=== PATIENT | female | born 1940 | race African-American/Black ===

== ENCOUNTER 2016-12-03 09:02 | Inpatient (IN) ==
[2016-12-03] MEDS ORDERED: ACETAMINOPHEN 500 MG TABLET PO STA (09:45)
[2016-12-03] MEDS ORDERED: VANCOMYCIN INJ 1,500 MG in SODIUM CHLORIDE 0.9% 250 ML IV STA (09:45)
--- NOTE | 2016-12-03 09:48 | Emergency Department Note ---
Justino Madrigal Mantricia, am scribing for, and in the presence of, Aditya Goldsmith MD 09:46. Rupal Madrigal Charles R, MD, personally performed the services described in this documentation, ascribed by Luis Badillo in my presence, and it is both accurate and complete 948 . Arrival - Arrival Chief Complaint: Altered Mental Status Stated Complaint: altered Mental Status ED Nursing Triage Note: pt transferred from [facility] due to fever that has been going on since the 26 of november. The staff there also states that the pt is more confused today. The fevers have been low grade not to exceed 100.0 f. Mode of Arrival: Stretcher Limitations: No Limitations Source: Patient, Family (Daughter) Time Seen by Provider: 12/03/16 09:30 - History of Present Illness HPI Narrative: Pt is a 75 y/o black female arriving to ED by EMS as a transfer from [facility] with c/o a fever that has been waxing and waning since November 26. Daughter reports that pt's temperature was checked last night at 101. She has an appointment to have her graft changed on Thursday. Pt dialyze every T//S. Pt also states that her bottom has been hurting due to her bed sores. She has a normal routine including feeding herself; however, pt is bedridden due to a CVA years ago. Pt's PCP is Dr. Rodrigues. No other complaints are reported to ED. Onset (ago): hour(s) Consistency: constant Severity: mild Allergies/Adverse Reactions: Allergies Allergy/AdvReac Type Severity Reaction Status Date / Time ADHESIVE PADS Allergy Severe BLISTER Uncoded 12/03/16 10:59 Home Medications: Home Medications Medication Instructions Recorded Confirmed Type Allopurinol [Zyloprim] 100 mg PO DAILY 08/29/16 10/29/16 History Aspirin [Ecotrin] 81 mg PO DAILY 08/29/16 10/29/16 History Bisoprolol Fumarate 10 mg PO DAILY 08/29/16 10/29/16 History Cetirizine HCl [ZyrTEC Cap] 10 mg PO DAILY 08/29/16 10/29/16 History Cinacalcet [Sensipar] 30 mg PO DAILY W/SUPPER 08/29/16 10/29/16 History Folic Acid Tab 1 mg PO DAILY 08/29/16 10/29/16 History Gabapentin Cap/Tab [Neurontin 200 mg PO DAILY 08/29/16 10/29/16 History Cap/Tab] HYDROcodone/ACETAMIN 7.5-325 1 tablet PO Q6H PRN 08/29/16 10/29/16 History [[place] 7.5-325] Insulin Glargine [Lantus] 22 unit SUBCUT BID 08/29/16 10/29/16 History Multivitamin [Multivitamins] 1 each PO DAILY 08/29/16 10/29/16 History NIFEdipine [Nifedipine ER] 90 mg PO DAILY 08/29/16 10/29/16 History Nitroglycerin Sl Tab [Nitrostat] 0.4 mg SL Q5M PRN 08/29/16 10/29/16 History Ondansetron Odt Tab [Zofran Odt] 4 mg PO Q4H PRN 08/29/16 10/29/16 History Simvastatin 20 mg PO BEDTIME 08/29/16 10/29/16 History Tizanidine HCl [Zanaflex] 2 mg PO Q6H 08/29/16 10/29/16 History metOLazone [Zaroxolyn] 2.5 mg PO DAILY 08/29/16 10/29/16 History predniSONE TAB [PredniSONE] 20 mg PO DAILY 08/29/16 10/29/16 History Acetaminophen 500 mg PO Q6HR PRN 08/30/16 10/29/16 History Lidocaine [Lidocaine 5% Patch] 1 patch TOP DAILY 08/30/16 10/29/16 History Sevelamer Carbonate Tab [Renvela 1,600 mg PO BID W/MEALS 08/30/16 10/29/16 History Tab] Ascorbic Acid [Vitamin C] 1,000 mg PO DAILY 10/09/16 10/29/16 History Insulin Lispro [HumaLOG] See Protocol SUBCUT ACHS 10/09/16 10/29/16 History Zinc Amino Acid Chelate [Zinc] 50 mg PO DAILY 10/09/16 10/29/16 History Review of System - Review of System 12 point system: reviewed and no additional remarkable complaints except as stated - Review of System Constitutional: Present: fever (101 last night). Absent: chills, diaphoresis Eyes: Absent: discharge, pain Head/Ears/Nose/Throat: Absent: earache, epistaxis Respiratory: Absent: cough, respiratory distress, wheezing Cardiovascular: Absent: chest pain, palpitations, orthopnea Gastrointestinal: Absent: abdominal pain, nausea, vomiting, diarrhea Genitourinary female: Absent: abnormal menses, dysuria Musculoskeletal: Present: back pain. Absent: arm pain, leg pain, neck pain Skin: Present: other (bed sores). 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 WRIST) Renal: History of: Dialysis, Renal Failure Gastrointestinal: History of: Clostridium Difficile No history of: GERD Hematology: History of: Anemia (anemia of chronic disease) No history of: Blood Transfusion Reaction - Surgical History Cardiac Surgeries: Sugical HX of: Cardiac Catheterization (WITH STENTS) Thoracic Surgeries: Patient denies;: Kidney (Renal Surgery) Neurologic Surgeries: Patient denies: Neurologic Surgery Abdominal Surgeries: Surgical HX of: Colonoscopy Reproductive Surgeries: Patient denies;: Gynecologic Surgery - Family History Family History: Reports;: Family Cancer (SISTER, OVARIAN CA), Family Diabetes ( SISTER, MOTHER), Family Heart Disease (SISTER, BROTHER, FATHER), Family Hypertension (BROTHER, SISTER, MOTHER, FATHER), Family Stroke (SISTER) Denies;: Family Anesthesia Reaction, Family Psychiatric Problems - Social History Smoking Status: Never smoker Frequency of Alcohol Use: None Type of Drug Use: None Exam Vital Signs: Vital Signs Temperature 99.7 F H 12/03/16 09:09 Pulse Rate 93 H 12/03/16 09:09 Respiratory Rate 20 12/03/16 09:09 Blood Pressure 108/52 12/03/16 09:09 O2 Sat by Pulse Oximetry 100 12/03/16 09:09 - General General appearance: alert, in no apparent distress - Head Head exam: Present: atraumatic, normocephalic, normal inspection - Eye Eye exam: Present: normal appearance, PERRL, EOMI - ENT ENT exam: Present: normal exam, normal oropharynx, mucous membranes moist, TM's normal bilaterally, normal external ear exam - Neck Neck exam: Present: normal inspection, full ROM, trachea midline. Absent: tenderness - Chest Chest inspection: Present: normal inspection, symmetric chest wall rise. Absent : tenderness - Respiratory Respiratory exam: Present: rales, rhonchi - Cardiovascular Cardiovascular exam: Present: normal rhythm, tachycardia, normal heart sounds - Abdominal Exam Abdominal exam: Present: soft, normal bowel sounds. Absent: distention, tenderness, guarding, rebound - Rectal Exam Rectal exam: Present: other (bed sores) - Extremities Exam Extremities exam: Present: normal inspection, full ROM, normal capillary refill , other (+1 LE edema). Absent: tenderness - Back Exam Back exam: Present: normal inspection, full ROM. Absent: tenderness - Neurological Exam Neurological exam: Present: alert, oriented X3, CN II-XII intact, normal gait, reflexes normal - Psychiatric Psychiatric exam: Present: normal affect, normal mood - Skin Skin exam: Present: warm, dry, intact, normal color Course - Consultations Consultation #1: Dr. Rodrigues will admit patient Time: 11:31 Results - Labs CBC & BMP: 12/03/16 10:00 12/03/16 09:45 Lab Results: I have reviewed the patients labs Labs: Laboratory Tests 12/03/16 10:00 WBC 21.7 H RBC 2.84 L Hgb 8.7 L Hct 28.5 L MCHC 30.5 L RDW 18.5 H Lymph % (Auto) 13.0 L Neut # (Auto) 15.8 H Haakon # (Auto) 2.2 H Lymphocytes 9 L - Diagnostic Findings Procedure: Chest x-ray: report reviewed by me (1. Mild cardiomegaly. 2. Venous congestion is suspected, and there are minimal opacities at the left lung base, which are favored to represent atelectasis. There is also minimal left pleural fluid. ) Critical Care Time Critical Care Time: Yes Total Critical Care Time: 60 Disposition Clinical Impression: Altered mental status, Sepsis, Anemia in chronic kidney disease, Kidney disease , chronic, end stage on dialysis, ESRD (end stage renal disease), Diabetic foot ulcers, Pneumonia, Leukocytosis, Fever, Hemodialysis catheter infection Case discussed with: patient, patient's family Disposition: Still a Patient Condition: Guarded Time of Disposition: 11:34 Sepsis - Sepsis Classification of Sepsis: Sepsis - Physical Exam Respiratory exam: rhonchi Cardiovascular exam: regular rate and rhythm Skin exam: normal color
[2016-12-03] MEDS ORDERED: VANCOMYCIN INJ 1,500 MG in SODIUM CHLORIDE 0.9% 500 ML IV STA (10:07)
[2016-12-03] MEDS ORDERED: VANCOMYCIN 1,000 MG VIAL ONE (10:12)
[2016-12-03] MEDS ORDERED: ACETAMINOPHEN 325 MG TABLET ONE (10:12)
--- NOTE | 2016-12-03 10:14 | XRay Report ---
Referring Physician: Aditya Goldsmith Exam: XR chest 1V portable Date: December 03, 2016 at 9:56 AM Reason: Shortness of breath, fever Comparison: Chest one view portable October 29, 2016 Findings: A right-sided hemodialysis catheter is present with its distal tip within the SVC. The cardiac silhouette is again mildly enlarged. There is likely venous congestion, and there is minimal atelectasis at the left lung base. No pneumothorax is identified, but there is minimal left pleural fluid. The osseous structures appear stable. Impression: 1. Mild cardiomegaly. 2. Venous congestion is suspected, and there are minimal opacities at the left lung base, which are favored to represent atelectasis. There is also minimal left pleural fluid. PROCEDURE INTERPRETED AT [facility] DEPARTMENT OF RADIOLOGY Final Report Signed by: Dr. Devonte Mulligan
[2016-12-03 10:16] LABS: Basophils # 0.1 10*3/uL (0.0-0.2); Basophils % 0.2 % (0.0-0.8); Eosinophils % 0.2 % (0.00-10.9); Hematocrit 28.5 VOL% (35.7-47.0); Hemoglobin 8.7 GM/DL (12.0-16.0); Immature Granulocytes % 3.8 %; Immature Granulocytes Absolute 0.83 #; Lymphocytes # 2.8 10*3/uL (1.4-4.0); Mean Corpuscular HGB Conc 30.5 GM/DL (32-36); Mean Corpuscular Hemoglobin 31 PG (27-34); Mean Corpuscular Volume 100.4 FL (87-102); Mean Platelet Volume 10.5 FL (9.6-12.0); Monocytes # 2.2 10*3/uL (0.11-0.8); Monocytes % 9.9 % (1.7-12.7); NRBC # 0.02 10*3/uL; Neutrophils # 15.8 10*3/uL (1.4-7.4); Neutrophils % 72.9 % (38.7-73.9); Platelet Count 346 T/CUMM (130-400); Red Blood Count 2.84 MC/CUMM (3.8-5.5); Red Cell Distribution Width 18.5 % (9.3-17.3); White Blood Count 21.7 T/CUMM (4-12)
[2016-12-03 10:24] LABS: INR 1.1; PT Patient Result 12.2 SECS
[2016-12-03] MEDS ORDERED: ACETAMINOPHEN 500 MG TABLET ONE (10:30)
[2016-12-03 10:47] LABS: Band Neutrophils 4 % (0-10); Hypochromasia 1+; Lymphocytes 9 % (20-55); Macrocytosis 1+; Segmented Neutrophils 82 % (50-85); Total Cells Counted 100
[2016-12-03 10:48] LABS: Platelet Estimate Normal
[2016-12-03 11:02] LABS: Alanine Aminotransferase 13 U/L (13-56); Alkaline Phosphatase 151 U/L (45-117); Amylase 21 U/L (25-115); Aspartate Amino Transferase 24 U/L (0-37); Bilirubin,Total < 0.39 MG/DL (0.2-1.0); Blood Urea Nitrogen 35 MG/DL (7-18); Calcium 8.1 MG/DL (8.5-10.1); Glucose 192 MG/DL (74-106); Osmolality,Calculated 287.7 MOS/KG (273-304); Potassium 4.3 MMOL/L (3.5-5.1); Sodium 138 MMOL/L (136-145); Total Protein 6.7 G/DL (6.4-8.3)
[2016-12-03 11:12] LABS: Lactic Acid 2.5 MMOL/L (0.4-2.0)
[2016-12-03 12:13] LABS: Sedimentation Rate-Westergren 86 MM/HR (0-30)
[2016-12-03] MEDS ORDERED: INSULIN REGULAR 100 UNIT/ML SUBCUT STA (13:28)
[2016-12-03] MEDS ORDERED: INSULIN REGULAR 100 UNIT/ML ONE (13:28)
[2016-12-03] MEDS ORDERED: LACTULOSE 20 GM/30 ML UDCUP PO PRN (13:54)
[2016-12-03] MEDS ORDERED: GLUCAGON 1 MG VIAL IM PRN ×2 (13:54→16:11)
[2016-12-03] MEDS ORDERED: ONDANSETRON 4 MG/2 ML VIAL IV PRN (13:54)
[2016-12-03] MEDS ORDERED: DEXTROSE 50% 25 GM/50 ML VIAL IV PRN ×2 (13:54→16:11)
[2016-12-03] MEDS ORDERED: ALBUTEROL/IPRATROPIUM 3 ML NEB RESP TX PRN (13:54)
[2016-12-03] MEDS ORDERED: cefTRIAXone 1,000 MG in SODIUM CHLORIDE 0.9% 100 ML IV SCH (15:00)
[2016-12-03] MEDS: SODIUM CHLORIDE 0.9% 1,000 ML IV SCH (15:03)
--- NOTE | 2016-12-03 16:09 | Family Practice History&Phys ---
Assessment and Plan (1) UTI (lower urinary tract infection) Status: Acute Assessment and plan: Patient has had fever altered mental state. Will obtain culture and started on appropriate antibiotic Current Visit: No (2) Altered mental status Status: Acute Assessment and plan: Patient has had confusion over the last several days prior to admission Current Visit: Yes (3) ESRD (end stage renal disease) Status: Chronic Assessment and plan: Patient is receiving dialysis followed by Dr. Schwartz Current Visit: Yes (4) Anemia in chronic kidney disease Status: Chronic Assessment and plan: Stable at present Current Visit: Yes (5) Diabetes mellitus Status: Chronic Assessment and plan: We will start on sliding scale and monitor closely Current Visit: No (6) Essential hypertension Status: Chronic Assessment and plan: Adequately controlled at present Current Visit: No (7) History of coronary artery stent placement Status: Chronic Current Visit: No (8) Right hemiparesis Status: Chronic Assessment and plan: Stable at present Current Visit: No (9) chronic lymphedema both lower ext. Status: Chronic Assessment and plan: Stable at present we will elevate legs Current Visit: No History of Present Illness Chief complaint: pyelonephritis History of present illness: Ms. Hernandez is a 75 year old female Pt is a 75 y/o black female arriving to ED by EMS as a transfer from [facility] with c/o a fever that has been waxing and waning since November 26. Daughter reports that pt's temperature was checked last night at 101. She has an appointment to have her graft changed on Thursday. Pt dialyze every T//S. Pt also states that her bottom has been hurting due to her bed sores. She has a normal routine including feeding herself; however, pt is bedridden due to a CVA years ago. No other complaints are reported to ED Home Medications Medication Instructions Recorded Confirmed Type RX: Allopurinol [Zyloprim] [place] [address]/29/16 12/03/16 History RX: Aspirin [Ecotrin] [place] [address]/29/16 12/03/16 History RX: Cinacalcet [Sensipar] 30 mg PO DAILY W/SUPPER 08/29/16 12/03/16 History RX: [place] Acid Tab [place] [address]/29/16 12/03/16 History RX: Gabapentin Cap/Tab [Neurontin 200 mg PO 0800 08/29/16 12/03/16 History Cap/Tab] RX: HYDROcodone/ACETAMIN 7.5-325 1 tablet PO Q6H PRN 08/29/16 12/03/16 History [[place] 7.5-325] RX: Insulin Glargine [Lantus] 22 unit SUBCUT BID@0500,1600 08/29/16 12/03/16 History RX: Multivitamin [Multivitamins] 1 each PO 0800 08/29/16 12/03/16 History RX: Nitroglycerin Sl Tab 0.4 mg SL Q5M PRN 08/29/16 12/03/16 History [Nitrostat] RX: Ondansetron Odt Tab [Zofran 4 mg PO Q4H PRN 08/29/16 12/03/16 History Odt] RX: Simvastatin 20 mg PO BEDTIME 08/29/16 12/03/16 History RX: Tizanidine HCl [Zanaflex] 2 mg PO Q6H 08/29/16 12/03/16 History RX: metOLazone [Zaroxolyn] 2.5 mg PO 0800 08/29/16 12/03/16 History RX: Lidocaine [Lidocaine 5% Patch] 1 patch TOP 79908/30/16 12/03/16 History RX: Sevelamer Carbonate Tab 1,600 mg PO BID W/MEALS 08/30/16 12/03/16 History [Renvela Tab] RX: Ascorbic Acid [Vitamin C] 1,000 mg PO 0800 10/09/16 12/03/16 History RX: Insulin Lispro [HumaLOG] See Protocol SUBCUT ACHS 10/09/16 12/03/16 History Acetaminophen Tab [Tylenol Tab] 1,000 mg PO Q6H PRN MDD 3GM/24H 12/03/16 History NIFEdipine [Nifedipine ER] 60 mg PO 0800 12/03/16 12/03/16 History RX: Omeprazole 20 mg PO 00 12/03/16 12/03/16 History Allergies Allergy/AdvReac Type Severity Reaction Status Date / Time ADHESIVE PADS Allergy Severe BLISTER Uncoded 12/03/16 10:59 Medical,Surgical,& Family Hx - Medical History Cardio: History of: CAD (history remote coronary stenting), Hypertension, [place] ( HISTORY OF STENTS IN 2010) Neurology: History of: Cerebrovascular Accident (RIGHT SIDE weakness) No history of: Seizures HEENT: History of: Eye Problem (BILATERAL CATARACT REMOVAL), Dental Problems ( DENTURES) Endocrine: History of: Diabetes Mellitus (IDDM), Diabetes Mellitus (NIDDM), Dyslipidemia Rheumatology: History of;: Gout (IN RIGHT HAND AND WRIST) Renal: History of: Dialysis, Renal Failure Comment Only: Renal Problems (FISTULA PORTPLACEMENT) Gastrointestinal: History of: Clostridium Difficile No history of: GERD Musculoskeletal: History of: Musculoskeletal Problems (ARTHRRITIS) Hematology: History of: Anemia (anemia of chronic disease) No history of: Blood Transfusion Reaction Other: History of: Miscellaneous Medical Problems - Surgical History Cardiac Surgeries: Sugical HX of: Cardiac Catheterization (WITH STENTS) Thoracic Surgeries: Patient denies;: Kidney (Renal Surgery) Neurologic Surgeries: Patient denies: Neurologic Surgery Abdominal Surgeries: Surgical HX of: Colonoscopy Reproductive Surgeries: Patient denies;: Gynecologic Surgery - Family History Family History: Reports;: Family Cancer (SISTER, OVARIAN CA), Family Diabetes ( SISTER, MOTHER), Family Heart Disease (SISTER, BROTHER, FATHER), Family Hypertension (BROTHER, SISTER, MOTHER, FATHER), Family Stroke (SISTER) Denies;: Family Anesthesia Reaction, Family Psychiatric Problems - Social History Smoking Status: Never smoker Frequency of Alcohol Use: None Type of Drug Use: None Marital Status: Lives With:: [employer] Functional capacity: bed bound Exam - Constitutional Vitals: Period Temp Pulse Resp BP Sys/Handley Pulse Ox Last 24 Hr 97.6 F-98.6 F 84-92 18-23 106-115/43-46 98-100 General appearance: mild distress - Head Head exam: Present: normal inspection - ENT ENT exam: Present: normal exam - Neck Neck exam: Present: normal inspection - Respiratory Respiratory exam: Present: clear to auscultation bilaterally - Cardiovascular Cardiovascular exam: Present: irregular rhythm, tachycardia - GI/Abdominal GI/Abdominal exam: Present: hyperactive bowel sounds, tenderness - Extremities Exam Extremities exam: Present: edema (lymphedema lower extremities) - Back Exam Back exam: Present: normal inspection - Neurological Exam Neurological exam: Present: alert - Psychiatric Psychiatric exam: Present: normal affect, flat affect - Skin Skin exam: Present: normal color Results - Labs CBC & BMP: 12/04/16 04:00 12/03/16 09:45
[2016-12-03] MEDS: MORPHINE 2 MG/1 ML SYRINGE IV PRN (16:11)
[2016-12-03] MEDS ORDERED: NITROGLYCERIN SL 0.4 MG TABLET SL PRN (16:18)
[2016-12-03] MEDS ORDERED: LEVOFLOXACIN INJ 500 MG in PREMIX 1 EACH IV SCH (16:30)
[2016-12-03] MEDS: INSULIN REGULAR 100 UNIT/ML SUBCUT SCH ×2 (16:57→22:37)
[2016-12-03] MEDS: CINACALCET 30 MG TABLET PO SCH (18:13)
[2016-12-03] MEDS: SEVELAMER CARBONATE 800 MG TABLET PO SCH (18:13)
[2016-12-03] MEDS: tiZANidine 4 MG TABLET PO SCH ×2 (18:13→22:37)
[2016-12-03] MEDS: ACETAMINOPHEN 325 MG TABLET PO PRN (21:11)
[2016-12-03] MEDS: DOCUSATE SODIUM 100 MG CAPSULE PO SCH (21:12)
[2016-12-03] MEDS: DESITIN 4OZ/NYSTATIN 15 GRAM MIXTURE PASTE TOP SCH (21:13)
[2016-12-03] MEDS: SIMVASTATIN 20 MG TABLET PO SCH (21:21)
[2016-12-04 06:48] LABS: Basophils % 0.2 % (0.0-0.8); Eosinophils # 0.1 10*3/uL (0.0-0.87); Eosinophils % 0.3 % (0.00-10.9); Hematocrit 25.6 VOL% (35.7-47.0); Hemoglobin 7.9 GM/DL (12.0-16.0); Immature Granulocytes % 2.8 %; Immature Granulocytes Absolute 0.61 #; Lymphocytes # 2.8 10*3/uL (1.4-4.0); Lymphocytes % 12.6 % (21.3-54.2); Mean Corpuscular HGB Conc 30.9 GM/DL (32-36); Mean Corpuscular Hemoglobin 31 PG (27-34); Mean Corpuscular Volume 100.4 FL (87-102); Mean Platelet Volume 10.7 FL (9.6-12.0); Monocytes # 2.5 10*3/uL (0.11-0.8); Monocytes % 11.5 % (1.7-12.7); Neutrophils % 72.6 % (38.7-73.9); Platelet Count 335 T/CUMM (130-400); Red Blood Count 2.55 MC/CUMM (3.8-5.5); Red Cell Distribution Width 18.6 % (9.3-17.3); White Blood Count 22.1 T/CUMM (4-12)
[2016-12-04] MEDS: INSULIN GLARGINE 100 UNIT/ML SUBCUT SCH ×2 (06:49→17:30)
[2016-12-04] MEDS: tiZANidine 4 MG TABLET PO SCH ×4 (06:50→23:03)
[2016-12-04 07:13] LABS: Apearance,Urine Cloudy (Clear); Glucose,Urine (UA) 150 mg/dL (Negative); Ketones,Urine 5 mg/dL (Negative); Nitrite,Urine Negative (Negative); Protein,Urine 100 MG/DL; Urine Color Yellow (Yellow); Urine Specific Gravity 1.013 (1.001-1.035)
[2016-12-04 07:14] LABS: Bilirubin,Urine Negative (Negative); Blood, Urine Small mg/dL (Negative); RBC,Urine 405 /HPF (0-4); Squamous Epithelial Cell,Urine Occasional /HPF (0-10); WBC,Urine 6218 /HPF (0-6)
[2016-12-04 07:15] LABS: Bacteria,Urine Occasional /HPF (Few); Mucus,Urine Occasional /LPF (Occasional)
[2016-12-04 07:31] LABS: Risk Ratio 5.06
[2016-12-04 07:42] LABS: Urine Urobilinogen < 2.0 EU/DL (0.2-1.0)
[2016-12-04 07:52] LABS: Hypochromasia 1+; Lymphocytes 10 % (20-55); Segmented Neutrophils 84 % (50-85); Total Cells Counted 100
[2016-12-04 07:53] LABS: Macrocytosis Slight; Platelet Estimate Normal
[2016-12-04 07:54] LABS: Albumin 1.9 G/DL (3.4-5.0); Bilirubin,Total 0.4 MG/DL (0.2-1.0); Calcium 8.4 MG/DL (8.5-10.1); Osmolality,Calculated 291.5 MOS/KG (273-304); Potassium 4.3 MMOL/L (3.5-5.1); Total Protein 6.2 G/DL (6.4-8.3)
[2016-12-04] MEDS: ASPIRIN EC 81 MG TABLET PO SCH (08:50)
[2016-12-04] MEDS: MULTIVITAMIN (CENTRUM) TABLET PO SCH (08:51)
[2016-12-04] MEDS: FOLIC ACID 1 MG TABLET PO SCH (08:51)
[2016-12-04] MEDS: LIDOCAINE 5% PATCH TRANSDERM SCH (08:51)
[2016-12-04] MEDS: GABAPENTIN 100 MG CAPSULE PO SCH (08:52)
[2016-12-04] MEDS: SEVELAMER CARBONATE 800 MG TABLET PO SCH ×2 (08:55→17:24)
[2016-12-04] MEDS: ASCORBIC ACID 500 MG TABLET PO SCH (08:55)
[2016-12-04] MEDS: ALLOPURINOL 100 MG TABLET PO SCH (08:56)
[2016-12-04] MEDS: metOLazone 2.5 MG TABLET PO SCH (08:56)
[2016-12-04] MEDS: DOCUSATE SODIUM 100 MG CAPSULE PO SCH ×2 (08:56→21:42)
[2016-12-04] MEDS: DESITIN 4OZ/NYSTATIN 15 GRAM MIXTURE PASTE TOP SCH ×2 (08:57→21:42)
[2016-12-04] MEDS: PANTOPRAZOLE 40 MG TABLET PO SCH (08:57)
[2016-12-04] MEDS: INSULIN REGULAR 100 UNIT/ML SUBCUT SCH ×4 (10:09→21:42)
--- NOTE | 2016-12-04 12:16 | Family Practice Progress Note ---
Family Practice - PN: Subj Interval history: Patient states she feels better this a.m. and confusion has resolved. Had a temperature of 102.6 during the night. Afebrile this a.m.. She denies any cough shortness of breath or other new complaints. Questionable atelectasis on initial chest x-ray and that is being repeated this a.m. she is presently on Levaquin which would cover both urinary tract and pneumonia. Blood and urine cultures are pending. Her a.m. labs revealed WBC of 22,100 hemoglobin of 7 and hematocrit of 25.6. Her a.m. creatinine is 9 this will be addressed by Dr. Schwartz. Patient has superficial skin breakdown on buttocks. I have ordered appropriate paste to be applied.. Her lung cano are clear abdomen is soft. Has persistent lymphedema of lower extremities but no signs of cellulitis. Discussed with patient and daughter. Will review chest x-ray and await cultures.. Exam (Progress Note) - Constitutional Vitals: Period Temp Pulse Resp BP Sys/Handley Pulse Ox Last 24 Hr 96.7 F-102.6 F 84-98 18-25 93-150/43-92 91-100 Results - Labs CBC & BMP: 12/04/16 04:00 12/03/16 09:45 Assessment and Plan (1) UTI (lower urinary tract infection) Status: Acute Assessment and plan: Patient has had fever altered mental state. Will obtain culture and started on appropriate antibiotic Current Visit: No (2) Altered mental status Status: Acute Assessment and plan: Patient has had confusion over the last several days prior to admission Current Visit: Yes (3) ESRD (end stage renal disease) Status: Chronic Assessment and plan: Patient is receiving dialysis followed by Dr. Schwartz Current Visit: Yes (4) Anemia in chronic kidney disease Status: Chronic Assessment and plan: Stable at present Current Visit: Yes (5) Diabetes mellitus Status: Chronic Assessment and plan: We will start on sliding scale and monitor closely Current Visit: No (6) Essential hypertension Status: Chronic Assessment and plan: Adequately controlled at present Current Visit: No (7) History of coronary artery stent placement Status: Chronic Current Visit: No (8) Right hemiparesis Status: Chronic Assessment and plan: Stable at present Current Visit: No (9) chronic lymphedema both lower ext. Status: Chronic Assessment and plan: Stable at present we will elevate legs Current Visit: No
--- NOTE | 2016-12-04 13:36 | Nephrology Consult Note ---
History of Present Illness Chief complaint: ESRD History of present illness: Ms. Hernandez is a 75 year old female with several chronic medical problems including ESRD. [facility] a [facility] as a result of cerebrovascular disease. She was sent to the ER for evaluation of fever and confusion. She was noted to have leukocytosis and pyuria. Preliminary blood cultures drawn last p.m. are positive for gram-positive cocci. She was treated with vancomycin and Rocephin. She states she feels better today. She denies shortness of breath. No nausea or vomiting. She denies dysuria despite her pyuria Home Medications Medication Instructions Recorded Confirmed Type Allopurinol [Zyloprim] 100 mg PO 0800 08/29/16 12/04/16 History Aspirin [Ecotrin] 81 mg PO 0800 08/29/16 12/04/16 History Cinacalcet [Sensipar] 30 mg PO DAILY W/SUPPER 08/29/16 12/04/16 History Folic Acid Tab 1 mg PO 0800 08/29/16 12/04/16 History Gabapentin Cap/Tab [Neurontin 200 mg PO 0800 08/29/16 12/04/16 History Cap/Tab] HYDROcodone/ACETAMIN 7.5-325 1 tablet PO DIRECTED 08/29/16 12/04/16 History [[place] 7.5-325] Insulin Glargine [Lantus] 22 unit SUBCUT BID@0500,1600 08/29/16 12/04/16 History Multivitamin [Multivitamins] 1 each PO 0800 08/29/16 12/04/16 History Nitroglycerin Sl Tab [Nitrostat] 0.4 mg SL Q5M PRN 08/29/16 12/04/16 History Ondansetron Odt Tab [Zofran Odt] 4 mg PO DIRECTED 08/29/16 12/04/16 History Simvastatin 20 mg PO BEDTIME 08/29/16 12/04/16 History Tizanidine HCl [Zanaflex] 2 mg PO Q6H 08/29/16 12/04/16 History metOLazone [Zaroxolyn] 2.5 mg PO 0800 08/29/16 12/04/16 History Sevelamer Carbonate Tab [Renvela 1,600 mg PO BID W/MEALS 08/30/16 12/04/16 History Tab] Ascorbic Acid [Vitamin C] 1,000 mg PO 0800 10/09/16 12/04/16 History Insulin Lispro [HumaLOG] See Protocol SUBCUT ACHS 10/09/16 12/04/16 History Acetaminophen Tab [Tylenol Tab] 500 mg PO Q6H PRN MDD 3GM/24H 12/03/16 12/04/16 History NIFEdipine [Nifedipine ER] 60 mg PO 0800 12/03/16 12/04/16 History Bisoprolol Fumarate [Zebeta] 10 mg PO DAILY 12/04/16 12/04/16 History Omeprazole [Prilosec] 20 mg PO DAILY 12/04/16 12/04/16 History Allergies Allergy/AdvReac Type Severity Reaction Status Date / Time ADHESIVE PADS Allergy Severe BLISTER Uncoded 12/03/16 10:59 Medical,Surgical,& Family Hx - Medical History Cardio: History of: CAD (history remote coronary stenting), Hypertension, [place] ( HISTORY OF STENTS IN 2009) Neurology: History of: Cerebrovascular Accident (RIGHT SIDE weakness) No history of: Seizures HEENT: History of: Eye Problem (BILATERAL CATARACT REMOVAL), Dental Problems ( DENTURES) Endocrine: History of: Diabetes Mellitus (IDDM), Diabetes Mellitus (NIDDM), Dyslipidemia Rheumatology: History of;: Gout (IN RIGHT HAND AND WRIST) Renal: History of: Dialysis, Renal Failure Comment Only: Renal Problems (FISTULA PORTPLACEMENT) Gastrointestinal: History of: Clostridium Difficile No history of: GERD Musculoskeletal: History of: Musculoskeletal Problems (ARTHRRITIS) Hematology: History of: Anemia (anemia of chronic disease) No history of: Blood Transfusion Reaction Other: History of: Miscellaneous Medical Problems - Surgical History Cardiac Surgeries: Sugical HX of: Cardiac Catheterization (WITH STENTS) Thoracic Surgeries: Patient denies;: Kidney (Renal Surgery) Neurologic Surgeries: Patient denies: Neurologic Surgery Abdominal Surgeries: Surgical HX of: Colonoscopy Reproductive Surgeries: Patient denies;: Gynecologic Surgery - Family History Family History: Reports;: Family Cancer (SISTER, OVARIAN CA), Family Diabetes ( SISTER, MOTHER), Family Heart Disease (SISTER, BROTHER, FATHER), Family Hypertension (BROTHER, SISTER, MOTHER, FATHER), Family Stroke (SISTER) Denies;: Family Anesthesia Reaction, Family Psychiatric Problems - Social History Smoking Status: Never smoker Frequency of Alcohol Use: None Type of Drug Use: None Review of Systems 12 point system: reviewed and no additional remarkable complaints except as stated Exam - Vital Signs Vital signs: Period Temp Pulse Resp BP Sys/Handley Pulse Ox Last 24 Hr 96.7 F-102.6 F 84-98 18-20 115-150/46-92 91-98 Exam: Gen.: Alert and oriented ENT: Pupils equal round reactive to light. EOMs intact. Mucous membranes moist. Neck: Supple. No JVD or bruit. Cardiovascular: Regular rate and rhythm. No murmur rub or gallop Lungs: Clear Abdomen: Soft. Nontender. Positive bowel sounds. No organomegaly Extremities: 1+ edema Results - Labs CBC & BMP: 12/04/16 04:00 12/04/16 06:50 Assessment and Plan (1) ESRD (end stage renal disease) Status: Chronic Assessment and plan: 75-year-old woman admitted with: * Bacteremia. Gram-positive cocci. Vancomycin will be dosed with dialysis * UTI. Gentamicin added for gram-negative rods * ESRD. Dialysis today * Diabetes mellitus * CAD * Cerebrovascular disease. Prior CVA Current Visit: Yes (2) Altered mental status Status: Acute Current Visit: Yes (3) Leukocytosis Status: Acute Current Visit: Yes (4) Sepsis Status: Acute Current Visit: Yes (5) UTI (lower urinary tract infection) Status: Acute Current Visit: No (6) Cerebrovascular disease Status: Chronic Current Visit: No (7) Coronary disease Status: Chronic Current Visit: No (8) Diabetes mellitus Status: Chronic Current Visit: No
--- NOTE | 2016-12-04 14:04 | XRay Report ---
Portable chest Date: 12/04/2016 Clinical history: Shortness of breath Comparison: 12/03/2016 Technique: Portable AP sitting chest Findings: Stable cardiomegaly and right IJ venous dialysis catheter. Larger small left pleural effusion with adjacent diffuse parenchymal findings. Stable mediastinum with degenerative changes. Impression: Stable right IJ venous dialysis catheter. Cardiomegaly with larger small left pleural effusion. Progressive adjacent atelectasis/infiltration/edema. PROCEDURE INTERPRETED AT [facility] DEPARTMENT OF RADIOLOGY Final Report Signed by: Dr. Corazon Fernando
[2016-12-04] MEDS ORDERED: HEPARIN 10,000 UNIT/10 ML VIAL IV PRN (14:11)
[2016-12-04] MEDS ORDERED: VANCOMYCIN INJ 1,000 MG in SODIUM CHLORIDE 0.9% 250 ML IV ONE (14:30)
[2016-12-04] MEDS ORDERED: GENTAMICIN INJ 80 MG in PREMIX 1 EACH IV ONE (14:30)
[2016-12-04] MEDS: CINACALCET 30 MG TABLET PO SCH (17:25)
--- NOTE | 2016-12-04 19:05 | Infectious Disease Consult ---
Assessment and Plan (1) MRSA (methicillin resistant Staphylococcus aureus) septicemia Status: Acute Assessment and plan: Suspect the source of the septicemia is her hemodialysis catheter. We need to ensure there is no deep-seated focus of infection particularly endocarditis. Recommendations: 1. Agree with vancomycin, we should try to get the trough level to around 20- 25. Consult pharmacy to assist with dosing and monitoring. 2. We can stop the levofloxacin 3. Echocardiogram to ensure no endocarditis; will start with TTE but she may end up needing ASHWIN if the TTE is of poor quality 4. Repeat blood cultures tomorrow 5. Her hemodialysis catheter is actually going to have to be removed in order for us to eradicate this infection; will discuss with nephrology tomorrow. Probably it can be removed after her next dialysis session she can continue vancomycin therapy and then she can get it replaced after several days Thank you very much for the consult. Will follow. Current Visit: Yes (2) Altered mental status Status: Acute Assessment and plan: Most likely due to her septicemia. Current Visit: Yes (3) ESRD (end stage renal disease) Status: Chronic Current Visit: Yes (4) Cerebrovascular disease Status: Chronic Current Visit: No (5) Diabetes mellitus Status: Chronic Current Visit: No (6) Essential hypertension Status: Chronic Current Visit: No History of Present Illness Chief complaint: Positive blood cultures History of present illness: Ms. Hernandez is a 75 year old female with multiple comorbidities including end- stage renal disease on hemodialysis via PermCath to her right subclavian area. She was sent to the hospital because of fever on and off for couple weeks and more recently worsening mental status. She resides in a half-way since being bedbound from a stroke some years ago. I was unable to get any reliable history from her today as she seemed confused so the history was obtained from reviewing her records. She had blood cultures done and admission in the coming back positive for MRSA so I am asked to assist with management. Home Medications Medication Instructions Recorded Confirmed Type Allopurinol [Zyloprim] 100 mg PO 0800 08/29/16 12/04/16 History Aspirin [Ecotrin] 81 mg PO 0800 08/29/16 12/04/16 History Cinacalcet [Sensipar] 30 mg PO DAILY W/SUPPER 08/29/16 12/04/16 History Folic Acid Tab 1 mg PO 0800 08/29/16 12/04/16 History Gabapentin Cap/Tab [Neurontin 200 mg PO 0800 08/29/16 12/04/16 History Cap/Tab] HYDROcodone/ACETAMIN 7.5-325 1 tablet PO DIRECTED 08/29/16 12/04/16 History [[place] 7.5-325] Insulin Glargine [Lantus] 22 unit SUBCUT BID@0500,1600 08/29/16 12/04/16 History Multivitamin [Multivitamins] 1 each PO 0800 08/29/16 12/04/16 History Nitroglycerin Sl Tab [Nitrostat] 0.4 mg SL Q5M PRN 08/29/16 12/04/16 History Ondansetron Odt Tab [Zofran Odt] 4 mg PO DIRECTED 08/29/16 12/04/16 History Simvastatin 20 mg PO BEDTIME 08/29/16 12/04/16 History Tizanidine HCl [Zanaflex] 2 mg PO Q6H 08/29/16 12/04/16 History metOLazone [Zaroxolyn] 2.5 mg PO 0800 08/29/16 12/04/16 History Sevelamer Carbonate Tab [Renvela 1,600 mg PO BID W/MEALS 08/30/16 12/04/16 History Tab] Ascorbic Acid [Vitamin C] 1,000 mg PO 0800 10/09/16 12/04/16 History Insulin Lispro [HumaLOG] See Protocol SUBCUT ACHS 10/09/16 12/04/16 History Acetaminophen Tab [Tylenol Tab] 500 mg PO Q6H PRN MDD 3GM/24H 12/03/16 12/04/16 History NIFEdipine [Nifedipine ER] 60 mg PO 0800 12/03/16 12/04/16 History Bisoprolol Fumarate [Zebeta] 10 mg PO DAILY 12/04/16 12/04/16 History Omeprazole [Prilosec] 20 mg PO DAILY 12/04/16 12/04/16 History Allergies Allergy/AdvReac Type Severity Reaction Status Date / Time ADHESIVE PADS Allergy Severe BLISTER Uncoded 12/03/16 10:59 ROS unobtainable: due to mental status Medical,Surgical,& Family Hx - Medical History Cardio: History of: CAD (history remote coronary stenting), Hypertension, [place] ( HISTORY OF STENTS IN 2009) Neurology: History of: Cerebrovascular Accident (RIGHT SIDE weakness) No history of: Seizures HEENT: History of: Eye Problem (BILATERAL CATARACT REMOVAL), Dental Problems ( DENTURES) Endocrine: History of: Diabetes Mellitus (IDDM), Diabetes Mellitus (NIDDM), Dyslipidemia Rheumatology: History of;: Gout (IN RIGHT HAND AND WRIST) Renal: History of: Dialysis, Renal Failure Comment Only: Renal Problems (FISTULA PORTPLACEMENT) Gastrointestinal: History of: Clostridium Difficile No history of: GERD Musculoskeletal: History of: Musculoskeletal Problems (ARTHRRITIS) Hematology: History of: Anemia (anemia of chronic disease) No history of: Blood Transfusion Reaction Other: History of: Miscellaneous Medical Problems - Surgical History Cardiac Surgeries: Sugical HX of: Cardiac Catheterization (WITH STENTS) Thoracic Surgeries: Patient denies;: Kidney (Renal Surgery) Neurologic Surgeries: Patient denies: Neurologic Surgery Abdominal Surgeries: Surgical HX of: Colonoscopy Reproductive Surgeries: Patient denies;: Gynecologic Surgery - Family History Family History: Reports;: Family Cancer (SISTER, OVARIAN CA), Family Diabetes ( SISTER, MOTHER), Family Heart Disease (SISTER, BROTHER, FATHER), Family Hypertension (BROTHER, SISTER, MOTHER, FATHER), Family Stroke (SISTER) Denies;: Family Anesthesia Reaction, Family Psychiatric Problems - Social History Smoking Status: Never smoker Frequency of Alcohol Use: None Type of Drug Use: None Infectious Disease Exam H&P - Constitutional Vitals: Vital Signs Temp Pulse Resp BP Pulse Ox 100.0 F H 78 16 141/99 92 L 12/04/16 17:10 12/04/16 17:10 12/04/16 17:10 12/04/16 17:10 12/04/16 17:10 Intake and Output 12/04/16 12/04/16 12/04/16 07:59 15:59 23:59 Intake Total 200 / 200 450 / 450 450 / 450 Balance 200 / 200 450 / 450 450 / 450 Intake: IV 200 / 200 Levaquin Inj 500 mg In 100 / 100 Premix 1 Each @ 100 mls/ hr IV Q24H OLIVIA Rx#: [id number] Rocephin 1,000 mg In Ns 100 / 100 100 ml @ 200 mls/hr IV Q24H OLIVIA Rx#:[id number] Oral 450 / 450 450 / 450 Other: Voiding Method Dialysis Patient # Voids 1 # Bowel Movements 0 0 Weight 107.955 kg Patient Weight 12/04/16 23:59 Weight 107.955 kg Exam: General: Patient chronically ill looking, appeared confused he was not answering appropriately HEENT: Mucous membranes pink and moist, anicteric acyanotic, LIV, no oral exudates Neck: Supple, no thyroid gland enlargement Respiratory system: Breath sounds vesicular, no crepitations or wheezes Cardiovascular: Normal S1 and S2, no murmurs appreciated Abdomen: Normal bowel sounds, soft nontender throughout, no organomegaly or mass Genitourinary: No suprapubic pain or bladder distention Extremities: no edema Skin: Hyperpigmentation of the skin of her lower extremities and some exfoliation it seems she had possibly a reaction to maybe a medication sometime ago and the lesions and now healing Reports - Labs CBC & BMP: 12/04/16 04:00 12/04/16 06:50 Labs: Laboratory Results - last 24 hr 12/04/16 12/04/16 12/04/16 00:44 04:00 06:50 WBC 22.1 H RBC 2.55 L Hgb 7.9 L Hct 25.6 L MCV 100.4 MCH 31 MCHC 30.9 L RDW 18.6 H Plt Count 335 MPV 10.7 Neut % (Auto) 72.6 Lymph % (Auto) 12.6 L [place] % (Auto) 11.5 Eos % (Auto) 0.3 Baso % (Auto) 0.2 Neut # (Auto) 16.0 H Lymph # (Auto) 2.8 [place] # (Auto) 2.5 H Eos # (Auto) 0.1 Baso # (Auto) 0.0 Total Counted 100 Immature Gran % 2.8 Nucleated RBC % 0.0 Immature Gran # 0.61 Segmented Neutrophils 84 Lymphocytes 10 L Monocytes 6 Nucleated RBCs # 0.00 Platelet Estimate Normal Hypochromasia 1+ Macrocytosis Slight Sodium 139 Potassium 4.3 Chloride 98 Carbon Dioxide 27 Anion Gap 18.3 H BUN 41 H Creatinine 9.00 H GFR Calculation 6 BUN/Creatinine Ratio 4.00 L Glucose 185 H Calculated Osmolality 291.5 Calcium 8.4 L Magnesium 2.0 Total Bilirubin 0.40 AST 23 ALT 15 Alkaline Phosphatase 148 H B-Natriuretic Peptide Total Protein 6.2 L Albumin 1.9 L Globulin 4.3 H Albumin/Globulin Ratio 0.4 L Triglycerides Cholesterol LDL Cholesterol VLDL Cholesterol HDL Cholesterol Heart Disease Risk Ratio Urine Color Yellow Urine Appearance Cloudy Urine pH 7.0 Ur Specific [place] 1.013 Urine Protein 100 Urine Glucose (UA) 150 Urine Ketones 5 Urine Blood Small Urine Nitrate Negative Urine Bilirubin Negative Urine Urobilinogen < 2.0 H Urine Leukocytes Moderate H Urine RBC 405 Urine WBC 6218 Urine WBC Clumps Many Ur Squamous Epith Cells Occasional Urine Bacteria Occasional Urine Mucus Occasional Ur Culture Indicated? Results to follow 12/04/16 12/04/16 06:50 Unknown WBC RBC Hgb Hct MCV MCH MCHC RDW Plt Count MPV Neut % (Auto) Lymph % (Auto) [place] % (Auto) Eos % (Auto) Baso % (Auto) Neut # (Auto) Lymph # (Auto) [place] # (Auto) Eos # (Auto) Baso # (Auto) Total Counted Immature Gran % Nucleated RBC % Immature Gran # Segmented Neutrophils Lymphocytes Monocytes Nucleated RBCs # Platelet Estimate Hypochromasia Macrocytosis Sodium Potassium Chloride Carbon Dioxide Anion Gap BUN Creatinine GFR Calculation BUN/Creatinine Ratio Glucose Calculated Osmolality Calcium Magnesium Total Bilirubin AST ALT Alkaline Phosphatase B-Natriuretic Peptide 239 H Total Protein Albumin Globulin Albumin/Globulin Ratio Triglycerides 205 H Cholesterol 81 LDL Cholesterol 31.0 VLDL Cholesterol 41.0 HDL Cholesterol 16 L Heart Disease Risk Ratio 5.06 Urine Color Urine Appearance Urine pH Ur Specific [place] Urine Protein Urine Glucose (UA) Urine Ketones Urine Blood Urine Nitrate Urine Bilirubin Urine Urobilinogen Urine Leukocytes Urine RBC Urine WBC Urine WBC Clumps Ur Squamous Epith Cells Urine Bacteria Urine Mucus Ur Culture Indicated? - Reports Microbiology: Microbiology 12/04/16 Unknown MRSA (PCR) - Final Blood Mrsa Positive Staph aureus Positive 12/04/16 Unknown MRSA (PCR) - Final Blood Mrsa Positive Staph aureus Positive 12/03/16 16:46 Blood Culture - Preliminary Blood Gram Positive Cocci 12/03/16 16:46 Blood Culture - Preliminary Blood Gram Positive Cocci 12/03/16 17:44 Urine Culture - Preliminary Urine,Voided Gram Negative Rods - Diagnostic Findings Procedure: Chest x-ray: report reviewed by me (No mention of consolidation)
[2016-12-04] MEDS ORDERED: VANCOMYCIN INJ 1,000 MG in SODIUM CHLORIDE 0.9% 250 ML IV PRN (20:41)
[2016-12-04] MEDS: SIMVASTATIN 20 MG TABLET PO SCH (21:42)
[2016-12-05] MEDS: INSULIN GLARGINE 100 UNIT/ML SUBCUT SCH ×2 (05:14→17:17)
[2016-12-05] MEDS: tiZANidine 4 MG TABLET PO SCH ×4 (05:14→23:08)
[2016-12-05 06:54] LABS: Basophils % 0.2 % (0.0-0.8); Eosinophils # 0.3 10*3/uL (0.0-0.87); Eosinophils % 1.4 % (0.00-10.9); Hematocrit 26.2 VOL% (35.7-47.0); Hemoglobin 7.9 GM/DL (12.0-16.0); Immature Granulocytes % 1.8 %; Immature Granulocytes Absolute 0.36 #; Lymphocytes # 1.4 10*3/uL (1.4-4.0); Lymphocytes % 7.1 % (21.3-54.2); Mean Corpuscular HGB Conc 30.2 GM/DL (32-36); Mean Corpuscular Hemoglobin 30 PG (27-34); Mean Platelet Volume 10.8 FL (9.6-12.0); Monocytes # 1.8 10*3/uL (0.11-0.8); Monocytes % 8.9 % (1.7-12.7); Neutrophils # 16.2 10*3/uL (1.4-7.4); Neutrophils % 80.6 % (38.7-73.9); Platelet Count 305 T/CUMM (130-400); Red Blood Count 2.62 MC/CUMM (3.8-5.5); Red Cell Distribution Width 18.6 % (9.3-17.3); White Blood Count 20.1 T/CUMM (4-12)
[2016-12-05 07:25] LABS: Hypochromasia 1+; Macrocytosis Slight; Platelet Estimate Adequate
[2016-12-05 07:46] LABS: Calcium 8.3 MG/DL (8.5-10.1); Free T4 (Free Thyroxine) 1.11 NG/DL (0.76-1.46); Osmolality,Calculated 277.2 MOS/KG (273-304); Potassium 4.7 MMOL/L (3.5-5.1); Thyroid Stimulating Hormone 2.88 uIU/ml (0.358-3.74)
--- NOTE | 2016-12-05 08:01 | Family Practice Progress Note ---
Family Practice - PN: Subj Interval history: Patient states she feels better this a.m. she has a febrile this a.m. with normal vitals. Blood cultures positive for MRSA urine culture positive gram- negative rods patient presently receiving Levaquin and vancomycin. Appreciate consults from infectious disease. Patient is scheduled to have dialysis catheter changed. Her a.m. labs revealed a WBC of 20,100 hemoglobin and hematocrit are stable. Discussed in detail with patient and daughter. Hopefully will continue to respond to therapy Exam (Progress Note) - Constitutional Vitals: Period Temp Pulse Resp BP Sys/Handley Pulse Ox Last 24 Hr 96.9 F-100.5 F 77-83 16-21 100-141/34-99 92-97 Results - Labs CBC & BMP: 12/05/16 06:27 12/05/16 06:27 Assessment and Plan (1) UTI (lower urinary tract infection) Status: Acute Assessment and plan: Patient has had fever altered mental state. Will obtain culture and started on appropriate antibiotic Current Visit: No (2) Altered mental status Status: Acute Assessment and plan: Patient has had confusion over the last several days prior to admission Current Visit: Yes (3) ESRD (end stage renal disease) Status: Chronic Assessment and plan: Patient is receiving dialysis followed by Dr. Schwartz Current Visit: Yes (4) Anemia in chronic kidney disease Status: Chronic Assessment and plan: Stable at present Current Visit: Yes (5) Diabetes mellitus Status: Chronic Assessment and plan: We will start on sliding scale and monitor closely Current Visit: No (6) Essential hypertension Status: Chronic Assessment and plan: Adequately controlled at present Current Visit: No (7) History of coronary artery stent placement Status: Chronic Current Visit: No (8) Right hemiparesis Status: Chronic Assessment and plan: Stable at present Current Visit: No (9) chronic lymphedema both lower ext. Status: Chronic Assessment and plan: Stable at present we will elevate legs Current Visit: No
[2016-12-05] MEDS: MULTIVITAMIN (CENTRUM) TABLET PO SCH (09:44)
[2016-12-05] MEDS: ASPIRIN EC 81 MG TABLET PO SCH (09:44)
[2016-12-05] MEDS: LIDOCAINE 5% PATCH TRANSDERM SCH (09:45)
[2016-12-05] MEDS: FOLIC ACID 1 MG TABLET PO SCH (09:45)
[2016-12-05] MEDS: GABAPENTIN 100 MG CAPSULE PO SCH (09:46)
[2016-12-05] MEDS: SEVELAMER CARBONATE 800 MG TABLET PO SCH ×2 (09:47→16:54)
[2016-12-05] MEDS: ASCORBIC ACID 500 MG TABLET PO SCH (09:48)
[2016-12-05] MEDS: ALLOPURINOL 100 MG TABLET PO SCH (09:49)
[2016-12-05] MEDS: metOLazone 2.5 MG TABLET PO SCH (09:49)
[2016-12-05] MEDS: PANTOPRAZOLE 40 MG TABLET PO SCH (09:49)
[2016-12-05] MEDS: DOCUSATE SODIUM 100 MG CAPSULE PO SCH ×2 (09:50→20:25)
[2016-12-05] MEDS: BISOPROLOL 5 MG TABLET PO SCH (09:50)
[2016-12-05] MEDS: DESITIN 4OZ/NYSTATIN 15 GRAM MIXTURE PASTE TOP SCH ×2 (09:50→20:28)
[2016-12-05] MEDS: INSULIN REGULAR 100 UNIT/ML SUBCUT SCH ×4 (10:08→21:49)
--- NOTE | 2016-12-05 10:29 | Infectious Disease Progress ---
Assessment and Plan (1) MRSA (methicillin resistant Staphylococcus aureus) septicemia Status: Acute Assessment and plan: Suspect the source of the septicemia is her hemodialysis catheter. We need to rule out endocarditis. Recommendations: 1. Continue vancomycin, we should try to get the trough level to around 20-25. I discussed this with the clinical pharmacist. The patient got a total of 2.5 g of vancomycin so far. 2. Echocardiogram to ensure no endocarditis; will start with TTE but she may end up needing ASHWIN if the TTE is of poor quality 3. Case discussed with Dr. Schwartz and he agreed that she could have her dialysis catheter removed after dialysis tomorrow. She will be treated with vancomycin over the weekend and her catheter will be replaced early next week. Discussed with her daughter at bedside Current Visit: Yes (2) Altered mental status Status: Acute Assessment and plan: Most likely due to her septicemia, seems improved today. Current Visit: Yes (3) ESRD (end stage renal disease) Status: Chronic Current Visit: Yes (4) Cerebrovascular disease Status: Chronic Current Visit: No (5) Diabetes mellitus Status: Chronic Current Visit: No (6) Essential hypertension Status: Chronic Current Visit: No Infectious Disease - PN: Subj Interval history: Patient little more alert today, her daughter was with her. She still having intermittent fevers T-max 100.5 last night. No vomiting or diarrhea, her appetite is very poor however. No cough or shortness of breath. Infectious Disease Exam (PN) - Constitutional Vitals: Temp Pulse Resp BP Pulse Ox 97.2 F L 83 20 122/58 97 12/05/16 04:00 12/05/16 04:00 12/05/16 04:00 12/05/16 04:00 12/05/16 04:00 General appearance: mild distress Exam: General appearance: no acute distress but looks a bit ill - Eye Eye exam: Present: EOMI. no icterus Pupils: Present: LIV - ENT ENT exam: no oral exudates but mouth very dry - Respiratory Respiratory exam: vesicular BS, no crepitations or wheezes - Cardiovascular Cardiovascular exam: regular rate and rhythm, no murmurs - GI/Abdominal GI/Abdominal exam: normal bowel sounds, soft, non-tender, no organomegaly or mass - Extremities Exam Extremities exam: Mild bilateral lower extremity edema - Skin Skin exam: Dry skin with exfoliation to legs and hyperpigmentation, she has stage II sacral decubitus ulceration Results - Labs CBC & BMP: 12/05/16 06:27 12/05/16 06:27 Lab Results: I have reviewed the past 24 hour labs
[2016-12-05] MEDS: SODIUM CHLORIDE 0.9% 1,000 ML IV SCH (11:54)
[2016-12-05] MEDS ORDERED: LEVOFLOXACIN INJ 250 MG in PREMIX 1 EACH IV SCH (16:00)
--- NOTE | 2016-12-05 16:03 | Nephrology Progress Note ---
Nephrology - PN: Subj Interval history: She feels better overall today. No shortness of breath. Exam (PN)-Nephrology - Vital Signs Vital signs: Period Temp Pulse Resp BP Sys/Handley Pulse Ox Last 24 Hr 96.9 F-100.5 F 78-88 16-21 100-158/45-99 92-100 Exam: Gen.: Alert and oriented x3. ENT: Pupils equal round reactive to light. EOMs intact. Mucous membranes moist. Neck: Supple. No JVD or bruit. Cardiovascular: Regular rate and rhythm. No murmur rub or gallop Lungs: Clear Abdomen: Soft. Nontender. Positive bowel sounds. No organomegaly Extremities: Trace edema - Lab 12/05/16 06:27 12/05/16 06:27 Most recent lab results Calcium 8.3 MG/DL (8.5-10.1) L 12/05/16 06:27 Magnesium 2.0 MG/DL (1.8-2.4) 12/04/16 06:50 Assessment and Plan (1) ESRD (end stage renal disease) Status: Chronic Assessment and plan: 75-year-old woman admitted with: * Bacteremia. Gram-positive cocci. Continue vancomycin. Dialysis catheter will be removed after dialysis Thursday. Replace Thursday * UTI. Gentamicin added for gram-negative rods * ESRD. Dialysis today * Diabetes mellitus * CAD * Cerebrovascular disease. Prior CVA Current Visit: Yes (2) Altered mental status Status: Acute Current Visit: Yes (3) Leukocytosis Status: Acute Current Visit: Yes (4) Sepsis Status: Acute Current Visit: Yes (5) UTI (lower urinary tract infection) Status: Acute Current Visit: No (6) Cerebrovascular disease Status: Chronic Current Visit: No (7) Coronary disease Status: Chronic Current Visit: No (8) Diabetes mellitus Status: Chronic Current Visit: No
[2016-12-05] MEDS: CINACALCET 30 MG TABLET PO SCH (16:54)
[2016-12-05] MEDS: SIMVASTATIN 20 MG TABLET PO SCH (20:25)
--- NOTE | 2016-12-05 21:17 | ECHO Report ---
Sommer Hernandez Exam Date: 12/05/2016 10:17 Referring Physician: Technologist: Norma Espinal Age: 75 Ht (in): 66 Wt (lb): 238 Gender: F Exam Location: [facility] Echo Indications: Essential (primary) hypertension, MRSA, End stage renal disease, AMS, Diabetes BP: 122 / 58 HR: 83 Rhythm: Sinus Technical Quality: IMPRESSIONS Normal left ventricular size, with moderate concentric hypertrophy, severe hypertrophy of the septum, without outflow tract obstruction. Estimated left ventricular ejection fraction 60%. Grade 2 diastolic dysfunction The anterior mitral leaflet is thickened. Trace regurgitation. Mild aortic valve sclerosis, without stenosis or insufficiency. Mild biatrial enlargement. Mild pulmonary hypertension. No large vegetations or masses are visualized. Consider ASHWIN if clinically indicated. MEASUREMENTS (Male / Female) Normal Values 2D ECHO LV Diastolic Diameter PLAX 3.7 cm 4.2 - 5.9 / 3.9 - 5.3 cm LV Systolic Diameter PLAX 2.3 cm LV Fractional Shortening PLAX 39.4 % IVS Diastolic Thickness 2.1 cm 0.6 - 1.0 / 0.6 - 0.9 cm LVPW Diastolic Thickness 1.5 cm 0.6 - 1.0 / 0.6 - 0.9 cm RV Internal Dim ED PLAX 2.3 cm Aortic Root Diameter 2.6 cm LA Systolic Diameter LX 3.0 cm 3.0 - 4.0 / 2.7 - 3.8 cm DOPPLER TR Peak Velocity 309.0 cm/s TR Peak Gradient 38.2 mmHg FINDINGS Left Ventricle Normal left ventricular size, with moderate concentric hypertrophy, severe hypertrophy of the septum, without outflow tract obstruction. Estimated left ventricular ejection fraction 60%. Grade 2 diastolic dysfunction Right Ventricle Normal right ventricular size and systolic function Right Atrium The right atrium is mildly enlarged. Left Atrium The left atrium is mildly dilated. Mitral Valve The anterior mitral leaflet is thickened. Trace regurgitation. Aortic Valve Mild aortic valve sclerosis, without stenosis or insufficiency. Tricuspid Valve Morphologically normal tricuspid valve. Mild tricuspid valve regurgitation. Tricuspid regurgitation velocities suggest a PAP of 48 mmHg. Pulmonic Valve Pulmonic valve not well visualized. Pericardium No pericardial effusion. Aorta Normal size aortic root and proximal ascending aorta. Juan Livingston (Electronically Signed) Final Date: 05 Dec 2016 21:16
[2016-12-06 03:19] LABS: Basophils % 0.2 % (0.0-0.8); Eosinophils # 0.5 10*3/uL (0.0-0.87); Eosinophils % 2.3 % (0.00-10.9); Hematocrit 24.8 VOL% (35.7-47.0); Hemoglobin 7.7 GM/DL (12.0-16.0); Immature Granulocytes % 2.2 %; Immature Granulocytes Absolute 0.42 #; Lymphocytes # 1.8 10*3/uL (1.4-4.0); Lymphocytes % 9.5 % (21.3-54.2); Mean Corpuscular Hemoglobin 31 PG (27-34); Mean Corpuscular Volume 98.4 FL (87-102); Mean Platelet Volume 11.1 FL (9.6-12.0); Monocytes # 1.5 10*3/uL (0.11-0.8); Monocytes % 7.9 % (1.7-12.7); Neutrophils % 77.9 % (38.7-73.9); Platelet Count 273 T/CUMM (130-400); Red Blood Count 2.52 MC/CUMM (3.8-5.5); Red Cell Distribution Width 18.6 % (9.3-17.3); White Blood Count 19.2 T/CUMM (4-12)
[2016-12-06 03:50] LABS: Calcium 8.3 MG/DL (8.5-10.1); Osmolality,Calculated 272.4 MOS/KG (273-304); Potassium 4.4 MMOL/L (3.5-5.1)
[2016-12-06] MEDS: tiZANidine 4 MG TABLET PO SCH ×4 (05:17→23:44)
[2016-12-06] MEDS: INSULIN GLARGINE 100 UNIT/ML SUBCUT SCH ×2 (05:18→17:13)
[2016-12-06] MEDS ORDERED: VANCOMYCIN INJ 1,500 MG in SODIUM CHLORIDE 0.9% 500 ML IV PRN (07:00)
--- NOTE | 2016-12-06 07:41 | Family Practice Progress Note ---
Family Practice - PN: Subj Interval history: Patient states she is feeling much better. She has had 4 positive blood culture for gram-positive [place] appears to be MRSA. She is to get her dialysis catheter replaced as it is probably the source of her sepsis. Patient states she is not having any chest pain or shortness of breath this morning. Exam (Progress Note) - Constitutional Vitals: Period Temp Pulse Resp BP Sys/Handley Pulse Ox Last 24 Hr 96.7 F-100.1 F 70-88 18-20 96-158/36-69 94-100 Exam: Objective reveals well-developed black female in no acute distress. She is smiling and states she feels much better. Cardiovascular: Heart rates regular without murmurs or gallops. Respiratory: Lungs clear to auscultation bilaterally. Abdomen: Abdomen soft and nontender to palpation. Results - Labs CBC & BMP: 12/06/16 02:42 12/06/16 02:42 Lab Results: I have reviewed the past 24 hour labs Assessment and Plan (1) Infection of hemodialysis catheter Status: Acute Assessment and plan: 12/06/2016: Patient's catheter is to be replaced. Current Visit: Yes (2) MRSA (methicillin resistant Staphylococcus aureus) septicemia Status: Acute Assessment and plan: 12/06/2016: Patient is improving on IV vancomycin. Current Visit: Yes
[2016-12-06] MEDS ORDERED: ALTEPLASE 2 MG VIAL IV PRN (09:04)
--- NOTE | 2016-12-06 10:47 | Dialysis Note ---
Dialysis Note - Dialysis Note Ms. Hernandez is seen during her hemodialysis. She has an MRSA bacteremia and is to have her dialysis catheter removed after dialysis today. She is alert and oriented and in no distress. The catheter is working only marginally well and will be removed after dialysis to help clear her sepsis.
[2016-12-06] MEDS: SODIUM CHLORIDE 0.9% 1,000 ML IV SCH ×2 (11:10→14:57)
[2016-12-06] MEDS: INSULIN REGULAR 100 UNIT/ML SUBCUT SCH ×4 (11:11→20:07)
--- NOTE | 2016-12-06 11:33 | Event Note ---
Removal of her dialysis catheter has been requested. I did discuss the procedure and risks with the patient this morning and she agrees to proceed.
[2016-12-06] MEDS ORDERED: BUPIVACAINE MPF 0.25% /EPI 30 ML VIAL ONE (12:33)
[2016-12-06] MEDS ORDERED: LIDOCAINE 2%/EPI 20 ML VIAL ONE (12:33)
[2016-12-06] MEDS ORDERED: PROPOFOL 200 MG/20 ML VIAL IV ONE (13:00)
[2016-12-06] MEDS ORDERED: LIDOCAINE 2% 5 ML VIAL ONE (13:00)
[2016-12-06] MEDS ORDERED: ONDANSETRON 4 MG/2 ML VIAL ONE (13:00)
--- NOTE | 2016-12-06 13:19 | Operative Note ---
Date of procedure: 12/06/16 Pre-op diagnosis: Infected tunneled hemodialysis catheter right internal jugular vein Post-op diagnosis: same Procedure: Removal infected tunneled hemodialysis catheter right internal jugular vein Findings and technique: After informed consent was obtained patient was brought to the operating room and placed in supine position. After IV sedation was administered the patient's neck and chest was prepped and draped in usual sterile fashion. Local anesthesia was infiltrated in the cuff dissected away from the skin exit site and the catheter removed and the tips were then sterilely cut off the end of the catheter and sent in a sterile specimen cup for culture. Pressure was held over the tract of the catheter to achieve hemostasis and a sterile dressing applied. Anesthesia: MAC, local Surgeon / Physician: Bipin Briones III. Estimated blood loss: none Specimens: other (Culture) Condition: stable Disposition: PACU Results - Labs CBC & BMP: 12/06/16 02:42 12/06/16 02:42 Discharge Plan - Discharge Medications No Action Ondansetron Odt Tab [Zofran Odt] 4 mg PO DIRECTED Cinacalcet [Sensipar] 30 mg PO DAILY W/SUPPER Insulin Glargine [Lantus] 22 unit SUBCUT BID@0500,1600 Allopurinol [Zyloprim] 100 mg PO 0800 HYDROcodone/ACETAMIN 7.5-325 [[place] 7.5-325] 1 tablet PO DIRECTED Nitroglycerin Sl Tab [Nitrostat] 0.4 mg SL Q5M PRN PRN Reason: Chest Pain metOLazone [Zaroxolyn] 2.5 mg PO 0800 Folic Acid Tab 1 mg PO 0800 Multivitamin [Multivitamins] 1 each PO 0800 Tizanidine HCl [Zanaflex] 2 mg PO Q6H Sevelamer Carbonate Tab [Renvela Tab] 1,600 mg PO BID W/MEALS Insulin Lispro [HumaLOG] See Protocol SUBCUT ACHS Acetaminophen Tab [Tylenol Tab] 500 mg PO Q6H PRN MDD 3GM/24H PRN Reason: Fever, Headache, Mild Pain Bisoprolol Fumarate [Zebeta] 10 mg PO DAILY Gabapentin Cap/Tab [Neurontin Cap/Tab] 200 mg PO 0800 Aspirin [Ecotrin] 81 mg PO 0800 Simvastatin 20 mg PO BEDTIME Ascorbic Acid [Vitamin C] 1,000 mg PO 0800 NIFEdipine [Nifedipine ER] 60 mg PO 0800 Omeprazole [Prilosec] 20 mg PO DAILY - Follow Up or Referral - Forms/Instructions
--- NOTE | 2016-12-06 13:21 | Anesthesia Post-Op ---
Anesthesia Post OP - Post Ansesthetic Evaluation Patient seen in post op: Yes Resp: within normal limits CV: within normal limits Mental: within normal limits Temp: within normal limits [id number]: within normal limits Nausea and Vomiting: within normal limits Pain: within normal limits
[2016-12-06] MEDS ORDERED: SODIUM CHLORIDE 0.9% 250 ML IV ONE (13:22)
[2016-12-06] MEDS: GABAPENTIN 100 MG CAPSULE PO SCH (14:24)
[2016-12-06] MEDS: MULTIVITAMIN (CENTRUM) TABLET PO SCH (14:25)
[2016-12-06] MEDS: ASCORBIC ACID 500 MG TABLET PO SCH (14:25)
[2016-12-06] MEDS: DOCUSATE SODIUM 100 MG CAPSULE PO SCH ×2 (14:26→20:09)
[2016-12-06] MEDS: SEVELAMER CARBONATE 800 MG TABLET PO SCH ×2 (14:26→17:13)
[2016-12-06] MEDS: LIDOCAINE 5% PATCH TRANSDERM SCH (14:27)
[2016-12-06] MEDS: ASPIRIN EC 81 MG TABLET PO SCH (14:54)
[2016-12-06] MEDS: metOLazone 2.5 MG TABLET PO SCH (14:54)
[2016-12-06] MEDS: FOLIC ACID 1 MG TABLET PO SCH (14:54)
[2016-12-06] MEDS: DESITIN 4OZ/NYSTATIN 15 GRAM MIXTURE PASTE TOP SCH ×2 (14:55→20:08)
[2016-12-06] MEDS: BISOPROLOL 5 MG TABLET PO SCH (14:55)
[2016-12-06] MEDS: PANTOPRAZOLE 40 MG TABLET PO SCH (14:55)
[2016-12-06] MEDS: ALLOPURINOL 100 MG TABLET PO SCH (14:55)
[2016-12-06] MEDS ORDERED: VANCOMYCIN INJ 1,500 MG in SODIUM CHLORIDE 0.9% 500 ML IV ONE (16:00)
[2016-12-06] MEDS: CINACALCET 30 MG TABLET PO SCH (17:14)
[2016-12-06] MEDS: MORPHINE 2 MG/1 ML SYRINGE IV PRN (18:09)
[2016-12-06] MEDS: SIMVASTATIN 20 MG TABLET PO SCH (20:08)
[2016-12-07] MEDS: tiZANidine 4 MG TABLET PO SCH ×4 (05:46→22:57)
[2016-12-07] MEDS: INSULIN GLARGINE 100 UNIT/ML SUBCUT SCH ×2 (05:46→16:58)
[2016-12-07 07:46] LABS: Calcium 7.7 MG/DL (8.5-10.1); Osmolality,Calculated 273.2 MOS/KG (273-304); Potassium 4.3 MMOL/L (3.5-5.1)
--- NOTE | 2016-12-07 07:58 | Family Practice Progress Note ---
Family Practice - PN: Subj Interval history: Patient states she is feeling some better today. She had removal of her tunnel catheter yesterday by Dr. Anselmo LOUIE. I am certain she will have MRSA on that culture as well. Exam (Progress Note) - Constitutional Vitals: Period Temp Pulse Resp BP Sys/Handley Pulse Ox Last 24 Hr 97.2 F-98 F 82-118 16-20 96-148/38-77 95-100 Exam: Objective reveals well-developed black female in no acute distress. She is smiling and states she feels much better. Cardiovascular: Heart rates regular without murmurs or gallops. Respiratory: Lungs clear to auscultation bilaterally. Abdomen: Abdomen soft and nontender to palpation. Results - Labs CBC & BMP: 12/06/16 02:42 12/07/16 06:59 Lab Results: I have reviewed the past 24 hour labs Assessment and Plan (1) Infection of hemodialysis catheter Status: Acute Assessment and plan: 12/06/2016: Patient's catheter is to be replaced. 5 08/20/2016: Patient had tunnel catheter removed yesterday. Current Visit: Yes (2) MRSA (methicillin resistant Staphylococcus aureus) septicemia Status: Acute Assessment and plan: 12/06/2016: Patient is improving on IV vancomycin. 11/29/2016: Patient is receiving vancomycin. Current Visit: Yes
[2016-12-07 08:18] LABS: Basophils % 0.1 % (0.0-0.8); Eosinophils # 0.2 10*3/uL (0.0-0.87); Eosinophils % 1.2 % (0.00-10.9); Hematocrit 22.2 VOL% (35.7-47.0); Immature Granulocytes % 2.4 %; Immature Granulocytes Absolute 0.48 #; Lymphocytes # 1.9 10*3/uL (1.4-4.0); Lymphocytes % 9.6 % (21.3-54.2); Mean Corpuscular HGB Conc 30.6 GM/DL (32-36); Mean Corpuscular Hemoglobin 31 PG (27-34); Mean Corpuscular Volume 101.4 FL (87-102); Mean Platelet Volume 10.7 FL (9.6-12.0); Monocytes # 1.7 10*3/uL (0.11-0.8); Monocytes % 8.3 % (1.7-12.7); Neutrophils # 15.8 10*3/uL (1.4-7.4); Neutrophils % 78.4 % (38.7-73.9); Platelet Count 264 T/CUMM (130-400); Red Blood Count 2.19 MC/CUMM (3.8-5.5); Red Cell Distribution Width 18.9 % (9.3-17.3); White Blood Count 20.1 T/CUMM (4-12)
[2016-12-07 08:21] LABS: Hemoglobin 6.8 GM/DL (12.0-16.0)
[2016-12-07 08:40] LABS: Band Neutrophils 1 % (0-10); Eosinophils 3 % (0-10); Hypochromasia 1+; Lymphocytes 9 % (20-55); Macrocytosis 1+; Segmented Neutrophils 83 % (50-85); Total Cells Counted 100
[2016-12-07] MEDS: SEVELAMER CARBONATE 800 MG TABLET PO SCH ×2 (09:11→16:58)
[2016-12-07] MEDS: MULTIVITAMIN (CENTRUM) TABLET PO SCH (09:11)
[2016-12-07] MEDS: BISOPROLOL 5 MG TABLET PO SCH (09:11)
[2016-12-07] MEDS: metOLazone 2.5 MG TABLET PO SCH (09:12)
[2016-12-07] MEDS: ASCORBIC ACID 500 MG TABLET PO SCH (09:12)
[2016-12-07] MEDS: FOLIC ACID 1 MG TABLET PO SCH (09:12)
[2016-12-07] MEDS: ALLOPURINOL 100 MG TABLET PO SCH (09:12)
[2016-12-07] MEDS: PANTOPRAZOLE 40 MG TABLET PO SCH (09:12)
[2016-12-07] MEDS: ASPIRIN EC 81 MG TABLET PO SCH (09:13)
[2016-12-07] MEDS: INSULIN REGULAR 100 UNIT/ML SUBCUT SCH ×4 (09:13→21:20)
[2016-12-07] MEDS: GABAPENTIN 100 MG CAPSULE PO SCH (09:13)
[2016-12-07] MEDS: DESITIN 4OZ/NYSTATIN 15 GRAM MIXTURE PASTE TOP SCH ×2 (09:17→21:18)
[2016-12-07] MEDS ORDERED: GLUCAGON 1 MG VIAL IM PRN (09:21)
[2016-12-07] MEDS: LIDOCAINE 5% PATCH TRANSDERM SCH (09:27)
--- NOTE | 2016-12-07 10:16 | Nephrology Progress Note ---
Nephrology - PN: Subj Interval history: Ms. Hernandez is seen in follow-up of her end-stage renal disease. She underwent dialysis catheter removal yesterday and tolerated that well. Her dressing over the exit site is dry. She is having no pain from the procedure. She is feeling well. Plan is to continue antibiotic therapy and approach dialysis access after she has had a time without any foreign body in place. Exam (PN)-Nephrology - Vital Signs Vital signs: Period Temp Pulse Resp BP Sys/Handley Pulse Ox Last 24 Hr 97.2 F-98 F 82-118 16-20 96-148/38-77 95-100 - Lab 12/07/16 08:00 12/07/16 06:59 Most recent lab results Calcium 7.7 MG/DL (8.5-10.1) L 12/07/16 06:59 Magnesium 2.0 MG/DL (1.8-2.4) 12/04/16 06:50
[2016-12-07] MEDS: DOCUSATE SODIUM 100 MG CAPSULE PO SCH ×2 (11:28→21:18)
[2016-12-07] MEDS: CINACALCET 30 MG TABLET PO SCH (16:58)
[2016-12-07] MEDS: SIMVASTATIN 20 MG TABLET PO SCH (21:21)
[2016-12-07] MEDS: MORPHINE 2 MG/1 ML SYRINGE IV PRN (22:50)
--- NOTE | 2016-12-08 04:38 | Event Note ---
Catheter tip is growing gram-positive cocci. The patient will need new dialysis access tomorrow with a new catheter. I will see if Dr. Diallo can do it tomorrow. I will be out tomorrow. Dr. Diallo had placed her previous catheter it appears.
[2016-12-08] MEDS: INSULIN GLARGINE 100 UNIT/ML SUBCUT SCH ×2 (06:22→16:06)
[2016-12-08] MEDS: tiZANidine 4 MG TABLET PO SCH ×4 (06:23→22:00)
[2016-12-08] MEDS: SODIUM CHLORIDE 0.9% 1,000 ML IV SCH ×2 (06:23→20:51)
--- NOTE | 2016-12-08 08:50 | Family Practice Progress Note ---
Family Practice - PN: Subj Interval history: Patient states doing fairly well this morning but tells me both her feet are hurting her. Patient states she feels like the soles of her feet have been cut. She denies any trauma or injury to the area and does not recall any prior pain such as this. Patient's tolerating IV antibiotic therapy. I told she may have neuropathic pain is under certainly nothing visible on her feet that could cause her discomfort. Exam (Progress Note) - Constitutional Vitals: Period Temp Pulse Resp BP Sys/Handley Pulse Ox Last 24 Hr 97.1 F-99.3 F 82-97 18-20 128-143/52-94 97-99 Exam: Objective reveals well-developed black female in no acute distress. Is complaining of bilateral foot pain.. Cardiovascular: Heart rates regular without murmurs or gallops. Respiratory: Lungs clear to auscultation bilaterally. Abdomen: Abdomen soft and nontender to palpation. Extremities: Patient has no tenderness, erythema, swelling to either foot. Results - Labs CBC & BMP: 12/07/16 08:00 12/07/16 06:59 Lab Results: I have reviewed the past 24 hour labs Assessment and Plan (1) Infection of hemodialysis catheter Status: Acute Assessment and plan: 12/06/2016: Patient's catheter is to be replaced. 5 08/20/2016: Patient had tunnel catheter removed yesterday. 12/08/2016: We will continue present IV antibiotic therapy. Current Visit: Yes (2) MRSA (methicillin resistant Staphylococcus aureus) septicemia Status: Acute Assessment and plan: 12/06/2016: Patient is improving on IV vancomycin. 11/29/2016: Patient is receiving vancomycin. Current Visit: Yes
[2016-12-08] MEDS: ASCORBIC ACID 500 MG TABLET PO SCH (09:13)
[2016-12-08] MEDS: DOCUSATE SODIUM 100 MG CAPSULE PO SCH ×2 (09:13→20:51)
[2016-12-08] MEDS: GABAPENTIN 100 MG CAPSULE PO SCH (09:13)
[2016-12-08] MEDS: PANTOPRAZOLE 40 MG TABLET PO SCH (09:13)
[2016-12-08] MEDS: INSULIN REGULAR 100 UNIT/ML SUBCUT SCH ×4 (09:13→21:58)
[2016-12-08] MEDS: BISOPROLOL 5 MG TABLET PO SCH (09:13)
[2016-12-08] MEDS: FOLIC ACID 1 MG TABLET PO SCH (09:13)
[2016-12-08] MEDS: metOLazone 2.5 MG TABLET PO SCH (09:14)
[2016-12-08] MEDS: ALLOPURINOL 100 MG TABLET PO SCH (09:14)
[2016-12-08] MEDS: MULTIVITAMIN (CENTRUM) TABLET PO SCH (09:14)
[2016-12-08] MEDS: ASPIRIN EC 81 MG TABLET PO SCH (09:14)
[2016-12-08] MEDS: SEVELAMER CARBONATE 800 MG TABLET PO SCH ×2 (09:14→16:42)
[2016-12-08] MEDS: LIDOCAINE 5% PATCH TRANSDERM SCH (09:14)
[2016-12-08] MEDS: DESITIN 4OZ/NYSTATIN 15 GRAM MIXTURE PASTE TOP SCH ×2 (09:34→20:52)
--- NOTE | 2016-12-08 13:04 | Nephrology Progress Note ---
Nephrology - PN: Subj Interval history: Ms. Hernandez is seen in follow-up of her end-stage renal disease. The dialysis catheter is been removed and she has been afebrile. She continues to receive antibiotic therapy for MRSA bacteremia. She is without complaint and there chest is clear. Her dressing over the right chest surgical site is dry. Exam (PN)-Nephrology - Vital Signs Vital signs: Period Temp Pulse Resp BP Sys/Handley Pulse Ox Last 24 Hr 97.1 F-99.3 F 73-97 16-20 101-140/52-94 97-99 - Lab 12/07/16 08:00 12/07/16 06:59 Most recent lab results Calcium 7.7 MG/DL (8.5-10.1) L 12/07/16 06:59 Magnesium 2.0 MG/DL (1.8-2.4) 12/04/16 06:50
[2016-12-08] MEDS: CINACALCET 30 MG TABLET PO SCH (16:42)
[2016-12-08] MEDS: SIMVASTATIN 20 MG TABLET PO SCH (20:52)
[2016-12-09] MEDS: INSULIN GLARGINE 100 UNIT/ML SUBCUT SCH ×2 (04:35→16:23)
[2016-12-09] MEDS: tiZANidine 4 MG TABLET PO SCH ×4 (04:35→23:26)
[2016-12-09] MEDS: INSULIN REGULAR 100 UNIT/ML SUBCUT SCH ×4 (07:41→20:37)
[2016-12-09] MEDS: ALLOPURINOL 100 MG TABLET PO SCH (07:42)
[2016-12-09] MEDS: ASPIRIN EC 81 MG TABLET PO SCH (07:42)
[2016-12-09] MEDS: FOLIC ACID 1 MG TABLET PO SCH (07:42)
[2016-12-09] MEDS: MULTIVITAMIN (CENTRUM) TABLET PO SCH (07:42)
[2016-12-09] MEDS: GABAPENTIN 100 MG CAPSULE PO SCH (07:43)
[2016-12-09] MEDS: ASCORBIC ACID 500 MG TABLET PO SCH (07:43)
[2016-12-09] MEDS: metOLazone 2.5 MG TABLET PO SCH (07:43)
[2016-12-09] MEDS: SEVELAMER CARBONATE 800 MG TABLET PO SCH ×2 (07:43→16:33)
[2016-12-09] MEDS: LIDOCAINE 5% PATCH TRANSDERM SCH (07:44)
[2016-12-09] MEDS: SODIUM CHLORIDE 0.9% 250 ML IV SCH (07:53)
--- NOTE | 2016-12-09 07:54 | Family Practice Progress Note ---
Family Practice - PN: Subj Interval history: Patient seems to slowly be improving. Patient was admitted with chills fever found to have MRSA sepsis. Presently receiving vancomycin. Scheduled for dialysis this a.m. Tolerating medication well. No new problems identified. Will infectious disease to determine how long they want to remain on vancomycin. Physical exam is stable otherwise we will continue present treatment plan Exam (Progress Note) - Constitutional Vitals: Period Temp Pulse Resp BP Sys/Handley Pulse Ox Last 24 Hr 97.9 F-98.9 F 76-90 18-20 111-141/51-70 92-97 Results - Labs CBC & BMP: 12/07/16 08:00 12/07/16 06:59 Assessment and Plan (1) UTI (lower urinary tract infection) Status: Acute Assessment and plan: Patient has had fever altered mental state. Will obtain culture and started on appropriate antibiotic Current Visit: No (2) Altered mental status Status: Acute Assessment and plan: Patient has had confusion over the last several days prior to admission Current Visit: Yes (3) ESRD (end stage renal disease) Status: Chronic Assessment and plan: Patient is receiving dialysis followed by Dr. Schwartz Current Visit: Yes (4) Anemia in chronic kidney disease Status: Chronic Assessment and plan: Stable at present Current Visit: Yes (5) Diabetes mellitus Status: Chronic Assessment and plan: We will start on sliding scale and monitor closely Current Visit: No (6) Essential hypertension Status: Chronic Assessment and plan: Adequately controlled at present Current Visit: No (7) History of coronary artery stent placement Status: Chronic Current Visit: No (8) Right hemiparesis Status: Chronic Assessment and plan: Stable at present Current Visit: No (9) chronic lymphedema both lower ext. Status: Chronic Assessment and plan: Stable at present we will elevate legs Current Visit: No Quality Measures - VTE Contraindication to Pharmacological VTE Prophylaxis: High Risk of Bleeding
--- NOTE | 2016-12-09 09:03 | Event Note ---
Patient was suspected catheter-related bacteremia. The catheters been removed approximately 3 days ago. She needs a new catheter for hemodialysis. White blood cell count still elevated. Plan for temporary catheter today. Once her bacteremia clears will plan for replacement of a tunneled hemodialysis catheter. I discussed the procedure and the risk with the patient. Risk of the procedure including bleeding, infection, damage to surrounding structures, need for further surgery were all discussed in detail and she had like to proceed.
[2016-12-09] MEDS: PANTOPRAZOLE 40 MG TABLET PO SCH (09:21)
[2016-12-09] MEDS: DESITIN 4OZ/NYSTATIN 15 GRAM MIXTURE PASTE TOP SCH ×2 (09:21→20:38)
[2016-12-09] MEDS: DOCUSATE SODIUM 100 MG CAPSULE PO SCH ×2 (09:21→20:37)
[2016-12-09] MEDS: BISOPROLOL 5 MG TABLET PO SCH (09:22)
[2016-12-09] MEDS ORDERED: PROPOFOL 200 MG/20 ML VIAL IV ONE (10:29)
[2016-12-09] MEDS ORDERED: KETAMINE 500 MG/10 ML VIAL ONE (10:29)
[2016-12-09] MEDS ORDERED: MIDAZOLAM 2 MG/2 ML VIAL ONE (10:31)
[2016-12-09] MEDS ORDERED: fentaNYL 100 MCG/2 ML VIAL ONE (10:31)
--- NOTE | 2016-12-09 10:49 | Anesthesia Post-Op ---
Anesthesia Post OP - Post Ansesthetic Evaluation Patient seen in post op: Yes Resp: within normal limits CV: within normal limits Mental: within normal limits Temp: within normal limits Sqln-[id number]: within normal limits Nausea and Vomiting: within normal limits Pain: within normal limits
--- NOTE | 2016-12-09 11:03 | XRay Report ---
XR chest 1V portable Indication: Dialysis catheter placement Comparison: Chest x-ray dated December 04, 2016 Technique: Single frontal view of the chest. Findings: Left-sided central venous catheter tip projects over the atriocaval junction. Heart remains mildly prominent. The cardiomediastinal silhouette is stable in configuration. Mildly improved left pleural effusion with small amount remaining. Visualized osseous and surrounding soft tissue structures appear grossly unchanged. Severe degenerative change of the right glenohumeral joint. IMPRESSION: As above. PROCEDURE INTERPRETED AT [facility] DEPARTMENT OF RADIOLOGY Final Report Signed by: Dr Tyrese Hogan
--- NOTE | 2016-12-09 12:01 | Nephrology Progress Note ---
Nephrology - PN: Subj Interval history: Infected dialysis catheter was removed Thursday after dialysis. New temporary catheter was placed today. She has been on vancomycin since admission. She is awake and alert. She denies shortness of breath or GI symptoms Exam (PN)-Nephrology - Vital Signs Vital signs: Period Temp Pulse Resp BP Sys/Handley Pulse Ox Last 24 Hr 97.1 F-98.9 F 76-91 18-21 111-159/51-70 92-100 Exam: ENT: Normal Cardiovascular: Regular rate and rhythm. No murmur rub or gallop Lungs: Clear Extremities: Trace edema - Lab 12/07/16 08:00 12/07/16 06:59 Most recent lab results Calcium 7.7 MG/DL (8.5-10.1) L 12/07/16 06:59 Magnesium 2.0 MG/DL (1.8-2.4) 12/04/16 06:50 Assessment and Plan (1) ESRD (end stage renal disease) Status: Chronic Assessment and plan: 75-year-old woman admitted with: * Bacteremia. MRSA. Continue vancomycin. New dialysis catheter placed * UTI. Treated * ESRD. Dialysis TTS * Diabetes mellitus * CAD * Cerebrovascular disease. Prior CVA Current Visit: Yes (2) Altered mental status Status: Acute Current Visit: Yes (3) Leukocytosis Status: Acute Current Visit: Yes (4) Sepsis Status: Acute Current Visit: Yes (5) UTI (lower urinary tract infection) Status: Acute Current Visit: No (6) Cerebrovascular disease Status: Chronic Current Visit: No (7) Coronary disease Status: Chronic Current Visit: No (8) Diabetes mellitus Status: Chronic Current Visit: No
--- NOTE | 2016-12-09 12:28 | Pathology Report from [facility] ---
[facility] ACCESSION # : [id number] PATIENT NAME : Humberto Hernandez ORDERING DR : KRISTIN KEYES III, MD CLINICAL HX: No longer needed catheter POST-OP DX: Same SPECIMEN INFO: Old catheter GROSS DESCRIPTION: Received fresh labeled HUMBERTO HERNANDEZ is a dialysis catheter, submitted for gross exam only. DIAGNOSIS FOR HUMBERTO HERNANDEZ: Dialysis catheter, gross only. COLLECTED DATE: 12/07/2016 [facility] REPORT DATE: 12/09/2016 ELECTRONICALLY SIGNED BY: Minnie Fallon M.D. 12/09/2016 - 10:30:28 [facility]
--- NOTE | 2016-12-09 12:51 | Operative Note ---
Date of procedure: 12/09/16 Pre-op diagnosis: ESRD Post-op diagnosis: same Procedure: Procedure performed: #1 placement of left internal jugular non-tunneled hemodialysis catheter #2 ultrasound-guided venous access #3 supervision and interpretation fluoroscopy Procedure in detail: After informed consent was obtained patient was taken operating suite and placed supine on the operating table. After monitored anesthesia was induced bilateral neck and chest were prepped and draped in usual sterile fashion. After procedural pause ultrasound brought after a sterile sleeve covering ultrasound the left neck revealed a patent and compressible left internal jugular vein. Left internal jugular vein was then accessed using an 18-gauge Seldinger needle under ultrasound guidance on the first attempt. There is return of nonpulsatile dark red blood. Guidewire inserted without resistance. Fluoroscopy demonstrated guidewire be coursing in appropriate position. The tract was dilated and an non-cuffed hemodialysis catheter was placed over the guidewire using Seldinger technique. Fluoroscopy demonstrated the catheter tip to be in appropriate position. The catheter withdrew and flushed easily was locked with saline and secured in place with 2- 0 nylon suture. Dressings applied and the patient tolerated procedure well and was taken recovery room in stable condition. All lap and needle counts correct at the end of the case. Anesthesia: MAC, local Surgeon / Physician: Devante Lawrence Estimated blood loss: other (Less than 10 cc) Specimens: none sent Condition: stable Disposition: PACU Results - Labs CBC & BMP: 12/07/16 08:00 12/07/16 06:59 Discharge Plan - Discharge Medications No Action Ondansetron Odt Tab [Zofran Odt] 4 mg PO DIRECTED Cinacalcet [Sensipar] 30 mg PO DAILY W/SUPPER Insulin Glargine [Lantus] 22 unit SUBCUT BID@0500,1600 Allopurinol [Zyloprim] 100 mg PO 0800 HYDROcodone/ACETAMIN 7.5-325 [Gary 7.5-325] 1 tablet PO DIRECTED Nitroglycerin Sl Tab [Nitrostat] 0.4 mg SL Q5M PRN PRN Reason: Chest Pain metOLazone [Zaroxolyn] 2.5 mg PO 0800 Folic Acid Tab 1 mg PO 0800 Multivitamin [Multivitamins] 1 each PO 0800 Tizanidine HCl [Zanaflex] 2 mg PO Q6H Sevelamer Carbonate Tab [Renvela Tab] 1,600 mg PO BID W/MEALS Insulin Lispro [HumaLOG] See Protocol SUBCUT ACHS Acetaminophen Tab [Tylenol Tab] 500 mg PO Q6H PRN MDD 3GM/24H PRN Reason: Fever, Headache, Mild Pain Bisoprolol Fumarate [Zebeta] 10 mg PO DAILY Gabapentin Cap/Tab [Neurontin Cap/Tab] 200 mg PO 0800 Aspirin [Ecotrin] 81 mg PO 0800 Simvastatin 20 mg PO BEDTIME Ascorbic Acid [Vitamin C] 1,000 mg PO 0800 NIFEdipine [Nifedipine ER] 60 mg PO 0800 Omeprazole [Prilosec] 20 mg PO DAILY - Follow Up or Referral - Forms/Instructions
[2016-12-09] MEDS: SODIUM CHLORIDE 0.9% 1,000 ML IV SCH (16:22)
--- NOTE | 2016-12-09 16:33 | Infectious Disease Progress ---
Assessment and Plan (1) MRSA (methicillin resistant Staphylococcus aureus) septicemia Status: Acute Assessment and plan: Suspect the source of the septicemia is her hemodialysis catheter. TTE negative for endocarditis. Recommendations: 1. Continue vancomycin 2. Repeat blood cultures today Current Visit: Yes (2) Altered mental status Status: Acute Assessment and plan: Most likely due to her septicemia, seems improved. Current Visit: Yes (3) ESRD (end stage renal disease) Status: Chronic Current Visit: Yes (4) Cerebrovascular disease Status: Chronic Current Visit: No (5) Diabetes mellitus Status: Chronic Current Visit: No (6) Essential hypertension Status: Chronic Current Visit: No Infectious Disease - PN: Subj Interval history: Ms. Hernandez was seen on dialysis this afternoon. She had no specific complaints. Events over the weekend noted - she had her dialysis catheter removed on Thursday and a new one was placed today, a temporary catheter. She has not had any fever. Infectious Disease Exam (PN) - Constitutional Vitals: Temp Pulse Resp BP Pulse Ox 97.6 F 90 19 141/63 98 12/09/16 11:01 12/09/16 11:25 12/09/16 11:25 12/09/16 11:25 12/09/16 11:25 General appearance: mild distress Exam: General appearance: no acute distress, a little more alert than last week - Eye Eye exam: Present: EOMI. no icterus Pupils: Present: LIV - ENT ENT exam: no oral exudates but mouth very dry - Respiratory Respiratory exam: vesicular BS, no crepitations or wheezes - Cardiovascular Cardiovascular exam: regular rate and rhythm, no murmurs - GI/Abdominal GI/Abdominal exam: normal bowel sounds, soft, non-tender, no organomegaly or mass - Extremities Exam Extremities exam: Mild bilateral lower extremity edema - Skin Skin exam: No rash Results - Labs CBC & BMP: 12/07/16 08:00 12/07/16 06:59 Lab Results: I have reviewed the past 24 hour labs (Repeat blood cultures on the 26 still positive for MRSA) Quality Measures - VTE Contraindication to Pharmacological VTE Prophylaxis: High Risk of Bleeding
[2016-12-09] MEDS: CINACALCET 30 MG TABLET PO SCH (16:34)
[2016-12-09] MEDS ORDERED: VANCOMYCIN INJ 1,500 MG in SODIUM CHLORIDE 0.9% 500 ML IV ONE (18:00)
[2016-12-09] MEDS: SIMVASTATIN 20 MG TABLET PO SCH (20:38)
[2016-12-10 04:23] LABS: Basophils % 0.2 % (0.0-0.8); Eosinophils # 0.3 10*3/uL (0.0-0.87); Eosinophils % 2.8 % (0.00-10.9); Hematocrit 22.4 VOL% (35.7-47.0); Hemoglobin 6.6 GM/DL (12.0-16.0); Immature Granulocytes % 4.1 %; Lymphocytes # 1.9 10*3/uL (1.4-4.0); Lymphocytes % 19.7 % (21.3-54.2); Mean Corpuscular HGB Conc 29.5 GM/DL (32-36); Mean Corpuscular Hemoglobin 30 PG (27-34); Mean Corpuscular Volume 101.4 FL (87-102); Mean Platelet Volume 10.5 FL (9.6-12.0); Monocytes # 1.4 10*3/uL (0.11-0.8); Monocytes % 14.3 % (1.7-12.7); Neutrophils # 5.7 10*3/uL (1.4-7.4); Neutrophils % 58.9 % (38.7-73.9); Platelet Count 271 T/CUMM (130-400); Red Blood Count 2.21 MC/CUMM (3.8-5.5); White Blood Count 9.7 T/CUMM (4-12)
[2016-12-10 05:01] LABS: Albumin 1.6 G/DL (3.4-5.0); Bilirubin,Total 0.4 MG/DL (0.2-1.0); Calcium 7.9 MG/DL (8.5-10.1); Osmolality,Calculated 277.8 MOS/KG (273-304); Potassium 4.4 MMOL/L (3.5-5.1); Total Protein 5.8 G/DL (6.4-8.3)
[2016-12-10] MEDS: INSULIN GLARGINE 100 UNIT/ML SUBCUT SCH ×2 (05:08→17:02)
[2016-12-10] MEDS: tiZANidine 4 MG TABLET PO SCH ×4 (05:09→23:50)
--- NOTE | 2016-12-10 08:20 | Family Practice Progress Note ---
Family Practice - PN: Subj Interval history: Patient states she is doing fairly well since removal of her infected catheter. She has a new catheter in the left internal jugular vein placed per Dr. Devante Diallo. Dr. Schwartz is seeing her and will schedule her next dialysis. Patient states she just feels bad all over. All of her blood cultures are positive for MRSA which she is on vancomycin. Exam (Progress Note) - Constitutional Vitals: Period Temp Pulse Resp BP Sys/Handley Pulse Ox Last 24 Hr 97 F-98.5 F 81-97 18-21 106-159/43-70 92-100 Exam: Objective reveals well-developed black female in no acute distress. She is complaining of hurting all over this morning. Both her feet are still hurting her. Cardiovascular: Heart rates regular without murmurs or gallops. Respiratory: Lungs clear to auscultation bilaterally. Abdomen: Abdomen soft and nontender to palpation. Extremities: Patient has no tenderness, erythema, swelling to either foot. Results - Labs CBC & BMP: 12/10/16 03:28 12/10/16 03:28 Lab Results: I have reviewed the past 24 hour labs Assessment and Plan (1) Infection of hemodialysis catheter Status: Acute Assessment and plan: 12/06/2016: Patient's catheter is to be replaced. 5 08/20/2016: Patient had tunnel catheter removed yesterday. 12/08/2016: We will continue present IV antibiotic therapy. 12/10/2016: Patient is doing well this morning. Current Visit: Yes (2) MRSA (methicillin resistant Staphylococcus aureus) septicemia Status: Acute Assessment and plan: 12/06/2016: Patient is improving on IV vancomycin. 12/09/2016: Patient is receiving vancomycin. 12/10/2016: Patient's on IV vancomycin. Current Visit: Yes Quality Measures - VTE Contraindication to Pharmacological VTE Prophylaxis: High Risk of Bleeding
[2016-12-10] MEDS: INSULIN REGULAR 100 UNIT/ML SUBCUT SCH ×4 (08:38→21:17)
[2016-12-10] MEDS: LIDOCAINE 5% PATCH TRANSDERM SCH (08:38)
[2016-12-10] MEDS: MULTIVITAMIN (CENTRUM) TABLET PO SCH (08:39)
[2016-12-10] MEDS: PANTOPRAZOLE 40 MG TABLET PO SCH (08:39)
[2016-12-10] MEDS: SEVELAMER CARBONATE 800 MG TABLET PO SCH ×2 (08:39→17:02)
[2016-12-10] MEDS: ASPIRIN EC 81 MG TABLET PO SCH (08:39)
[2016-12-10] MEDS: GABAPENTIN 100 MG CAPSULE PO SCH (08:39)
[2016-12-10] MEDS: metOLazone 2.5 MG TABLET PO SCH (08:39)
[2016-12-10] MEDS: FOLIC ACID 1 MG TABLET PO SCH (08:39)
[2016-12-10] MEDS: ASCORBIC ACID 500 MG TABLET PO SCH (08:40)
[2016-12-10] MEDS: ALLOPURINOL 100 MG TABLET PO SCH (08:40)
[2016-12-10] MEDS: DOCUSATE SODIUM 100 MG CAPSULE PO SCH ×2 (09:02→21:17)
[2016-12-10] MEDS: BISOPROLOL 5 MG TABLET PO SCH (09:02)
[2016-12-10] MEDS: DESITIN 4OZ/NYSTATIN 15 GRAM MIXTURE PASTE TOP SCH ×2 (09:02→21:15)
[2016-12-10] MEDS: SODIUM CHLORIDE 0.9% 250 ML IV SCH ×3 (10:37→23:09)
--- NOTE | 2016-12-10 11:49 | Infectious Disease Progress ---
Assessment and Plan (1) MRSA (methicillin resistant Staphylococcus aureus) septicemia Status: Acute Assessment and plan: Source of the septicemia was her hemodialysis catheter which has been removed. TTE negative for endocarditis. Recommendations: 1. Continue vancomycin; aim for trough level of 20-25 2. Follow-up results of repeat blood cultures Current Visit: Yes (2) Altered mental status Status: Acute Assessment and plan: Most likely due to her septicemia, improving daily. Current Visit: Yes (3) ESRD (end stage renal disease) Status: Chronic Current Visit: Yes (4) Cerebrovascular disease Status: Chronic Current Visit: No (5) Diabetes mellitus Status: Chronic Current Visit: No (6) Essential hypertension Status: Chronic Current Visit: No Infectious Disease - PN: Subj Interval history: Patient is more verbal today and indicates that she is feeling better. Grandson at bedside says she is doing better overall. The patient has not had any fever. She is not eating a bit. Infectious Disease Exam (PN) - Constitutional Vitals: Temp Pulse Resp BP Pulse Ox 97.9 F 83 18 145/56 94 L 12/10/16 11:38 12/10/16 11:38 12/10/16 11:38 12/10/16 11:38 12/10/16 11:38 General appearance: mild distress Exam: General appearance: no acute distress, greeted me when I went into the room - Eye Eye exam: Present: EOMI. no icterus Pupils: Present: LIV - ENT ENT exam: no oral exudates - Respiratory Respiratory exam: vesicular BS, no crepitations or wheezes - Cardiovascular Cardiovascular exam: regular rate and rhythm, no murmurs - GI/Abdominal GI/Abdominal exam: normal bowel sounds, soft, non-tender, no organomegaly or mass - Extremities Exam Extremities exam: Mild bilateral lower extremity edema - Skin Skin exam: No rash Results - Labs CBC & BMP: 12/10/16 03:28 12/10/16 03:28 Lab Results: I have reviewed the past 24 hour labs (Repeat blood cultures pending; HD catheter tip cultured positive for MRSA and ESBL E. coli) Quality Measures - VTE Contraindication to Pharmacological VTE Prophylaxis: High Risk of Bleeding
[2016-12-10] MEDS: ACETAMINOPHEN 325 MG TABLET PO PRN (14:11)
[2016-12-10] MEDS: CINACALCET 30 MG TABLET PO SCH (17:03)
--- NOTE | 2016-12-10 19:23 | Nephrology Progress Note ---
Nephrology - PN: Subj Interval history: Awake and alert. No shortness of breath or GI symptoms Exam (PN)-Nephrology - Vital Signs Vital signs: Period Temp Pulse Resp BP Sys/Handley Pulse Ox Last 24 Hr 97 F-98.5 F 62-89 18-20 106-145/51-70 94-99 Exam: ENT: Normal Cardiovascular: Regular rate and rhythm. No murmur rub or gallop Lungs: Clear Extremities: Trace edema - Lab 12/10/16 03:28 12/10/16 03:28 Most recent lab results Calcium 7.9 MG/DL (8.5-10.1) L 12/10/16 03:28 Magnesium 2.0 MG/DL (1.8-2.4) 12/04/16 06:50 Assessment and Plan (1) ESRD (end stage renal disease) Status: Chronic Assessment and plan: 75-year-old woman admitted with: * Bacteremia. MRSA. Continue vancomycin. * UTI. Treated * ESRD. Dialysis TTS * Diabetes mellitus * CAD * Cerebrovascular disease. Prior CVA Current Visit: Yes (2) Altered mental status Status: Acute Current Visit: Yes (3) Leukocytosis Status: Acute Current Visit: Yes (4) Sepsis Status: Acute Current Visit: Yes (5) UTI (lower urinary tract infection) Status: Acute Current Visit: No (6) Cerebrovascular disease Status: Chronic Current Visit: No (7) Coronary disease Status: Chronic Current Visit: No (8) Diabetes mellitus Status: Chronic Current Visit: No
[2016-12-10] MEDS: SIMVASTATIN 20 MG TABLET PO SCH (21:15)
[2016-12-11] MEDS: SODIUM CHLORIDE 0.9% 1,000 ML IV SCH (04:38)
[2016-12-11] MEDS: INSULIN GLARGINE 100 UNIT/ML SUBCUT SCH ×2 (04:39→15:49)
[2016-12-11] MEDS: tiZANidine 4 MG TABLET PO SCH ×4 (04:45→23:49)
[2016-12-11 05:17] LABS: Basophils % 0.2 % (0.0-0.8); Eosinophils # 0.4 10*3/uL (0.0-0.87); Eosinophils % 3.8 % (0.00-10.9); Hematocrit 24.2 VOL% (35.7-47.0); Hemoglobin 7.2 GM/DL (12.0-16.0); Immature Granulocytes % 3.7 %; Immature Granulocytes Absolute 0.39 #; Lymphocytes # 1.7 10*3/uL (1.4-4.0); Lymphocytes % 15.8 % (21.3-54.2); Mean Corpuscular HGB Conc 29.8 GM/DL (32-36); Mean Corpuscular Hemoglobin 30 PG (27-34); Mean Corpuscular Volume 100.4 FL (87-102); Mean Platelet Volume 9.9 FL (9.6-12.0); Monocytes # 1.1 10*3/uL (0.11-0.8); Monocytes % 10.6 % (1.7-12.7); Neutrophils % 65.9 % (38.7-73.9); Platelet Count 325 T/CUMM (130-400); Red Blood Count 2.41 MC/CUMM (3.8-5.5); Red Cell Distribution Width 18.4 % (9.3-17.3); White Blood Count 10.6 T/CUMM (4-12)
--- NOTE | 2016-12-11 07:59 | Family Practice Progress Note ---
Family Practice - PN: Subj Interval history: Patient states she is feeling better this morning. She denies any chest pain or shortness of breath this morning. Patient states her appetite has improved. I think she can probably go back to the shelter and continue dialysis and IV vancomycin. Think she can be discharged from Dr. Schwartz agrees. Exam (Progress Note) - Constitutional Vitals: Period Temp Pulse Resp BP Sys/Handley Pulse Ox Last 24 Hr 96.0 F-98.4 F 62-98 18-20 106-145/52-68 94-100 Exam: Objective reveals well-developed black female in no acute distress. She is feeling much better this morning. Cardiovascular: Heart rates regular without murmurs or gallops. Respiratory: Lungs clear to auscultation bilaterally. Abdomen: Abdomen soft and nontender to palpation. Extremities: Patient has no calf swelling or tenderness. Results - Labs CBC & BMP: 12/11/16 04:49 12/10/16 03:28 Lab Results: I have reviewed the past 24 hour labs Assessment and Plan (1) Infection of hemodialysis catheter Status: Acute Assessment and plan: 12/06/2016: Patient's catheter is to be replaced. 5 08/20/2016: Patient had tunnel catheter removed yesterday. 12/08/2016: We will continue present IV antibiotic therapy. 12/10/2016: Patient is doing well this morning. 12/11/2016: Patient's feeling much better this morning. Current Visit: Yes (2) MRSA (methicillin resistant Staphylococcus aureus) septicemia Status: Acute Assessment and plan: 12/06/2016: Patient is improving on IV vancomycin. 12/09/2016: Patient is receiving vancomycin. 12/10/2016: Patient's on IV vancomycin. 12/11/2016: Patient will receive vancomycin after each dialysis Current Visit: Yes Quality Measures - VTE Contraindication to Pharmacological VTE Prophylaxis: High Risk of Bleeding
[2016-12-11] MEDS: INSULIN REGULAR 100 UNIT/ML SUBCUT SCH ×4 (08:07→20:52)
[2016-12-11] MEDS: ACETAMINOPHEN 325 MG TABLET PO PRN ×2 (08:22→15:28)
[2016-12-11] MEDS: BISOPROLOL 5 MG TABLET PO SCH (08:23)
[2016-12-11] MEDS ORDERED: VANCOMYCIN INJ 750 MG in SODIUM CHLORIDE 0.9% 250 ML IV PRN (08:30)
[2016-12-11] MEDS: metOLazone 2.5 MG TABLET PO SCH (09:17)
[2016-12-11] MEDS: ASPIRIN EC 81 MG TABLET PO SCH (09:17)
[2016-12-11] MEDS: GABAPENTIN 100 MG CAPSULE PO SCH (09:17)
[2016-12-11] MEDS: MULTIVITAMIN (CENTRUM) TABLET PO SCH (09:17)
[2016-12-11] MEDS: FOLIC ACID 1 MG TABLET PO SCH (09:17)
[2016-12-11] MEDS: SEVELAMER CARBONATE 800 MG TABLET PO SCH ×2 (09:17→18:04)
[2016-12-11] MEDS: ASCORBIC ACID 500 MG TABLET PO SCH (09:17)
[2016-12-11] MEDS: ALLOPURINOL 100 MG TABLET PO SCH (09:17)
[2016-12-11] MEDS: PANTOPRAZOLE 40 MG TABLET PO SCH (09:18)
[2016-12-11] MEDS: DESITIN 4OZ/NYSTATIN 15 GRAM MIXTURE PASTE TOP SCH ×2 (09:18→20:51)
[2016-12-11] MEDS: DOCUSATE SODIUM 100 MG CAPSULE PO SCH ×2 (09:18→22:42)
[2016-12-11] MEDS: LIDOCAINE 5% PATCH TRANSDERM SCH ×2 (09:19→18:41)
--- NOTE | 2016-12-11 13:20 | Nephrology Progress Note ---
Nephrology - PN: Subj Interval history: She feels better overall today. She remains afebrile. Exam (PN)-Nephrology - Vital Signs Vital signs: Period Temp Pulse Resp BP Sys/Handley Pulse Ox Last 24 Hr 96.0 F-99.0 F 62-98 18-20 115-166/52-74 95-100 Exam: ENT: Normal Cardiovascular: Regular rate and rhythm. No murmur rub or gallop Lungs: Clear Extremities: No edema - Lab 12/11/16 04:49 12/10/16 03:28 Most recent lab results Calcium 7.9 MG/DL (8.5-10.1) L 12/10/16 03:28 Magnesium 2.0 MG/DL (1.8-2.4) 12/04/16 06:50 Assessment and Plan (1) ESRD (end stage renal disease) Status: Chronic Assessment and plan: 75-year-old woman admitted with: * Bacteremia. MRSA. Continue vancomycin. * UTI. Treated * ESRD. Dialysis TTS. She is scheduled for dialysis today. She is stable for discharge after that from my standpoint. Vancomycin will be continued in the outpatient dialysis unit * Diabetes mellitus * CAD * Cerebrovascular disease. Prior CVA Current Visit: Yes (2) Altered mental status Status: Acute Current Visit: Yes (3) Leukocytosis Status: Acute Current Visit: Yes (4) Sepsis Status: Acute Current Visit: Yes (5) UTI (lower urinary tract infection) Status: Acute Current Visit: No (6) Cerebrovascular disease Status: Chronic Current Visit: No (7) Coronary disease Status: Chronic Current Visit: No (8) Diabetes mellitus Status: Chronic Current Visit: No
--- NOTE | 2016-12-11 13:45 | Discharge Summary ---
Hospital Course - Hospital Course Hospital Course: Patient 76-year-old black female admitted with fever and chills and found to have MRSA sepsis. This is felt to be due to an infected dialysis catheter which was removed. Patient is presently on IV vancomycin that she is receiving after each dialysis. She is to get dialysis today will be discharged later today or first thing in the morning. Diagnosis - Discharge Diagnosis (1) Infection of hemodialysis catheter Status: Acute (2) MRSA (methicillin resistant Staphylococcus aureus) septicemia Status: Acute Discharge Plan - Discharge Data Disposition: Disch/Xfer to Condition at Discharge: Stable Discharge Diet: advance to your usual diet Activity: resume usual activities as tolerated, as per physical therapy Hygiene: no restrictions Weight Bearing at Discharge: full weight bearing Contact your physician if you experience:: fever over 101 - Discharge Medications New Lidocaine 5% Patch [Lidoderm 5% Patch] 1 patch TRANSDERM 0800 patch Acetaminophen Tab [Tylenol Tab] 650 mg PO Q6H PRN tablet PRN Reason: Fever > 100.4 Or Headache Continue Ondansetron Odt Tab [Zofran Odt] 4 mg PO DIRECTED Cinacalcet [Sensipar] 30 mg PO DAILY W/SUPPER Insulin Glargine [Lantus] 22 unit SUBCUT BID@0500,1600 Allopurinol [Zyloprim] 100 mg PO 0800 HYDROcodone/ACETAMIN 7.5-325 [[place] 7.5-325] 1 tablet PO DIRECTED Nitroglycerin Sl Tab [Nitrostat] 0.4 mg SL Q5M PRN PRN Reason: Chest Pain metOLazone [Zaroxolyn] 2.5 mg PO 0800 Folic Acid Tab 1 mg PO 0800 Multivitamin [Multivitamins] 1 each PO 0800 Tizanidine HCl [Zanaflex] 2 mg PO Q6H Sevelamer Carbonate Tab [Renvela Tab] 1,600 mg PO BID W/MEALS Insulin Lispro [HumaLOG] See Protocol SUBCUT ACHS Acetaminophen Tab [Tylenol Tab] 500 mg PO Q6H PRN MDD 3GM/24H PRN Reason: Fever, Headache, Mild Pain Bisoprolol Fumarate [Zebeta] 10 mg PO DAILY Gabapentin Cap/Tab [Neurontin Cap/Tab] 200 mg PO 0800 Aspirin [Ecotrin] 81 mg PO 0800 Simvastatin 20 mg PO BEDTIME Ascorbic Acid [Vitamin C] 1,000 mg PO 0800 NIFEdipine [Nifedipine ER] 60 mg PO 0800 Omeprazole [Prilosec] 20 mg PO DAILY - Follow Up or Referral - Forms/Instructions Exam - Constitutional Vitals: Period Temp Pulse Resp BP Sys/Handley Pulse Ox Last 24 Hr 96.0 F-99.0 F 62-98 18-20 115-166/52-74 95-100 Exam: Objective reveals well-developed black female in no acute distress. She is feeling much better this morning. Cardiovascular: Heart rates regular without murmurs or gallops. Respiratory: Lungs clear to auscultation bilaterally. Abdomen: Abdomen soft and nontender to palpation. Extremities: Patient has no calf swelling or tenderness. Discharge Results Procedures and tests throughout hospitalization: Pending Orders 12/04/16 04:00 Urinalysis 12/09/16 11:52 Blood Culture Stat Labs on day of discharge: Labs from last 24 hours 12/11/16 12/11/16 12/11/16 11:24 07:37 04:49 WBC RBC Hgb Hct MCV MCH MCHC RDW Plt Count MPV Neut % (Auto) Lymph % (Auto) Boundary % (Auto) Eos % (Auto) Baso % (Auto) Neut # (Auto) Lymph # (Auto) Boundary # (Auto) Eos # (Auto) Baso # (Auto) Immature Gran % Nucleated RBC % Immature Gran # Nucleated RBCs # POC Glucose 129 H 141 H Random Vancomycin 33.6 12/11/16 12/10/16 12/10/16 04:49 19:31 15:48 WBC 10.6 RBC 2.41 L Hgb 7.2 L Hct 24.2 L MCV 100.4 MCH 30 MCHC 29.8 L RDW 18.4 H Plt Count 325 MPV 9.9 Neut % (Auto) 65.9 Lymph % (Auto) 15.8 L Boundary % (Auto) 10.6 Eos % (Auto) 3.8 Baso % (Auto) 0.2 Neut # (Auto) 7.0 Lymph # (Auto) 1.7 Boundary # (Auto) 1.1 H Eos # (Auto) 0.4 Baso # (Auto) 0.0 Immature Gran % 3.7 Nucleated RBC % 0.0 Immature Gran # 0.39 Nucleated RBCs # 0.00 POC Glucose 145 H 178 H Random Vancomycin Preliminary micro results at discharge 12/09/16 11:52 Blood Culture - Preliminary Blood No growth at 1 day 12/09/16 11:53 Blood Culture - Preliminary Blood No growth at 1 day DS: Provider Date of admission: 12/03/16 11:48 Primary care physician: Frederick Rodrigues DO Attending physician on admission: Frederick Rodrigues DO Consults: 12/03/16 13:54 Consult to Case Mgmt/Social Srvs [CONS] Routine Reason for Case Mgmt/Social Srvs: Discharge Planning Consult to Physician [CONS] Routine Comment: Dialysis Consulting Provider: Carlin Schwartz When should Consulting Provider be notified: Now Person Notified: CLAUDIA Date Notified: 12/03/16 Time Notified: 13:59 Consult to Wound Care - [place] [CONS] Routine Reason for Wound Care: Wound Care Management 12/03/16 14:19 Consult to Pastoral Services [CONS] Routine Comment: Pastoral Screen: Declines Visit Pastoral Screen Source of Request: Patient 12/04/16 12:36 Consult to Physician [CONS] Routine Comment: Positive blood cultures Consulting Provider: Genna Eli Person Notified: jorge Date Notified: 12/04/16 Time Notified: 12:48 Consult Notification Comment: positive BC 12/04/16 19:10 Consult to Pharmacy [CONS] Routine Reason for Pharmacy Consult: Dose/Manage Vancomycin Comment: Goal trough level 20-25 12/05/16 16:03 Consult to Physician [CONS] Routine Comment: Please remove infected HD cath after dialysis SAT Consulting Provider: Bipin Briones III. Person Notified: Dr Briones Date Notified: 12/05/16 Time Notified: 17:00 Consult Notification Comment: New order given for diet in am. 12/05/16 17:52 Consult to Physician [CONS] Routine Comment: Consulting Provider: 12/10/16 11:49 Consult to Pharmacy [CONS] Routine Reason for Pharmacy Consult: Other Comment: Prefer vancomycin trough level of 20-25. Thanks. Discharging clinician: Paulino Clay MD Expected date of discharge: 12/11/16
[2016-12-11] MEDS ORDERED: GLUCAGON 1 MG VIAL IM PRN (15:44)
[2016-12-11] MEDS ORDERED: DEXTROSE 50% 25 GM/50 ML VIAL IV PRN (15:44)
--- NOTE | 2016-12-11 16:49 | Infectious Disease Progress ---
Assessment and Plan (1) MRSA (methicillin resistant Staphylococcus aureus) septicemia Status: Acute Assessment and plan: Source of the septicemia was her hemodialysis catheter which has been removed. TTE negative for endocarditis. Recommendations: 1. Continue vancomycin 750 mg post hemodialysis; aim for trough level of 20-25 2. Follow-up results of repeat blood cultures 3. Vancomycin therapy should be continued until January 06 Current Visit: Yes (2) Altered mental status Status: Acute Assessment and plan: Most likely due to her septicemia, improved. Current Visit: Yes (3) ESRD (end stage renal disease) Status: Chronic Current Visit: Yes (4) Cerebrovascular disease Status: Chronic Current Visit: No (5) Diabetes mellitus Status: Chronic Current Visit: No (6) Essential hypertension Status: Chronic Current Visit: No Infectious Disease - PN: Subj Interval history: Patient complains of pain all over. Other than that she is doing okay, no fever. Infectious Disease Exam (PN) - Constitutional Vitals: Temp Pulse Resp BP Pulse Ox 99.0 F 92 H 20 166/74 95 12/11/16 11:50 12/11/16 11:50 12/11/16 11:50 12/11/16 11:50 12/11/16 11:50 General appearance: mild distress Exam: General appearance: In painful distress, she is getting dialysis when I saw her - Eye Eye exam: Present: EOMI. no icterus Pupils: Present: LIV - ENT ENT exam: no oral exudates - Respiratory Respiratory exam: vesicular BS, no crepitations or wheezes - Cardiovascular Cardiovascular exam: regular rate and rhythm, no murmurs - GI/Abdominal GI/Abdominal exam: normal bowel sounds, soft, non-tender - Extremities Exam Extremities exam: Mild bilateral lower extremity edema - Skin Skin exam: No rash Results - Labs CBC & BMP: 12/11/16 04:49 12/10/16 03:28 Lab Results: I have reviewed the past 24 hour labs (Repeat blood cultures from December 09 negative to date) Quality Measures - VTE Contraindication to Pharmacological VTE Prophylaxis: High Risk of Bleeding
[2016-12-11] MEDS ORDERED: VANCOMYCIN INJ 750 MG in SODIUM CHLORIDE 0.9% 250 ML IV ONE (18:00)
[2016-12-11] MEDS: CINACALCET 30 MG TABLET PO SCH (18:07)
[2016-12-11] MEDS: SODIUM CHLORIDE 0.9% 250 ML IV SCH ×2 (19:07→23:30)
[2016-12-11] MEDS: SIMVASTATIN 20 MG TABLET PO SCH (20:51)
[2016-12-12] MEDS: INSULIN GLARGINE 100 UNIT/ML SUBCUT SCH (05:04)
--- NOTE | 2016-12-12 05:21 | Family Practice Progress Note ---
Family Practice - PN: Subj Interval history: Patient had a good night and has not had any further fever. I believe she will be receiving dialysis today and get her next dose of vancomycin. I discussed her care with Dr. Schwartz yesterday and he thought she go back to the long term. Her discharge summary has been completed. Exam (Progress Note) - Constitutional Vitals: Period Temp Pulse Resp BP Sys/Handley Pulse Ox Last 24 Hr 98.3 F-99.0 F 86-100 18-20 128-166/60-74 92-99 Exam: Objective reveals well-developed black female in no acute distress. She tells me she is feeling better. Cardiovascular: Heart rates regular without murmurs or gallops. Respiratory: Lungs clear to auscultation bilaterally. Abdomen: Abdomen soft and nontender to palpation. Extremities: Patient has no calf swelling or tenderness. Results - Labs CBC & BMP: 12/11/16 04:49 12/10/16 03:28 Lab Results: I have reviewed the past 24 hour labs Assessment and Plan (1) Infection of hemodialysis catheter Status: Resolved Assessment and plan: 12/06/2016: Patient's catheter is to be replaced. 5 08/20/2016: Patient had tunnel catheter removed yesterday. 12/08/2016: We will continue present IV antibiotic therapy. 12/10/2016: Patient is doing well this morning. 12/11/2016: Patient's feeling much better this morning. Current Visit: Yes (2) MRSA (methicillin resistant Staphylococcus aureus) septicemia Status: Acute Assessment and plan: 12/06/2016: Patient is improving on IV vancomycin. 12/09/2016: Patient is receiving vancomycin. 12/10/2016: Patient's on IV vancomycin. 12/11/2016: Patient will receive vancomycin after each dialysis 12/12/2016: Patient will receive IV Rocephin as outlined by Dr. Eli. Current Visit: Yes Quality Measures - VTE Contraindication to Pharmacological VTE Prophylaxis: High Risk of Bleeding
[2016-12-12] MEDS: tiZANidine 4 MG TABLET PO SCH (06:11)
[2016-12-12] MEDS: INSULIN REGULAR 100 UNIT/ML SUBCUT SCH (09:38)
[2016-12-12] MEDS: LIDOCAINE 5% PATCH TRANSDERM SCH (09:45)
[2016-12-12] MEDS: MULTIVITAMIN (CENTRUM) TABLET PO SCH (09:46)
[2016-12-12] MEDS: BISOPROLOL 5 MG TABLET PO SCH (09:46)
[2016-12-12] MEDS: DOCUSATE SODIUM 100 MG CAPSULE PO SCH (09:46)
[2016-12-12] MEDS: metOLazone 2.5 MG TABLET PO SCH (09:46)
[2016-12-12] MEDS: SEVELAMER CARBONATE 800 MG TABLET PO SCH (09:46)
[2016-12-12] MEDS: ASCORBIC ACID 500 MG TABLET PO SCH (09:47)
[2016-12-12] MEDS: FOLIC ACID 1 MG TABLET PO SCH (09:47)
[2016-12-12] MEDS: ALLOPURINOL 100 MG TABLET PO SCH (09:47)
[2016-12-12] MEDS: GABAPENTIN 100 MG CAPSULE PO SCH (09:47)
[2016-12-12] MEDS: ASPIRIN EC 81 MG TABLET PO SCH (09:47)
[2016-12-12] MEDS: PANTOPRAZOLE 40 MG TABLET PO SCH (09:47)
--- NOTE | 2016-12-12 10:25 | Nephrology Progress Note ---
Nephrology - PN: Subj Interval history: She is awake and alert. She is asymptomatic Exam (PN)-Nephrology - Vital Signs Vital signs: Period Temp Pulse Resp BP Sys/Handley Pulse Ox Last 24 Hr 97.6 F-99.2 F 84-100 18-22 128-168/49-74 92-100 Exam: ENT: Normal Cardiovascular: Regular rate and rhythm. No murmur rub or gallop Lungs: Clear Extremities: No edema - Lab 12/11/16 04:49 12/10/16 03:28 Most recent lab results Calcium 7.9 MG/DL (8.5-10.1) L 12/10/16 03:28 Magnesium 2.0 MG/DL (1.8-2.4) 12/04/16 06:50 Assessment and Plan (1) ESRD (end stage renal disease) Status: Chronic Assessment and plan: 75-year-old woman admitted with: * Bacteremia. MRSA. Continue vancomycin. * UTI. Treated * ESRD. Dialysis TTS. Vancomycin will be continued 1 g q. HD through 01/06/2017 * Diabetes mellitus * CAD * Cerebrovascular disease. Prior CVA Current Visit: Yes (2) Altered mental status Status: Acute Current Visit: Yes (3) Leukocytosis Status: Acute Current Visit: Yes (4) Sepsis Status: Acute Current Visit: Yes (5) UTI (lower urinary tract infection) Status: Acute Current Visit: No (6) Cerebrovascular disease Status: Chronic Current Visit: No (7) Coronary disease Status: Chronic Current Visit: No (8) Diabetes mellitus Status: Chronic Current Visit: No Specialty Discharge - Follow Up or Referrals
--- NOTE | 2016-12-12 10:52 | Infectious Disease Progress ---
Assessment and Plan (1) MRSA (methicillin resistant Staphylococcus aureus) septicemia Status: Acute Assessment and plan: Source of the septicemia was her hemodialysis catheter which has been removed. TTE negative for endocarditis. Recommendations: 1. Continue vancomycin 750 mg post hemodialysis; aim for trough level of 20-25 2. Follow-up results of repeat blood cultures 3. Vancomycin therapy should be continued until January 06 Current Visit: Yes (2) Altered mental status Status: Acute Assessment and plan: Most likely due to her septicemia, resolved. Current Visit: Yes (3) ESRD (end stage renal disease) Status: Chronic Current Visit: Yes (4) Cerebrovascular disease Status: Chronic Current Visit: No (5) Diabetes mellitus Status: Chronic Current Visit: No (6) Essential hypertension Status: Chronic Current Visit: No Infectious Disease - PN: Subj Interval history: Patient without complaints, feeling better today no pain reported. She has been afebrile. Infectious Disease Exam (PN) - Constitutional Vitals: Temp Pulse Resp BP Pulse Ox 99.2 F 91 H 18 132/49 100 12/12/16 08:00 12/12/16 08:00 12/12/16 08:00 12/12/16 08:00 12/12/16 08:00 General appearance: mild distress Exam: General appearance: Comfortable - Eye Eye exam: Present: EOMI. no icterus Pupils: Present: LIV - ENT ENT exam: no oral exudates - Respiratory Respiratory exam: vesicular BS, no crepitations or wheezes - Cardiovascular Cardiovascular exam: regular rate and rhythm, no murmurs - GI/Abdominal GI/Abdominal exam: normal bowel sounds, soft, non-tender - Extremities Exam Extremities exam: Mild bilateral lower extremity edema - Skin Skin exam: No rash Results - Labs CBC & BMP: 12/11/16 04:49 12/10/16 03:28 Lab Results: I have reviewed the past 24 hour labs (Repeat blood cultures from the 30 negative to date) Quality Measures - VTE Contraindication to Pharmacological VTE Prophylaxis: High Risk of Bleeding Specialty Discharge - Follow Up or Referrals Follow up with: Devante Lawrence MD [Physician] - 12/16/16 9:30 am
[2016-12-12 11:48] VITALS: BP 148/67
== END 2016-12-12 12:49 | DRG 314 ==
LOC: EDBD → EDUNIT# → N.ED 09:02 → N.EDINP 11:48 → N.2E 12:23
PROVIDERS: ADMIT Family Medicine; ATTEND Family Medicine

== ENCOUNTER 2017-03-28 18:51 | Inpatient (IN) ==
--- NOTE | 2017-03-28 19:22 | Emergency Department Note ---
Arrival - Arrival Chief Complaint: Non-Specific ED Nursing Triage Note: Pt arrives via ems from detention with broken clamp to dialysis port. Pt was at dialysis today and the clamp broke. Hemostat was placed to control blood flow. At time of triage pt has no complaints and no bleeding is present. Pt cath is in right groin. Mode of Arrival: Stretcher Limitations: No Limitations Source: Patient Time Seen by Provider: 03/28/17 19:20 - History of Present Illness HPI Narrative: Patient presents for no medical issue but a mechanical issue with a broken clamp on her dialysis catheter in the right groin. Onset (ago): hour(s) (Patient presents 4 hours post incident) Allergies/Adverse Reactions: Allergies Allergy/AdvReac Type Severity Reaction Status Date / Time ADHESIVE PADS Allergy Unknown BLISTER Uncoded 12/19/16 08:45 Home Medications: Home Medications Medication Instructions Recorded Confirmed Type Allopurinol [Zyloprim] 100 mg PO 0800 08/29/16 03/28/17 History Aspirin [Ecotrin] 81 mg PO 0800 08/29/16 03/28/17 History Cinacalcet [Sensipar] 30 mg PO DAILY W/SUPPER 08/29/16 03/28/17 History Folic Acid Tab 1 mg PO 0800 08/29/16 03/28/17 History Gabapentin Cap/Tab [Neurontin 200 mg PO 0800 08/29/16 03/28/17 History Cap/Tab] Insulin Glargine [Lantus] 22 unit SUBCUT BID@0500,1600 08/29/16 03/28/17 History Multivitamin [Multivitamins] 1 each PO 0800 08/29/16 03/28/17 History Simvastatin 20 mg PO BEDTIME 08/29/16 03/28/17 History Tizanidine HCl [Zanaflex] 2 mg PO Q6H 08/29/16 03/28/17 History metOLazone [Zaroxolyn] 2.5 mg PO 0800 08/29/16 03/28/17 History Sevelamer Carbonate Tab [Renvela 1,600 mg PO BID W/MEALS 08/30/16 03/28/17 History Tab] Ascorbic Acid [Vitamin C] 1,000 mg PO 0800 10/09/16 03/28/17 History Insulin Lispro [HumaLOG] See Protocol SUBCUT ACHS 10/09/16 03/28/17 History NIFEdipine [Nifedipine ER] 60 mg PO 0800 12/03/16 03/28/17 History Bisoprolol Fumarate [Zebeta] 10 mg PO DAILY 12/04/16 03/28/17 History Omeprazole [Prilosec] 20 mg PO DAILY 12/04/16 03/28/17 History Lidocaine 5% Patch [Lidoderm 5% 1 patch TRANSDERM 0800 patch 12/11/16 03/28/17 Rx Patch] HYDROcodone/ACETAMIN 5-325 [[place] 1 tablet PO Q4H PRN #5 tablet 01/08/17 Rx 5-325] Review of System - Review of System 12 point system: reviewed and no additional remarkable complaints except as stated - Review of System Genitourinary female: Present: as per HPI Medical,Surgical,& Family Hx - Medical History Cardio: History of: CAD (history remote coronary stenting), Hypertension, [place] ( HISTORY OF STENTS IN 2009) Neurology: History of: Cerebrovascular Accident (RIGHT SIDE weakness 2010.) No history of: Seizures HEENT: History of: Eye Problem (BILATERAL CATARACT REMOVAL), Dental Problems ( DENTURES UPPER) Endocrine: History of: Diabetes Mellitus (IDDM), Dyslipidemia No history of: Diabetes Mellitus (NIDDM) Rheumatology: History of;: Gout (IN RIGHT HAND AND WRIST) Respiratory: History of: Pneumonia (HX), Respiratory Problems (Dyspnea-Hx Fluid Overload FLU VAC- YES; PNEU VAC- YES.) Renal: History of: Dialysis (T, [facility], [place]), Renal Failure ( DR POTTER) Comment Only: Renal Problems (FISTULA PORT PLACEMENT LEFT ARM) Gastrointestinal: History of: Clostridium Difficile (hx), GI Problems ( OCCASIONAL CONSTIPATION) No history of: GERD Musculoskeletal: History of: Musculoskeletal Problems (ARTHRRITIS) Hematology: History of: Anemia (anemia of chronic disease) No history of: Blood Transfusion Reaction Other: History of: MRSA (Dialysis Cath Site 11/2016 with Sepsis), Skin Problems ( Chronic Lymphedema Stewart Lower Ext; Diabetic Foot Ulcer), Miscellaneous Medical Problems (BLANQUITA LIFT) - Surgical History Cardiac Surgeries: Sugical HX of: Cardiac Catheterization (WITH STENTS DR HORTON) Thoracic Surgeries: Patient denies;: Kidney (Renal Surgery) Neurologic Surgeries: Patient denies: Neurologic Surgery HEENT Surgeries: Surgical HX of: Eye Surgery (STEWART CATARACT SX) Abdominal Surgeries: Surgical HX of: Colonoscopy Reproductive Surgeries: Patient denies;: Gynecologic Surgery Orthopedic Surgeries: Surgical HX of;: Implanted Devices (FISTULA LT ARM) - Family History Family History: Reports;: Family Cancer (SISTER, OVARIAN CA), Family Diabetes ( SISTER, MOTHER), Family Heart Disease (SISTER, BROTHER, FATHER), Family Hypertension (BROTHER, SISTER, MOTHER, FATHER), Family Stroke (SISTER) Denies;: Family Anesthesia Reaction, Family Psychiatric Problems - Social History Smoking Status: Never smoker Frequency of Alcohol Use: None Type of Drug Use: None Exam Physical Examination: GENERAL: Obese chronically ill appearing black female in no acute distress. HEENT: Normocephalic. No trauma. Moist mucous membranes. EOMI. PERRLA. ENT NML NECK: Supple. No adenopathy. CARDIAC: Regular. No murmurs. Heart rate 88 CHEST: Clear to auscultation. No respiratory distress. O2 sat 90% ABDOMEN: Soft. Nontender. Active bowel sounds. EXTREMITIES: No trauma. Normal ROM. Bilateral chronic lymphedema. SKIN: No diaphoresis. No rash. NEURO: Alert. Oriented 3. Motor, sensory, vibratory intact. No focal deficits. Vital Signs: Vital Signs Temperature 97.6 F 03/28/17 18:51 Pulse Rate 88 03/28/17 18:51 Respiratory Rate 19 03/28/17 19:26 Blood Pressure 271/114 03/28/17 18:51 O2 Sat by Pulse Oximetry 98 03/28/17 18:51 Course - Reevaluation(s) Reevaluation #1: Patient advised admission overnight for hemostasis of site of cath removal. - Consultations Consultation #1: Dr. ward evaluate the patient and withdrew the Vas-Cath and will admit for overnight observation concerning hemostasis of the site of withdrawal. A new catheter will be placed before Tuesdays dialysis run. Disposition Clinical Impression: Vas-Cath malfunction, Dialysis dependent renal failure Case discussed with: patient Disposition: Still a Patient Condition: Stable Time of Disposition: 00:22
--- NOTE | 2017-03-28 22:28 | General Surgery Consult Note ---
Assessment and Plan (1) Dialysis catheter clot or failure Status: Acute Assessment and plan: This patient has a damaged hemodialysis catheter and unfortunately we were unable to repaired in the ER because the kit was not available. The clamp was damaged on the catheter and I did not think it was safe to treat the patient with anything that would not remove the catheter because of the risk of bleeding. I tried to look in the hospital for about an hour further replacement but was not here so I recommend removing the catheter to the patient and replacing it next week. She dialyzed on Thursday so we will replace catheter Thursday and arrange for her to be brought from her [facility] to same-day surgery on Thursday for catheter placement. The catheter was removed in the ER and she was discharged home. Current Visit: Yes History of Present Illness Chief complaint: Damage hemodialysis catheter History of present illness: Ms. Hernandez is a 76 year old female who presents to the ER with the most hemodialysis catheter. The clamp on her tubing has fractured and there are no replacements available in the hospital. Home Medications Medication Instructions Recorded Confirmed Type Allopurinol [Zyloprim] 100 mg PO 0800 08/29/16 03/28/17 History Aspirin [Ecotrin] 81 mg PO 0800 08/29/16 03/28/17 History Cinacalcet [Sensipar] 30 mg PO DAILY W/SUPPER 08/29/16 03/28/17 History Folic Acid Tab 1 mg PO 0800 08/29/16 03/28/17 History Gabapentin Cap/Tab [Neurontin 200 mg PO 0800 08/29/16 03/28/17 History Cap/Tab] Insulin Glargine [Lantus] 22 unit SUBCUT BID@0500,1600 08/29/16 03/28/17 History Multivitamin [Multivitamins] 1 each PO 0800 08/29/16 03/28/17 History Simvastatin 20 mg PO BEDTIME 08/29/16 03/28/17 History Tizanidine HCl [Zanaflex] 2 mg PO Q6H 08/29/16 03/28/17 History metOLazone [Zaroxolyn] 2.5 mg PO 0800 08/29/16 03/28/17 History Sevelamer Carbonate Tab [Renvela 1,600 mg PO BID W/MEALS 08/30/16 03/28/17 History Tab] Ascorbic Acid [Vitamin C] 1,000 mg PO 0800 03/30/17 09/16/17 History Insulin Lispro [HumaLOG] See Protocol SUBCUT ACHS 10/09/16 03/28/17 History NIFEdipine [Nifedipine ER] 60 mg PO 0800 12/03/16 03/28/17 History Bisoprolol Fumarate [Zebeta] 10 mg PO DAILY 12/04/16 03/28/17 History Omeprazole [Prilosec] 20 mg PO DAILY 12/04/16 03/28/17 History Lidocaine 5% Patch [Lidoderm 5% 1 patch TRANSDERM 08 patch 12/11/16 03/28/17 Rx Patch] HYDROcodone/ACETAMIN 5-325 [[place] 1 tablet PO Q4H PRN #5 tablet 01/08/17 Rx 5-325] Allergies Allergy/AdvReac Type Severity Reaction Status Date / Time ADHESIVE PADS Allergy Unknown BLISTER Uncoded 12/19/16 08:45 Medical,Surgical,& Family Hx - Medical History Cardio: History of: CAD (history remote coronary stenting), Hypertension, [place] ( HISTORY OF STENTS IN 2009) Neurology: History of: Cerebrovascular Accident (RIGHT SIDE weakness 2010.) No history of: Seizures HEENT: History of: Eye Problem (BILATERAL CATARACT REMOVAL), Dental Problems ( DENTURES UPPER) Endocrine: History of: Diabetes Mellitus (IDDM), Dyslipidemia No history of: Diabetes Mellitus (NIDDM) Rheumatology: History of;: Gout (IN RIGHT HAND AND WRIST) Respiratory: History of: Pneumonia (HX), Respiratory Problems (Dyspnea-Hx Fluid Overload FLU VAC- YES; PNEU VAC- YES.) Renal: History of: Dialysis (, [facility], [place]), Renal Failure ( DR POTTER) Comment Only: Renal Problems (FISTULA PORT PLACEMENT LEFT ARM) Gastrointestinal: History of: Clostridium Difficile (hx), GI Problems ( OCCASIONAL CONSTIPATION) No history of: GERD Musculoskeletal: History of: Musculoskeletal Problems (ARTHRRITIS) Hematology: History of: Anemia (anemia of chronic disease) No history of: Blood Transfusion Reaction Other: History of: MRSA (Dialysis Cath Site 11/2016 with Sepsis), Skin Problems ( Chronic Lymphedema Stewart Lower Ext; Diabetic Foot Ulcer), Miscellaneous Medical Problems (BLANQUITA LIFT) - Surgical History Cardiac Surgeries: Sugical HX of: Cardiac Catheterization (WITH STENTS DR HORTON) Thoracic Surgeries: Patient denies;: Kidney (Renal Surgery) Neurologic Surgeries: Patient denies: Neurologic Surgery HEENT Surgeries: Surgical HX of: Eye Surgery (STEWART CATARACT SX) Abdominal Surgeries: Surgical HX of: Colonoscopy Reproductive Surgeries: Patient denies;: Gynecologic Surgery Orthopedic Surgeries: Surgical HX of;: Implanted Devices (FISTULA LT ARM) - Family History Family History: Reports;: Family Cancer (SISTER, OVARIAN CA), Family Diabetes ( SISTER, MOTHER), Family Heart Disease (SISTER, BROTHER, FATHER), Family Hypertension (BROTHER, SISTER, MOTHER, FATHER), Family Stroke (SISTER) Denies;: Family Anesthesia Reaction, Family Psychiatric Problems - Social History Smoking Status: Never smoker Frequency of Alcohol Use: None Type of Drug Use: None - Constitutional Constitutional: Present: as per HPI - EENT Nose, mouth and throat: Present: as per HPI - Cardiovascular Cardiovascular: Present: as per HPI - Respiratory Respiratory: Present: as per HPI - Gastrointestinal Gastrointestinal: Present: as per HPI - Genitourinary Genitourinary: Present: as per HPI - Musculoskeletal Musculoskeletal: Present: as per HPI - Neurological Neurological: Present: as per HPI - Endocrine Endocrine: Present: as per HPI Hematologic/Lymphatic: Present: as per HPI Exam - Constitutional Vitals: Period Temp Pulse Resp BP Sys/Handley Pulse Ox Last 24 Hr 97.6 F-97.6 F 88-88 16-19 271-271/114-114 98 General appearance: no acute distress, over weight - Head Head exam: Present: normal inspection, normocephalic - Eye Eye exam: Present: EOMI Pupils: Present: LIV - ENT ENT exam: Present: normal exam Mouth exam: Present: normal external inspection, normal voice - Neck Neck exam: Present: normal inspection, trachea midline - Respiratory Respiratory exam: Present: clear to auscultation bilaterally. Absent: accessory muscle use, chest wall tenderness - Cardiovascular Cardiovascular exam: Present: RRR. Absent: systolic murmur, tachycardia - GI/Abdominal GI/Abdominal exam: Present: soft. Absent: tenderness, rebound - Extremities Exam Extremities exam: Present: normal inspection, normal capillary refill, other ( The dialysis catheter in the right groin has a fracture on the clamp.) - Back Exam Back exam: Present: normal inspection - Neurological Exam Neurological exam: Present: alert, oriented X3 Speech: Present: normal - Skin Skin exam: Present: normal color, warm
--- NOTE | 2017-03-28 22:29 | Operative Note ---
Date of procedure: 03/28/17 Pre-op diagnosis: Damaged hemodialysis catheter Post-op diagnosis: same Procedure: Pre-operative diagnosis Damage dialysis catheter Post-operative diagnosis same Procedures Performed Removal of tunneled hemodialysis catheter Findings Complete catheter removal with no infection or clot Complications None apparent Indications M his dialysis cath Description of procedure The patient was placed in supine position in her ER bed in the groin catheter was prepped with Betadine and draped sterilely. Verbal consent was obtained. Timeout was called. Local anesthetic was administered around the catheter and an elliptical skin incision was made with a scalpel. The catheter was freed up the subcutaneous tissues and the cup was . There is good incorporation with no clot or infection. The catheter was completely removed intact and the catheter site was closed with a 4-0 Monocryl suture. The pressure was held over the neck site until bleeding stopped. The patient was transferred to recovery. Postoperative plan Return to hospital on Thursday for catheter placement. Anesthesia: local Surgeon / Physician: Jung Moeller Estimated blood loss: minimal Specimens: none sent Condition: stable Disposition: no change Discharge Plan - Discharge Medications No Action Cinacalcet [Sensipar] 30 mg PO DAILY W/SUPPER Insulin Glargine [Lantus] 22 unit SUBCUT BID@0500,1600 Allopurinol [Zyloprim] 100 mg PO 0800 metOLazone [Zaroxolyn] 2.5 mg PO 0800 Folic Acid Tab 1 mg PO 0800 Multivitamin [Multivitamins] 1 each PO 0800 Tizanidine HCl [Zanaflex] 2 mg PO Q6H Sevelamer Carbonate Tab [Renvela Tab] 1,600 mg PO BID W/MEALS Insulin Lispro [HumaLOG] See Protocol SUBCUT ACHS Bisoprolol Fumarate [Zebeta] 10 mg PO DAILY Lidocaine 5% Patch [Lidoderm 5% Patch] 1 patch TRANSDERM 0800 patch HYDROcodone/ACETAMIN 5-325 [[place] 5-325] 1 tablet PO Q4H PRN #5 tablet PRN Reason: Pain Gabapentin Cap/Tab [Neurontin Cap/Tab] 200 mg PO 0800 Aspirin [Ecotrin] 81 mg PO 0800 Simvastatin 20 mg PO BEDTIME Ascorbic Acid [Vitamin C] 1,000 mg PO 0800 NIFEdipine [Nifedipine ER] 60 mg PO 0800 Omeprazole [Prilosec] 20 mg PO DAILY - Follow Up or Referral - Forms/Instructions
[2017-03-29] MEDS ORDERED: ONDANSETRON 4 MG/2 ML VIAL IV PRN (00:24)
[2017-03-29] MEDS ORDERED: DEXTROSE 50% 25 GM/50 ML SYRINGE IV PRN (00:24)
[2017-03-29] MEDS ORDERED: GLUCAGON 1 MG VIAL IM PRN (00:24)
[2017-03-29 01:03] LABS: Basophils % 0.7 % (0.0-0.8); Eosinophils # 0.6 10*3/uL (0.0-0.87); Eosinophils % 10.3 % (0.00-10.9); Hematocrit 34.5 VOL% (35.7-47.0); Hemoglobin 10.8 GM/DL (12.0-16.0); Immature Granulocytes % 0.3 %; Immature Granulocytes Absolute 0.02 #; Lymphocytes # 1.6 10*3/uL (1.4-4.0); Lymphocytes % 26.8 % (21.3-54.2); Mean Corpuscular HGB Conc 31.3 GM/DL (32-36); Mean Corpuscular Hemoglobin 29 PG (27-34); Mean Corpuscular Volume 93.2 FL (87-102); Mean Platelet Volume 11.1 FL (9.6-12.0); Monocytes # 0.6 10*3/uL (0.11-0.8); Monocytes % 10.8 % (1.7-12.7); Neutrophils % 51.1 % (38.7-73.9); Platelet Count 167 T/CUMM (130-400); Red Cell Distribution Width 16.5 % (9.3-17.3); White Blood Count 5.9 T/CUMM (4-12)
--- NOTE | 2017-03-29 04:13 | Event Note ---
This is not my patient but I had to stop a small arterial bleed in the right groin were a dialysis catheter was pulled out by the surgeon. 3 2-0 sutures were placed in this area to stop the bleeding with hemostatic control. This is done under sterile procedure. Procedure note: Under sterile condition 5 cc of lidocaine used 2-0 nylon sutures were placed 1 oversewed #2 suture [id number] tie #3 suture simple interrupted Bleeding was controlled dressing was placed No complication
[2017-03-29 06:47] LABS: Basophils % 0.6 % (0.0-0.8); Eosinophils # 0.5 10*3/uL (0.0-0.87); Eosinophils % 10.3 % (0.00-10.9); Hematocrit 34.1 VOL% (35.7-47.0); Hemoglobin 10.7 GM/DL (12.0-16.0); Immature Granulocytes % 0.4 %; Immature Granulocytes Absolute 0.02 #; Lymphocytes # 1.3 10*3/uL (1.4-4.0); Lymphocytes % 25.2 % (21.3-54.2); Mean Corpuscular HGB Conc 31.4 GM/DL (32-36); Mean Corpuscular Hemoglobin 29 PG (27-34); Mean Corpuscular Volume 93.2 FL (87-102); Mean Platelet Volume 11.2 FL (9.6-12.0); Monocytes # 0.7 10*3/uL (0.11-0.8); Monocytes % 12.6 % (1.7-12.7); Neutrophils # 2.6 10*3/uL (1.4-7.4); Neutrophils % 50.9 % (38.7-73.9); Platelet Count 158 T/CUMM (130-400); Red Blood Count 3.66 MC/CUMM (3.8-5.5); Red Cell Distribution Width 16.6 % (9.3-17.3); White Blood Count 5.2 T/CUMM (4-12)
[2017-03-29] MEDS: INSULIN REGULAR 100 UNIT/ML SUBCUT SCH ×4 (08:24→21:31)
[2017-03-29] MEDS: ASPIRIN 325 MG TABLET PO SCH (08:30)
[2017-03-29] MEDS: BISOPROLOL 5 MG TABLET PO SCH (08:30)
[2017-03-29] MEDS: SEVELAMER CARBONATE 800 MG TABLET PO SCH ×3 (08:30→17:01)
[2017-03-29] MEDS: PANTOPRAZOLE 40 MG TABLET PO SCH (08:31)
[2017-03-29] MEDS: metOLazone 2.5 MG TABLET PO SCH (08:31)
[2017-03-29] MEDS: INSULIN GLARGINE 100 UNIT/ML SUBCUT SCH ×2 (09:30→21:31)
[2017-03-29] MEDS ORDERED: CLINDAMYCIN INJ 900 MG in PREMIX 1 EACH IV ONE (11:06)
--- NOTE | 2017-03-29 11:06 | General Surgery Progress Note ---
Assessment and Plan (1) Dialysis catheter clot or failure Status: Acute Assessment and plan: The patient will be placed on the OR schedule tomorrow for dialysis catheter placement. Current Visit: Yes Subjective Patient reports: Present: no new complaints Narrative: The patient was scheduled to be discharged home from the ER last night but there is some bleeding from her closure site in her groin and the ER doctor felt uncomfortable sending her back to her [facility] so she was admitted to ok for management. Exam - Constitutional Vitals: Period Temp Pulse Resp BP Sys/Handley Pulse Ox Last 24 Hr 97.6 F-98 F 88-91 16-19 117-271/56-114 98-100 General appearance: no acute distress, over weight - Head Head exam: Present: normal inspection - Eye Eye exam: Present: EOMI - ENT ENT exam: Present: normal exam Mouth exam: Present: normal external inspection, normal voice - Neck Neck exam: Present: normal inspection, trachea midline - Respiratory Respiratory exam: Absent: accessory muscle use, prolonged expiratory phase - Cardiovascular Cardiovascular exam: Absent: tachycardia - Extremities Exam Extremities exam: Present: other (There is no further bleeding from the catheter removal site in the right groin) - Back Exam Back exam: Present: normal inspection - Neurological Exam Neurological exam: Present: alert, oriented X3 Speech: Present: normal - Skin Skin exam: Present: normal color Results - Labs CBC & BMP: 03/29/17 06:26
[2017-03-29] MEDS ORDERED: SIMVASTATIN 20 MG TABLET PO SCH (21:00)
[2017-03-29] MEDS ORDERED: ALLOPURINOL 100 MG TABLET PO SCH (21:00)
[2017-03-30] MEDS ORDERED: CLINDAMYCIN INJ 900 MG in PREMIX 1 EACH IV ONE (07:00)
--- NOTE | 2017-03-30 07:28 | Event Note ---
Plan for tunneled hemodialysis catheter placement today.
[2017-03-30] MEDS: INSULIN REGULAR 100 UNIT/ML SUBCUT SCH ×3 (07:45→19:45)
[2017-03-30] MEDS: BISOPROLOL 5 MG TABLET PO SCH (08:48)
[2017-03-30] MEDS: SEVELAMER CARBONATE 800 MG TABLET PO SCH ×2 (08:51→19:44)
[2017-03-30] MEDS ORDERED: BUPIVACAINE 0.25% 50 ML VIAL ONE (13:04)
[2017-03-30] MEDS ORDERED: HEPARIN 5,000 UNIT/1 ML VIAL ONE (13:05)
[2017-03-30] MEDS ORDERED: DESITIN 4OZ/NYSTATIN 15 GRAM MIXTURE PASTE TOP SCH (13:30)
--- NOTE | 2017-03-30 14:45 | Operative Note ---
Date of procedure: 03/30/17 Pre-op diagnosis: Renal failure with need for hemodialysis access Post-op diagnosis: same Procedure: Preoperative diagnosis Renal failure with need for hemodialysis access Postoperative diagnosis Same Procedures performed 1. Left common femoral vein tunneled hemodialysis catheter placement 2. Ultrasound guidance and interpretation of images 3. Fluoroscopic guidance and interpretation of images Findings The left common femoral vein is compressible and it was accessed for hemodialysis access. The tip of the catheter was place in the inferior vena cava. Patient tolerated procedure well and both ports worked well. Complications none apparent Specimen None Indications Renal failure with need for access for hemodialysis Description of procedure The patient was taken to the operating room and transferred to the operating table in the supine position. Pressure points are padded and SCDs placed lower extremity. Monitored anesthesia was administered and the bilateral groins were prepped and draped sterile fashion using chlorhexidine. Preoperative antibiotics were administered and a timeout was performed. Ultrasound was used to identify the left common femoral vein and local anesthetic was infiltrated around the vein. Local anesthetic was also administered around the planned tract site down to the anterior left thigh. The vein was accessed on first stick and nonpulsatile venous blood was obtained. A wire was placed using Seldinger technique. An incision was made alongside the wire using a long blade scalpel and a separate incision in the distal left thigh was made with an 11 blade scalpel. A 42 cm catheter was tunneled from the thigh incision into the groin wound and a dilator peel-away sheath was placed over the wire. The wire and dilator was removed and the catheter was placed to the peel-away sheath. The catheter was secured in place in the inferior vena cava on fluoroscopic images. Both returned blood easily and were flushed with heparin. The catheter was secured in place using 3-0 nylon sutures and the neck incision was closed with 3-0 nylon suture. Sterile dressings were applied. The patient was awakened from anesthesia and transferred to recovery. Postoperative plan Begin hemodialysis Implants: 42 cm tunneled hemodialysis catheter Anesthesia: MAC, local Surgeon / Physician: Jung Moeller Estimated blood loss: minimal Specimens: none sent Condition: stable Disposition: no change Results - Labs CBC & BMP: 03/29/17 06:26 03/30/17 06:48 Discharge Plan - Discharge Medications No Action Cinacalcet [Sensipar] 30 mg PO DAILY W/SUPPER Insulin Glargine [Lantus] 22 unit SUBCUT BID@0500,1600 Allopurinol [Zyloprim] 100 mg PO 0800 metOLazone [Zaroxolyn] 2.5 mg PO 0800 Folic Acid Tab 1 mg PO 0800 Multivitamin [Multivitamins] 1 each PO 0800 Tizanidine HCl [Zanaflex] 2 mg PO Q6H Sevelamer Carbonate Tab [Renvela Tab] 1,600 mg PO TID W/MEALS Insulin Lispro [HumaLOG] See Protocol SUBCUT ACHS Bisoprolol Fumarate [Zebeta] 10 mg PO DAILY Lidocaine 5% Patch [Lidoderm 5% Patch] 1 patch TRANSDERM 0800 patch Acetaminophen Tab [Tylenol Tab] 650 mg PO Q6HR PRN PRN Reason: Pain HYDROcodone/ACETAMIN 7.5-325 [[place] 7.5-325] 1 tablet PO Q6H PRN PRN Reason: Pain Ondansetron Tab [Zofran Tab] 4 mg PO Q4H PRN PRN Reason: Nausea Gabapentin Cap/Tab [Neurontin Cap/Tab] 200 mg PO 0800 Aspirin [Ecotrin] 81 mg PO 0800 Simvastatin 20 mg PO BEDTIME Ascorbic Acid [Vitamin C] 1,000 mg PO 0800 NIFEdipine [Nifedipine ER] 60 mg PO 0800 Omeprazole [Prilosec] 20 mg PO BEDTIME Nitroglycerin Sl Tab [Nitrostat] 0.4 mg SL Q5M PRN PRN Reason: Chest Pain - Follow Up or Referral - Forms/Instructions
--- NOTE | 2017-03-30 14:56 | Anesthesia Post-Op ---
Anesthesia Post OP - Post Ansesthetic Evaluation Patient seen in post op: Yes Resp: within normal limits CV: within normal limits Mental: within normal limits Temp: within normal limits [id number]: within normal limits Nausea and Vomiting: within normal limits Pain: within normal limits
[2017-03-30] MEDS ORDERED: fentaNYL 100 MCG/2 ML VIAL ONE (14:57)
[2017-03-30] MEDS ORDERED: MIDAZOLAM 2 MG/2 ML VIAL ONE (14:57)
[2017-03-30] MEDS ORDERED: diphenhydrAMINE 50 MG/1 ML VIAL ONE (15:13)
[2017-03-30] MEDS ORDERED: diphenhydrAMINE 50 MG/1 ML VIAL IV ONE (15:15)
[2017-03-30] MEDS ORDERED: SODIUM CHLORIDE 0.9% 500 ML IV SCH (15:30)
--- NOTE | 2017-03-30 15:58 | Discharge Summary ---
Hospital Course - Hospital Course Hospital Course: This patient was admitted for a broken hemodialysis catheter that was replaced. Her potassium was 5.5 on the day of discharge and I discussed this with her nephrology team who agreed she could be discharged home and go back to outpatient dialysis tomorrow. She is a [facility] patient we will arrange for her to be transferred back to the [facility] today. Diagnosis - Discharge Diagnosis (1) Dialysis catheter clot or failure Status: Acute Discharge Plan - Discharge Data Disposition: Disch/Xfer to Snf Condition at Discharge: Stable Discharge Diet: advance to your usual diet Activity: resume usual activities as tolerated Hygiene: may shower Weight Bearing at Discharge: weight bear as tolerated Driving: not until seen by doctor Contact your physician if you experience:: fever over 101, Difficulty voiding, Redness or swelling, Nausea/Vomiting, Shortness of breath, Bleeding, pain uncontrolled by pain medications - Discharge Medications Continue Cinacalcet [Sensipar] 30 mg PO DAILY W/SUPPER Insulin Glargine [Lantus] 22 unit SUBCUT BID@0500,1600 Allopurinol [Zyloprim] 100 mg PO 0800 metOLazone [Zaroxolyn] 2.5 mg PO 0800 Folic Acid Tab 1 mg PO 0800 Multivitamin [Multivitamins] 1 each PO 0800 Tizanidine HCl [Zanaflex] 2 mg PO Q6H Sevelamer Carbonate Tab [Renvela Tab] 1,600 mg PO TID W/MEALS Insulin Lispro [HumaLOG] See Protocol SUBCUT ACHS Bisoprolol Fumarate [Zebeta] 10 mg PO DAILY Lidocaine 5% Patch [Lidoderm 5% Patch] 1 patch TRANSDERM 0800 patch HYDROcodone/ACETAMIN 7.5-325 [[place] 7.5-325] 1 tablet PO Q6H PRN PRN Reason: Pain Ondansetron Tab [Zofran Tab] 4 mg PO Q4H PRN PRN Reason: Nausea Gabapentin Cap/Tab [Neurontin Cap/Tab] 200 mg PO 0800 Aspirin [Ecotrin] 81 mg PO 0800 Simvastatin 20 mg PO BEDTIME Ascorbic Acid [Vitamin C] 1,000 mg PO 0800 NIFEdipine [Nifedipine ER] 60 mg PO 0800 Omeprazole [Prilosec] 20 mg PO BEDTIME Nitroglycerin Sl Tab [Nitrostat] 0.4 mg SL Q5M PRN PRN Reason: Chest Pain Discontinued Acetaminophen Tab [Tylenol Tab] 650 mg PO Q6HR PRN PRN Reason: Pain - Follow Up or Referral - Forms/Instructions Exam - Constitutional Vitals: Period Temp Pulse Resp BP Sys/Handley Pulse Ox Last 24 Hr 97.2 F-99.8 F 77-89 16-20 106-171/58-85 95-100 General appearance: no acute distress, over weight - Head Head exam: Present: normal inspection, normocephalic - Eye Eye exam: Present: EOMI Pupils: Present: LIV - ENT ENT exam: Present: normal exam - Neck Neck exam: Present: normal inspection - Respiratory Respiratory exam: Present: clear to auscultation bilaterally. Absent: accessory muscle use, chest wall tenderness - Cardiovascular Cardiovascular exam: Present: regular rate and rhythm. Absent: systolic murmur , tachycardia - Extremities Exam Extremities exam: Present: normal inspection, normal capillary refill - Neurological Exam Neurological exam: Present: alert - Psychiatric Psychiatric exam: Present: normal affect, normal mood Discharge Results Labs on day of discharge: Labs from last 24 hours 03/30/17 03/30/17 03/30/17 11:03 06:48 06:43 Potassium 5.5 H POC Glucose 104 111 H 03/29/17 03/29/17 21:16 16:53 Potassium POC Glucose 147 H 99 DS: Provider Date of admission: 03/29/17 00:23 Primary care physician: Frederick Rodrigues DO Attending physician on admission: Jung Moeller MD Consults: 03/29/17 11:07 Consult to Anesthesiology [CONS] Routine Consulting Provider: Reason for Anesthesiology: Pre-op Clearance 03/30/17 15:00 Consult to Physician [CONS] Routine Comment: Consulting Provider: Charlie Max Jr. Consulting Provider Notified: Yes When should Consulting Provider be notified: Now Consult to Specialist Group: Nephrology When should Consulting Provider be notified: Now Person Notified: Alize robledo Date Notified: 03/30/17 Time Notified: 15:17 Discharging clinician: Jung Moeller MD Expected date of discharge: 03/30/17
[2017-03-30 19:08] VITALS: BP 169/79
[2017-03-30] MEDS: metOLazone 2.5 MG TABLET PO SCH (19:43)
[2017-03-30] MEDS: INSULIN GLARGINE 100 UNIT/ML SUBCUT SCH (19:43)
[2017-03-30] MEDS: ASPIRIN 325 MG TABLET PO SCH (19:43)
[2017-03-30] MEDS: PANTOPRAZOLE 40 MG TABLET PO SCH (19:43)
== END 2017-03-30 18:34 | DRG 314 ==
LOC: EDUNIT# → N.ED 18:51 → N.EDINP 03-29 00:23 → N.TELEN 03-29 01:44 → N.3E 03-29 15:53
PROVIDERS: ADMIT Surgery; ATTEND Surgery

== ENCOUNTER 2017-12-16 17:43 | Inpatient (IN) ==
[2017-12-16] MEDS ORDERED: VANCOMYCIN INJ 1,000 MG in SODIUM CHLORIDE 0.9% 250 ML IV STA (18:13)
[2017-12-16 19:25] LABS: Basophils # 0.1 10*3/uL (0.0-0.2); Basophils % 0.3 % (0.0-0.8); Eosinophils # 0.1 10*3/uL (0.0-0.87); Eosinophils % 0.4 % (0.00-10.9); Hematocrit 28.6 VOL% (35.7-47.0); Hemoglobin 9.1 GM/DL (12.0-16.0); Immature Granulocytes % 0.9 %; Immature Granulocytes Absolute 0.16 #; Lymphocytes # 1.8 10*3/uL (1.4-4.0); Lymphocytes % 9.4 % (21.3-54.2); Mean Corpuscular HGB Conc 31.8 GM/DL (32-36); Mean Corpuscular Hemoglobin 32 PG (27-34); Mean Corpuscular Volume 99.3 FL (87-102); Mean Platelet Volume 10.5 FL (9.6-12.0); Monocytes # 0.9 10*3/uL (0.11-0.8); Monocytes % 4.9 % (1.7-12.7); Neutrophils # 15.7 10*3/uL (1.4-7.4); Neutrophils % 84.1 % (38.7-73.9); Platelet Count 216 T/CUMM (130-400); Red Blood Count 2.88 MC/CUMM (3.8-5.5); Red Cell Distribution Width 16.2 % (9.3-17.3); White Blood Count 18.7 T/CUMM (4-12)
[2017-12-16] MEDS ORDERED: VANCOMYCIN 1,000 MG VIAL ONE (19:31)
[2017-12-16 19:43] LABS: Alanine Aminotransferase 13 U/L (13-56); Alkaline Phosphatase 126 U/L (45-117); Amylase 67 U/L (25-115); Aspartate Amino Transferase 12 U/L (0-37); Bilirubin,Total < 0.39 MG/DL (0.2-1.0); Blood Urea Nitrogen 29 MG/DL (7-18); Glucose 84 MG/DL (74-106); Osmolality,Calculated 277.8 MOS/KG (273-304); Potassium 3.7 MMOL/L (3.5-5.1); Sodium 137 MMOL/L (136-145); Total Protein 8.3 G/DL (6.4-8.3)
[2017-12-16 20:18] LABS: Troponin I Only < 0.015 NG/ML (0.00-0.045)
[2017-12-16] MEDS ORDERED: DEXTROSE 50% 25 GM/50 ML VIAL IV PRN (21:40)
[2017-12-16] MEDS ORDERED: GLUCAGON 1 MG VIAL IM PRN (21:40)
[2017-12-16] MEDS ORDERED: NITROGLYCERIN 0.3 MG SL PRN (21:40)
[2017-12-16] MEDS ORDERED: MORPHINE 4 MG/1 ML VIAL IV PRN (21:40)
[2017-12-16] MEDS ORDERED: ONDANSETRON 4 MG/2 ML VIAL IV PRN (21:40)
[2017-12-16] MEDS ORDERED: VANCOMYCIN INJ 1,500 MG in SODIUM CHLORIDE 0.9% 500 ML IV PRN (21:40)
[2017-12-16] MEDS ORDERED: NON-FORMULARY MEDICATION (Omeprazole [Prilosec] 20 MG) PO SCH (21:40)
[2017-12-16] MEDS: INSULIN REGULAR 100 UNIT/ML SUBCUT SCH (21:48)
[2017-12-16] MEDS: SODIUM CHLORIDE 0.9% 1,000 ML IV SCH (22:22)
[2017-12-16] MEDS: SIMVASTATIN 20 MG TABLET PO SCH (22:59)
[2017-12-16] MEDS: tiZANidine 4 MG TABLET PO SCH (22:59)
[2017-12-16] MEDS: DOCUSATE SODIUM 100 MG CAPSULE PO SCH (22:59)
[2017-12-17 05:11] LABS: Basophils % 0.2 % (0.0-0.8); Eosinophils # 0.1 10*3/uL (0.0-0.87); Hematocrit 24.3 VOL% (35.7-47.0); Hemoglobin 7.5 GM/DL (12.0-16.0); Immature Granulocytes % 0.5 %; Immature Granulocytes Absolute 0.06 #; Lymphocytes # 2.1 10*3/uL (1.4-4.0); Lymphocytes % 16.6 % (21.3-54.2); Mean Corpuscular HGB Conc 30.9 GM/DL (32-36); Mean Corpuscular Hemoglobin 31 PG (27-34); Mean Platelet Volume 10.9 FL (9.6-12.0); Monocytes # 0.9 10*3/uL (0.11-0.8); Monocytes % 7.4 % (1.7-12.7); Neutrophils # 9.2 10*3/uL (1.4-7.4); Neutrophils % 74.3 % (38.7-73.9); Platelet Count 206 T/CUMM (130-400); Red Blood Count 2.43 MC/CUMM (3.8-5.5); Red Cell Distribution Width 16.1 % (9.3-17.3); White Blood Count 12.4 T/CUMM (4-12)
[2017-12-17 05:49] LABS: Alanine Aminotransferase 11 U/L (13-56); Albumin 2.6 G/DL (3.4-5.0); Alkaline Phosphatase 109 U/L (45-117); Aspartate Amino Transferase 10 U/L (0-37); Bilirubin,Total < 0.39 MG/DL (0.2-1.0); Blood Urea Nitrogen 35 MG/DL (7-18); Calcium 8.9 MG/DL (8.5-10.1); Cholesterol 116 MG/DL (50-200); Glucose 92 MG/DL (74-106); HDL Cholesterol 39 MG/DL (40-60); Osmolality,Calculated 284.5 MOS/KG (273-304); Potassium 3.6 MMOL/L (3.5-5.1); Risk Ratio 2.97; Sodium 139 MMOL/L (136-145); Total Protein 7.3 G/DL (6.4-8.3); Triglycerides 168 MG/DL (2-150); VLDL CHOLESTEROL 33.6 MG/DL
[2017-12-17] MEDS: tiZANidine 4 MG TABLET PO SCH ×3 (06:46→17:00)
[2017-12-17] MEDS: INSULIN REGULAR 100 UNIT/ML SUBCUT SCH ×4 (07:49→21:19)
[2017-12-17] MEDS ORDERED: LEVOFLOXACIN INJ 500 MG in PREMIX 1 EACH IV SCH (08:30)
[2017-12-17] MEDS: EZETIMIBE 10 MG TABLET PO SCH (08:41)
[2017-12-17] MEDS: metOLazone 2.5 MG TABLET PO SCH (08:41)
[2017-12-17] MEDS: MULTIVITAMIN (CENTRUM) TABLET PO SCH (08:41)
[2017-12-17] MEDS: GABAPENTIN 100 MG CAPSULE PO SCH (08:42)
[2017-12-17] MEDS: SEVELAMER CARBONATE 800 MG TABLET PO SCH ×3 (08:42→16:49)
[2017-12-17] MEDS: ASCORBIC ACID 500 MG TABLET PO SCH (08:42)
[2017-12-17] MEDS: ASPIRIN EC 81 MG TABLET PO SCH (08:43)
[2017-12-17] MEDS: FOLIC ACID 1 MG TABLET PO SCH (08:43)
[2017-12-17] MEDS: PANTOPRAZOLE 40 MG TABLET PO SCH (08:43)
[2017-12-17] MEDS: DOCUSATE SODIUM 100 MG CAPSULE PO SCH ×2 (08:43→21:19)
[2017-12-17] MEDS: INSULIN GLARGINE 100 UNIT/ML SUBCUT SCH ×2 (08:44→21:20)
[2017-12-17] MEDS ORDERED: SKIN HEALING OINT (AQUAPHOR) 50 GM TUBE TOP PRN (11:05)
[2017-12-17] MEDS: SIMVASTATIN 20 MG TABLET PO SCH (21:19)
[2017-12-18] MEDS: tiZANidine 4 MG TABLET PO SCH ×5 (00:06→23:13)
[2017-12-18] MEDS: SODIUM CHLORIDE 0.9% 1,000 ML IV SCH (07:41)
[2017-12-18] MEDS: INSULIN REGULAR 100 UNIT/ML SUBCUT SCH ×4 (07:42→21:45)
[2017-12-18] MEDS ORDERED: LEVOFLOXACIN INJ 250 MG in PREMIX 1 EACH IV SCH (08:30)
[2017-12-18 09:05] LABS: Basophils % 0.3 % (0.0-0.8); Eosinophils # 0.4 10*3/uL (0.0-0.87); Eosinophils % 5.3 % (0.00-10.9); Hematocrit 25.7 VOL% (35.7-47.0); Hemoglobin 8.2 GM/DL (12.0-16.0); Immature Granulocytes % 0.4 %; Immature Granulocytes Absolute 0.03 #; Lymphocytes # 1.7 10*3/uL (1.4-4.0); Lymphocytes % 21.3 % (21.3-54.2); Mean Corpuscular HGB Conc 31.9 GM/DL (32-36); Mean Corpuscular Hemoglobin 32 PG (27-34); Mean Corpuscular Volume 98.8 FL (87-102); Mean Platelet Volume 10.7 FL (9.6-12.0); Monocytes # 0.7 10*3/uL (0.11-0.8); Monocytes % 8.8 % (1.7-12.7); Neutrophils # 5.1 10*3/uL (1.4-7.4); Neutrophils % 63.9 % (38.7-73.9); Platelet Count 205 T/CUMM (130-400); Red Cell Distribution Width 15.9 % (9.3-17.3)
[2017-12-18] MEDS: metOLazone 2.5 MG TABLET PO SCH (09:24)
[2017-12-18] MEDS: ASPIRIN EC 81 MG TABLET PO SCH (09:24)
[2017-12-18] MEDS: EZETIMIBE 10 MG TABLET PO SCH (09:24)
[2017-12-18] MEDS: SEVELAMER CARBONATE 800 MG TABLET PO SCH ×3 (09:24→18:34)
[2017-12-18] MEDS: GABAPENTIN 100 MG CAPSULE PO SCH (09:24)
[2017-12-18] MEDS: ASCORBIC ACID 500 MG TABLET PO SCH ×3 (09:24→21:44)
[2017-12-18] MEDS: DOCUSATE SODIUM 100 MG CAPSULE PO SCH ×3 (09:24→21:52)
[2017-12-18] MEDS: MULTIVITAMIN (CENTRUM) TABLET PO SCH (09:25)
[2017-12-18] MEDS: PANTOPRAZOLE 40 MG TABLET PO SCH (09:25)
[2017-12-18] MEDS: FOLIC ACID 1 MG TABLET PO SCH (09:25)
[2017-12-18] MEDS: INSULIN GLARGINE 100 UNIT/ML SUBCUT SCH ×2 (09:35→21:45)
[2017-12-18 09:40] LABS: Albumin 2.5 G/DL (3.4-5.0); Bilirubin,Total 0.5 MG/DL (0.2-1.0); Calcium 9.1 MG/DL (8.5-10.1); Osmolality,Calculated 292.5 MOS/KG (273-304); Potassium 4.3 MMOL/L (3.5-5.1); Total Protein 7.4 G/DL (6.4-8.3)
[2017-12-18] MEDS: LEVOFLOXACIN 250 MG TABLET PO SCH (10:52)
[2017-12-18 20:31] LABS: Hepatitis B Surface Ab Result Negative; Hepatitis B Surface Ag Quant < 0.10 Index; Hepatitis B Surface Ag Result Negative (Negative)
[2017-12-18] MEDS: SIMVASTATIN 20 MG TABLET PO SCH (21:45)
[2017-12-18] MEDS: ACETAMINOPHEN 325 MG TABLET PO PRN (21:53)
[2017-12-19 06:02] LABS: Basophils % 0.3 % (0.0-0.8); Eosinophils # 0.7 10*3/uL (0.0-0.87); Eosinophils % 10.1 % (0.00-10.9); Hematocrit 24.2 VOL% (35.7-47.0); Hemoglobin 7.9 GM/DL (12.0-16.0); Immature Granulocytes % 0.4 %; Immature Granulocytes Absolute 0.03 #; Lymphocytes # 1.7 10*3/uL (1.4-4.0); Lymphocytes % 24.8 % (21.3-54.2); Mean Corpuscular HGB Conc 32.6 GM/DL (32-36); Mean Corpuscular Hemoglobin 31 PG (27-34); Mean Platelet Volume 10.6 FL (9.6-12.0); Monocytes # 0.7 10*3/uL (0.11-0.8); Monocytes % 10.6 % (1.7-12.7); Neutrophils # 3.6 10*3/uL (1.4-7.4); Neutrophils % 53.8 % (38.7-73.9); Platelet Count 211 T/CUMM (130-400); Red Blood Count 2.52 MC/CUMM (3.8-5.5); Red Cell Distribution Width 15.5 % (9.3-17.3); White Blood Count 6.7 T/CUMM (4-12)
[2017-12-19] MEDS: tiZANidine 4 MG TABLET PO SCH ×3 (06:12→17:15)
[2017-12-19 06:27] LABS: Calcium 8.9 MG/DL (8.5-10.1); Osmolality,Calculated 278.8 MOS/KG (273-304); Potassium 4.2 MMOL/L (3.5-5.1)
[2017-12-19] MEDS: INSULIN REGULAR 100 UNIT/ML SUBCUT SCH ×4 (08:32→21:31)
[2017-12-19] MEDS: GABAPENTIN 100 MG CAPSULE PO SCH (09:18)
[2017-12-19] MEDS: SEVELAMER CARBONATE 800 MG TABLET PO SCH ×3 (09:19→16:54)
[2017-12-19] MEDS: MULTIVITAMIN (CENTRUM) TABLET PO SCH (09:19)
[2017-12-19] MEDS: metOLazone 2.5 MG TABLET PO SCH (09:19)
[2017-12-19] MEDS: EZETIMIBE 10 MG TABLET PO SCH (09:19)
[2017-12-19] MEDS: ASCORBIC ACID 500 MG TABLET PO SCH ×3 (09:20→21:31)
[2017-12-19] MEDS: LEVOFLOXACIN 250 MG TABLET PO SCH (09:20)
[2017-12-19] MEDS: FOLIC ACID 1 MG TABLET PO SCH (09:21)
[2017-12-19] MEDS: ASPIRIN EC 81 MG TABLET PO SCH (09:21)
[2017-12-19] MEDS: PANTOPRAZOLE 40 MG TABLET PO SCH (09:21)
[2017-12-19] MEDS: hydrOXYzine HCL 25 MG TABLET PO PRN ×2 (09:26→17:14)
[2017-12-19] MEDS: INSULIN GLARGINE 100 UNIT/ML SUBCUT SCH ×2 (09:27→21:31)
[2017-12-19] MEDS: DOCUSATE SODIUM 100 MG CAPSULE PO SCH ×2 (09:27→21:31)
[2017-12-19 11:05] LABS: Hematocrit 24.8 VOL% (35.7-47.0); Hemoglobin 7.9 GM/DL (12.0-16.0)
[2017-12-19] MEDS: CARVEDILOL 6.25 MG TABLET PO SCH ×2 (13:30→16:54)
[2017-12-19] MEDS: SIMVASTATIN 20 MG TABLET PO SCH (21:31)
[2017-12-20] MEDS: tiZANidine 4 MG TABLET PO SCH ×4 (00:22→17:38)
[2017-12-20] MEDS: ACETAMINOPHEN 325 MG TABLET PO PRN ×2 (01:18→21:49)
[2017-12-20 06:36] LABS: Basophils % 0.6 % (0.0-0.8); Eosinophils # 0.7 10*3/uL (0.0-0.87); Eosinophils % 10.2 % (0.00-10.9); Hemoglobin 8.1 GM/DL (12.0-16.0); Immature Granulocytes % 0.8 %; Immature Granulocytes Absolute 0.06 #; Lymphocytes # 2.1 10*3/uL (1.4-4.0); Lymphocytes % 29.6 % (21.3-54.2); Mean Corpuscular HGB Conc 31.2 GM/DL (32-36); Mean Corpuscular Hemoglobin 31 PG (27-34); Mean Corpuscular Volume 98.5 FL (87-102); Mean Platelet Volume 10.7 FL (9.6-12.0); Monocytes # 0.8 10*3/uL (0.11-0.8); Monocytes % 11.5 % (1.7-12.7); Neutrophils # 3.4 10*3/uL (1.4-7.4); Neutrophils % 47.3 % (38.7-73.9); Platelet Count 232 T/CUMM (130-400); Red Blood Count 2.64 MC/CUMM (3.8-5.5); Red Cell Distribution Width 15.5 % (9.3-17.3); White Blood Count 7.1 T/CUMM (4-12)
[2017-12-20 07:08] LABS: Albumin 2.5 G/DL (3.4-5.0); Bilirubin,Total 0.4 MG/DL (0.2-1.0); Calcium 9.2 MG/DL (8.5-10.1); Osmolality,Calculated 290.5 MOS/KG (273-304); Potassium 4.9 MMOL/L (3.5-5.1); Total Protein 7.6 G/DL (6.4-8.3)
[2017-12-20] MEDS: INSULIN REGULAR 100 UNIT/ML SUBCUT SCH ×4 (08:49→21:48)
[2017-12-20] MEDS: SEVELAMER CARBONATE 800 MG TABLET PO SCH ×3 (09:04→17:38)
[2017-12-20] MEDS: MULTIVITAMIN (CENTRUM) TABLET PO SCH (09:05)
[2017-12-20] MEDS: EZETIMIBE 10 MG TABLET PO SCH (09:06)
[2017-12-20] MEDS: ASCORBIC ACID 500 MG TABLET PO SCH ×3 (09:06→21:49)
[2017-12-20] MEDS: LEVOFLOXACIN 250 MG TABLET PO SCH (09:07)
[2017-12-20] MEDS: metOLazone 2.5 MG TABLET PO SCH (09:07)
[2017-12-20] MEDS: ASPIRIN EC 81 MG TABLET PO SCH (09:07)
[2017-12-20] MEDS: PANTOPRAZOLE 40 MG TABLET PO SCH (09:07)
[2017-12-20] MEDS: FOLIC ACID 1 MG TABLET PO SCH (09:07)
[2017-12-20] MEDS: CARVEDILOL 6.25 MG TABLET PO SCH ×2 (09:07→17:38)
[2017-12-20] MEDS: GABAPENTIN 100 MG CAPSULE PO SCH (09:07)
[2017-12-20] MEDS: INSULIN GLARGINE 100 UNIT/ML SUBCUT SCH ×2 (10:08→21:48)
[2017-12-20] MEDS: DOCUSATE SODIUM 100 MG CAPSULE PO SCH ×2 (10:08→21:48)
[2017-12-20] MEDS: hydrOXYzine HCL 25 MG TABLET PO PRN (21:49)
[2017-12-20] MEDS: SIMVASTATIN 20 MG TABLET PO SCH (21:49)
[2017-12-21] MEDS: tiZANidine 4 MG TABLET PO SCH ×3 (00:26→12:17)
[2017-12-21 07:27] LABS: Basophils % 0.6 % (0.0-0.8); Eosinophils # 0.6 10*3/uL (0.0-0.87); Eosinophils % 9.6 % (0.00-10.9); Hematocrit 26.5 VOL% (35.7-47.0); Hemoglobin 8.5 GM/DL (12.0-16.0); Immature Granulocytes % 0.8 %; Immature Granulocytes Absolute 0.05 #; Lymphocytes # 1.6 10*3/uL (1.4-4.0); Lymphocytes % 24.8 % (21.3-54.2); Mean Corpuscular HGB Conc 32.1 GM/DL (32-36); Mean Corpuscular Hemoglobin 31 PG (27-34); Mean Corpuscular Volume 97.8 FL (87-102); Mean Platelet Volume 10.4 FL (9.6-12.0); Monocytes # 0.6 10*3/uL (0.11-0.8); Monocytes % 8.6 % (1.7-12.7); Neutrophils # 3.6 10*3/uL (1.4-7.4); Neutrophils % 55.6 % (38.7-73.9); Platelet Count 248 T/CUMM (130-400); Red Blood Count 2.71 MC/CUMM (3.8-5.5); Red Cell Distribution Width 15.4 % (9.3-17.3); White Blood Count 6.5 T/CUMM (4-12)
[2017-12-21 08:12] LABS: Alanine Aminotransferase 15 U/L (13-56); Albumin 2.9 G/DL (3.4-5.0); Alkaline Phosphatase 121 U/L (45-117); Aspartate Amino Transferase 8 U/L (0-37); Bilirubin,Total < 0.39 MG/DL (0.2-1.0); Blood Urea Nitrogen 72 MG/DL (7-18); Glucose 108 MG/DL (74-106); Osmolality,Calculated 294.8 MOS/KG (273-304); Potassium 5.3 MMOL/L (3.5-5.1); Sodium 137 MMOL/L (136-145); Total Protein 7.6 G/DL (6.4-8.3)
[2017-12-21] MEDS: MULTIVITAMIN (CENTRUM) TABLET PO SCH (08:27)
[2017-12-21] MEDS: ASCORBIC ACID 500 MG TABLET PO SCH ×2 (08:27→08:59)
[2017-12-21] MEDS: ASPIRIN EC 81 MG TABLET PO SCH (08:27)
[2017-12-21] MEDS: SEVELAMER CARBONATE 800 MG TABLET PO SCH ×2 (08:27→12:17)
[2017-12-21] MEDS: EZETIMIBE 10 MG TABLET PO SCH (08:28)
[2017-12-21] MEDS: metOLazone 2.5 MG TABLET PO SCH (08:28)
[2017-12-21] MEDS: FOLIC ACID 1 MG TABLET PO SCH (08:28)
[2017-12-21] MEDS: LEVOFLOXACIN 250 MG TABLET PO SCH (08:28)
[2017-12-21] MEDS: PANTOPRAZOLE 40 MG TABLET PO SCH (08:28)
[2017-12-21] MEDS: INSULIN GLARGINE 100 UNIT/ML SUBCUT SCH (08:28)
[2017-12-21] MEDS: CARVEDILOL 6.25 MG TABLET PO SCH (08:28)
[2017-12-21] MEDS: GABAPENTIN 100 MG CAPSULE PO SCH (08:28)
[2017-12-21] MEDS: INSULIN REGULAR 100 UNIT/ML SUBCUT SCH ×3 (08:47→17:42)
[2017-12-21] MEDS: DOCUSATE SODIUM 100 MG CAPSULE PO SCH (08:57)
[2017-12-21] MEDS: DICLOFENAC 1% GEL 100 GM TUBE TOP SCH ×2 (10:59→13:56)
[2017-12-21 16:17] VITALS: BP 135/67
== END 2017-12-21 17:01 | DRG 864 ==
LOC: EDBD → EDUNIT# → N.ED 17:43 → N.EDINP 20:04 → N.2E 21:19
PROVIDERS: ADMIT Family Medicine; ATTEND Family Medicine

== ENCOUNTER 2018-03-05 23:12 | Inpatient (IN) ==
[2018-03-05] MEDS ORDERED: SODIUM CHLORIDE 0.9% 1,000 ML IV STA (23:42)
[2018-03-05 23:52] LABS: Basophils % 0.2 % (0.0-0.8); Eosinophils # 0.2 10*3/uL (0.0-0.87); Eosinophils % 1.7 % (0.00-10.9); Hematocrit 33.2 VOL% (35.7-47.0); Hemoglobin 10.3 GM/DL (12.0-16.0); Immature Granulocytes % 0.7 %; Lymphocytes # 0.8 10*3/uL (1.4-4.0); Mean Corpuscular Hemoglobin 30 PG (27-34); Mean Corpuscular Volume 96.2 FL (87-102); Mean Platelet Volume 10.8 FL (9.6-12.0); Monocytes # 0.6 10*3/uL (0.11-0.8); Monocytes % 4.3 % (1.7-12.7); Neutrophils # 11.6 10*3/uL (1.4-7.4); Neutrophils % 87.1 % (38.7-73.9); Platelet Count 182 T/CUMM (130-400); Red Blood Count 3.45 MC/CUMM (3.8-5.5); Red Cell Distribution Width 15.6 % (9.3-17.3); White Blood Count 13.4 T/CUMM (4-12)
[2018-03-06 00:02] LABS: Alanine Aminotransferase 22 U/L (13-56); Albumin 3.2 G/DL (3.4-5.0); Alkaline Phosphatase 141 U/L (45-117); Aspartate Amino Transferase 13 U/L (0-37); Bilirubin,Total < 0.39 MG/DL (0.2-1.0); Blood Urea Nitrogen 62 MG/DL (7-18); Calcium 9.2 MG/DL (8.5-10.1); Glucose 170 MG/DL (74-106); Osmolality,Calculated 294.8 MOS/KG (273-304); Potassium 5.4 MMOL/L (3.5-5.1); Sodium 137 MMOL/L (136-145); Total Protein 8.5 G/DL (6.4-8.3)
[2018-03-06 00:12] LABS: Lactic Acid 2.4 MMOL/L (0.4-2.0)
[2018-03-06 01:19] LABS: Apearance,Urine CLOUDY (Clear); Bilirubin,Urine Negative (Negative); Blood, Urine Large mg/dL (Negative); Glucose,Urine (UA) >=500 mg/dL (Negative); Ketones,Urine Negative (Negative); Mucus,Urine Occasional /LPF (Occasional); Nitrite,Urine Negative (Negative); Protein,Urine 100 MG/DL; RBC,Urine 372 /HPF (0-4); Urine Color Yellow (Yellow); Urine Specific Gravity 1.006 (1.001-1.035); Urine Urobilinogen < 2.0 EU/DL (0.2-1.0); WBC,Urine 452 /HPF (0-6)
[2018-03-06] MEDS ORDERED: PIPERACILLIN/TAZOBACTAM 2,250 MG in SODIUM CHLORIDE 0.9% 100 ML IV STA (01:46)
[2018-03-06] MEDS ORDERED: PIPERACILLIN/TAZOBACTAM 3,375 MG in SODIUM CHLORIDE 0.9% 100 ML IV STA (01:56)
[2018-03-06] MEDS ORDERED: ONDANSETRON 4 MG/2 ML VIAL IV PRN (02:21)
[2018-03-06] MEDS ORDERED: IBUPROFEN 600 MG TABLET PO PRN (02:21)
[2018-03-06 04:42] LABS: Hemoglobin 8.8 GM/DL (12.0-16.0); Mean Corpuscular HGB Conc 30.3 GM/DL (32-36); Mean Corpuscular Hemoglobin 29 PG (27-34); Mean Corpuscular Volume 96.3 FL (87-102); Platelet Count 154 T/CUMM (130-400); Red Blood Count 3.01 MC/CUMM (3.8-5.5); Red Cell Distribution Width 15.8 % (9.3-17.3); White Blood Count 17.6 T/CUMM (4-12)
[2018-03-06 04:43] LABS: Basophils % 0.2 % (0.0-0.8); Eosinophils % 0.1 % (0.00-10.9); Immature Granulocytes % 1.3 %; Immature Granulocytes Absolute 0.22 #; Lymphocytes # 0.8 10*3/uL (1.4-4.0); Lymphocytes % 4.6 % (21.3-54.2); Mean Platelet Volume 10.6 FL (9.6-12.0); Monocytes # 0.9 10*3/uL (0.11-0.8); Monocytes % 5.2 % (1.7-12.7); Neutrophils # 15.6 10*3/uL (1.4-7.4); Neutrophils % 88.6 % (38.7-73.9)
[2018-03-06 05:10] LABS: Albumin 2.7 G/DL (3.4-5.0); Bilirubin,Total 0.5 MG/DL (0.2-1.0); Calcium 8.6 MG/DL (8.5-10.1); Osmolality,Calculated 295.8 MOS/KG (273-304); Potassium 4.8 MMOL/L (3.5-5.1); Total Protein 7.1 G/DL (6.4-8.3)
[2018-03-06] MEDS: SODIUM CHLORIDE 0.9% 1,000 ML IV SCH ×2 (06:16→18:07)
[2018-03-06 07:29] LABS: Band Neutrophils 6 % (0-10); Lymphocytes 5 % (20-55); Segmented Neutrophils 87 % (50-85); Total Cells Counted 100
[2018-03-06 07:30] LABS: Platelet Estimate Adequate
[2018-03-06] MEDS: PANTOPRAZOLE 40 MG TABLET PO SCH (09:19)
[2018-03-06] MEDS: DOCUSATE SODIUM 100 MG CAPSULE PO SCH ×2 (09:19→21:34)
[2018-03-06] MEDS: PIPERACILLIN/TAZOBACTAM 3,375 MG in SODIUM CHLORIDE 0.9% 100 ML IV SCH (13:51)
[2018-03-07] MEDS: PIPERACILLIN/TAZOBACTAM 3,375 MG in SODIUM CHLORIDE 0.9% 100 ML IV SCH ×2 (02:45→14:39)
[2018-03-07 04:13] LABS: Basophils % 0.2 % (0.0-0.8); Eosinophils # 0.4 10*3/uL (0.0-0.87); Eosinophils % 3.2 % (0.00-10.9); Hematocrit 30.7 VOL% (35.7-47.0); Hemoglobin 9.1 GM/DL (12.0-16.0); Immature Granulocytes % 0.5 %; Immature Granulocytes Absolute 0.06 #; Lymphocytes # 1.4 10*3/uL (1.4-4.0); Lymphocytes % 10.7 % (21.3-54.2); Mean Corpuscular HGB Conc 29.6 GM/DL (32-36); Mean Corpuscular Hemoglobin 29 PG (27-34); Mean Corpuscular Volume 99.4 FL (87-102); Mean Platelet Volume 11.1 FL (9.6-12.0); Monocytes # 0.6 10*3/uL (0.11-0.8); Monocytes % 4.6 % (1.7-12.7); Neutrophils # 10.4 10*3/uL (1.4-7.4); Neutrophils % 80.8 % (38.7-73.9); Platelet Count 158 T/CUMM (130-400); Red Blood Count 3.09 MC/CUMM (3.8-5.5); White Blood Count 12.8 T/CUMM (4-12)
[2018-03-07 04:46] LABS: Albumin 2.6 G/DL (3.4-5.0); Bilirubin,Total 0.4 MG/DL (0.2-1.0); Calcium 8.7 MG/DL (8.5-10.1); Osmolality,Calculated 298.5 MOS/KG (273-304); Potassium 5.3 MMOL/L (3.5-5.1); Total Protein 7.5 G/DL (6.4-8.3); Uric Acid 6.5 MG/DL (2.6-6.0)
[2018-03-07] MEDS: SODIUM CHLORIDE 0.9% 1,000 ML IV SCH ×2 (05:05→20:08)
[2018-03-07] MEDS: ACETAMINOPHEN 325 MG TABLET PO PRN (09:35)
[2018-03-07] MEDS: PANTOPRAZOLE 40 MG TABLET PO SCH (09:35)
[2018-03-07] MEDS: DOCUSATE SODIUM 100 MG CAPSULE PO SCH ×2 (09:41→22:08)
[2018-03-08] MEDS: PIPERACILLIN/TAZOBACTAM 3,375 MG in SODIUM CHLORIDE 0.9% 100 ML IV SCH ×2 (03:42→17:33)
[2018-03-08] MEDS ORDERED: hydrOXYzine HCL 25 MG TABLET PO PRN (07:56)
[2018-03-08] MEDS ORDERED: NON-FORMULARY MEDICATION (Nitroglycerin [Nitrostat] 0.3 MG) SL PRN (07:56)
[2018-03-08] MEDS ORDERED: ASPIRIN EC 81 MG TABLET PO SCH (09:00)
[2018-03-08] MEDS: INSULIN GLARGINE 100 UNIT/ML SUBCUT SCH ×2 (09:21→22:46)
[2018-03-08] MEDS: ASPIRIN EC 81 MG TABLET PO SCH (09:26)
[2018-03-08] MEDS: FOLIC ACID 1 MG TABLET PO SCH (09:26)
[2018-03-08] MEDS: tiZANidine 4 MG TABLET PO SCH ×3 (09:26→22:45)
[2018-03-08] MEDS: metOLazone 2.5 MG TABLET PO SCH (09:26)
[2018-03-08] MEDS: PANTOPRAZOLE 40 MG TABLET PO SCH (09:26)
[2018-03-08] MEDS: GABAPENTIN 100 MG CAPSULE PO SCH (09:26)
[2018-03-08] MEDS: EZETIMIBE 10 MG TABLET PO SCH (09:27)
[2018-03-08] MEDS: DICLOFENAC 1% GEL 100 GM TUBE TOP SCH ×4 (09:27→22:39)
[2018-03-08] MEDS: SKIN HEALING OINT (AQUAPHOR) 50 GM TUBE TOP PRN (09:27)
[2018-03-08] MEDS: DOCUSATE SODIUM 100 MG CAPSULE PO SCH ×2 (09:29→22:39)
[2018-03-08] MEDS: SEVELAMER CARBONATE 800 MG TABLET PO SCH ×3 (09:29→17:26)
[2018-03-08] MEDS: ACETAMINOPHEN 325 MG TABLET PO PRN (11:37)
[2018-03-08] MEDS: DESITIN 4OZ/NYSTATIN 15 GRAM MIXTURE PASTE TOP SCH ×2 (11:41→22:45)
[2018-03-08] MEDS: SIMVASTATIN 20 MG TABLET PO SCH (22:45)
[2018-03-09] MEDS: tiZANidine 4 MG TABLET PO SCH ×4 (03:11→22:22)
[2018-03-09] MEDS: PIPERACILLIN/TAZOBACTAM 3,375 MG in SODIUM CHLORIDE 0.9% 100 ML IV SCH (03:43)
[2018-03-09 03:45] LABS: Basophils % 0.3 % (0.0-0.8); Eosinophils # 0.5 10*3/uL (0.0-0.87); Eosinophils % 7.5 % (0.00-10.9); Hematocrit 27.7 VOL% (35.7-47.0); Hemoglobin 8.5 GM/DL (12.0-16.0); Immature Granulocytes % 1.2 %; Immature Granulocytes Absolute 0.08 #; Lymphocytes # 1.1 10*3/uL (1.4-4.0); Lymphocytes % 16.6 % (21.3-54.2); Mean Corpuscular HGB Conc 30.7 GM/DL (32-36); Mean Corpuscular Hemoglobin 30 PG (27-34); Mean Corpuscular Volume 96.2 FL (87-102); Mean Platelet Volume 10.7 FL (9.6-12.0); Monocytes # 0.5 10*3/uL (0.11-0.8); Monocytes % 6.9 % (1.7-12.7); Neutrophils # 4.6 10*3/uL (1.4-7.4); Neutrophils % 67.5 % (38.7-73.9); Platelet Count 138 T/CUMM (130-400); Red Blood Count 2.88 MC/CUMM (3.8-5.5); Red Cell Distribution Width 16.1 % (9.3-17.3); White Blood Count 6.8 T/CUMM (4-12)
[2018-03-09 04:15] LABS: Calcium 9.1 MG/DL (8.5-10.1); Osmolality,Calculated 289.8 MOS/KG (273-304); Potassium 4.5 MMOL/L (3.5-5.1)
[2018-03-09] MEDS: GABAPENTIN 100 MG CAPSULE PO SCH (08:42)
[2018-03-09] MEDS: SEVELAMER CARBONATE 800 MG TABLET PO SCH ×3 (08:42→17:24)
[2018-03-09] MEDS: ASPIRIN EC 81 MG TABLET PO SCH (08:43)
[2018-03-09] MEDS: metOLazone 2.5 MG TABLET PO SCH (08:43)
[2018-03-09] MEDS: INSULIN GLARGINE 100 UNIT/ML SUBCUT SCH ×2 (08:43→22:21)
[2018-03-09] MEDS: EZETIMIBE 10 MG TABLET PO SCH (08:43)
[2018-03-09] MEDS: FOLIC ACID 1 MG TABLET PO SCH (08:43)
[2018-03-09] MEDS: ACETAMINOPHEN 325 MG TABLET PO PRN (08:53)
[2018-03-09] MEDS: DOCUSATE SODIUM 100 MG CAPSULE PO SCH ×2 (09:15→22:21)
[2018-03-09] MEDS: DESITIN 4OZ/NYSTATIN 15 GRAM MIXTURE PASTE TOP SCH ×2 (09:17→22:22)
[2018-03-09] MEDS: DICLOFENAC 1% GEL 100 GM TUBE TOP SCH ×4 (09:17→22:22)
[2018-03-09] MEDS: PANTOPRAZOLE 40 MG TABLET PO SCH (09:17)
[2018-03-09] MEDS: SIMVASTATIN 20 MG TABLET PO SCH (22:22)
[2018-03-10] MEDS: tiZANidine 4 MG TABLET PO SCH ×4 (03:12→21:27)
[2018-03-10] MEDS: DESITIN 4OZ/NYSTATIN 15 GRAM MIXTURE PASTE TOP SCH ×2 (10:54→21:27)
[2018-03-10] MEDS: DOCUSATE SODIUM 100 MG CAPSULE PO SCH ×3 (10:54→21:29)
[2018-03-10] MEDS: INSULIN GLARGINE 100 UNIT/ML SUBCUT SCH ×2 (10:54→21:24)
[2018-03-10] MEDS: DICLOFENAC 1% GEL 100 GM TUBE TOP SCH ×4 (10:55→21:28)
[2018-03-10] MEDS ORDERED: ceFAZolin 2,000 MG in PREMIX 1 EACH IV ONE (13:16)
[2018-03-10] MEDS: FOLIC ACID 1 MG TABLET PO SCH (13:47)
[2018-03-10] MEDS: metOLazone 2.5 MG TABLET PO SCH (13:47)
[2018-03-10] MEDS: EZETIMIBE 10 MG TABLET PO SCH (13:47)
[2018-03-10] MEDS: GABAPENTIN 100 MG CAPSULE PO SCH (13:47)
[2018-03-10] MEDS: PANTOPRAZOLE 40 MG TABLET PO SCH (13:48)
[2018-03-10] MEDS: ASPIRIN EC 81 MG TABLET PO SCH (13:48)
[2018-03-10] MEDS: LEVOFLOXACIN 250 MG TABLET PO SCH (13:48)
[2018-03-10] MEDS: SEVELAMER CARBONATE 800 MG TABLET PO SCH ×3 (13:49→16:20)
[2018-03-10] MEDS: SIMVASTATIN 20 MG TABLET PO SCH (21:27)
[2018-03-11] MEDS: tiZANidine 4 MG TABLET PO SCH ×4 (02:51→21:31)
[2018-03-11 05:02] LABS: Osmolality,Calculated 290.8 MOS/KG (273-304); Potassium 4.4 MMOL/L (3.5-5.1)
[2018-03-11] MEDS ORDERED: BUPIVACAINE 0.25% /EPI 10 ML VIAL ONE (10:33)
[2018-03-11] MEDS ORDERED: LIDOCAINE 1%/EPI INJ 20 ML VIAL ONE (10:33)
[2018-03-11] MEDS ORDERED: HEPARIN 5,000 UNIT/1 ML VIAL ONE (10:33)
[2018-03-11] MEDS ORDERED: THROMBIN TOPICAL (RECOMBINANT) 5,000 UNIT VIAL TOP ONE (10:33)
[2018-03-11] MEDS ORDERED: ceFAZolin 1,000 MG VIAL ONE (11:11)
[2018-03-11] MEDS: DOCUSATE SODIUM 100 MG CAPSULE PO SCH ×2 (11:12→22:47)
[2018-03-11] MEDS: SEVELAMER CARBONATE 800 MG TABLET PO SCH ×3 (11:12→18:02)
[2018-03-11] MEDS: DICLOFENAC 1% GEL 100 GM TUBE TOP SCH ×3 (11:12→21:31)
[2018-03-11] MEDS: INSULIN GLARGINE 100 UNIT/ML SUBCUT SCH ×2 (11:13→21:31)
[2018-03-11] MEDS: SODIUM CHLORIDE 0.9% 250 ML IV SCH (11:22)
[2018-03-11] MEDS ORDERED: PROPOFOL 200 MG/20 ML VIAL IV ONE (13:06)
[2018-03-11] MEDS ORDERED: MIDAZOLAM 2 MG/2 ML VIAL ONE (13:07)
[2018-03-11] MEDS ORDERED: fentaNYL 100 MCG/2 ML VIAL ONE (13:07)
[2018-03-11] MEDS ORDERED: HEPARIN 10,000 UNIT/10 ML VIAL IV PRN (16:05)
[2018-03-11] MEDS: FOLIC ACID 1 MG TABLET PO SCH (18:03)
[2018-03-11] MEDS: EZETIMIBE 10 MG TABLET PO SCH (18:03)
[2018-03-11] MEDS: LEVOFLOXACIN 250 MG TABLET PO SCH (18:03)
[2018-03-11] MEDS: metOLazone 2.5 MG TABLET PO SCH (18:03)
[2018-03-11] MEDS: PANTOPRAZOLE 40 MG TABLET PO SCH (18:04)
[2018-03-11] MEDS: MOMETASONE 0.1% CREAM 15 GM TUBE TOP SCH (18:05)
[2018-03-11] MEDS: DESITIN 4OZ/NYSTATIN 15 GRAM MIXTURE PASTE TOP SCH ×2 (18:05→22:47)
[2018-03-11] MEDS: GABAPENTIN 100 MG CAPSULE PO SCH (18:05)
[2018-03-11] MEDS: ASPIRIN EC 81 MG TABLET PO SCH (18:05)
[2018-03-11] MEDS: SIMVASTATIN 20 MG TABLET PO SCH (21:31)
[2018-03-12] MEDS: SODIUM CHLORIDE 0.9% 250 ML IV SCH ×2 (02:57→12:23)
[2018-03-12] MEDS: tiZANidine 4 MG TABLET PO SCH ×4 (02:57→20:26)
[2018-03-12 05:10] LABS: Basophils % 0.3 % (0.0-0.8); Eosinophils # 0.7 10*3/uL (0.0-0.87); Eosinophils % 9.6 % (0.00-10.9); Hematocrit 28.6 VOL% (35.7-47.0); Immature Granulocytes % 1.3 %; Immature Granulocytes Absolute 0.09 #; Lymphocytes # 1.3 10*3/uL (1.4-4.0); Lymphocytes % 18.5 % (21.3-54.2); Mean Corpuscular HGB Conc 31.5 GM/DL (32-36); Mean Corpuscular Hemoglobin 30 PG (27-34); Mean Corpuscular Volume 93.8 FL (87-102); Mean Platelet Volume 10.4 FL (9.6-12.0); Monocytes # 0.6 10*3/uL (0.11-0.8); Monocytes % 8.2 % (1.7-12.7); Neutrophils # 4.3 10*3/uL (1.4-7.4); Neutrophils % 62.1 % (38.7-73.9); Platelet Count 189 T/CUMM (130-400); Red Blood Count 3.05 MC/CUMM (3.8-5.5); Red Cell Distribution Width 16.3 % (9.3-17.3)
[2018-03-12 05:31] LABS: Calcium 8.8 MG/DL (8.5-10.1); Osmolality,Calculated 282.5 MOS/KG (273-304); Potassium 4.1 MMOL/L (3.5-5.1)
[2018-03-12] MEDS: metOLazone 2.5 MG TABLET PO SCH (10:02)
[2018-03-12] MEDS: EZETIMIBE 10 MG TABLET PO SCH (10:02)
[2018-03-12] MEDS: DOCUSATE SODIUM 100 MG CAPSULE PO SCH ×2 (10:03→20:26)
[2018-03-12] MEDS: GABAPENTIN 100 MG CAPSULE PO SCH (10:03)
[2018-03-12] MEDS: ASPIRIN EC 81 MG TABLET PO SCH (10:03)
[2018-03-12] MEDS: SEVELAMER CARBONATE 800 MG TABLET PO SCH ×3 (10:03→16:22)
[2018-03-12] MEDS: FOLIC ACID 1 MG TABLET PO SCH (10:03)
[2018-03-12] MEDS: LEVOFLOXACIN 250 MG TABLET PO SCH (10:03)
[2018-03-12] MEDS: MOMETASONE 0.1% CREAM 15 GM TUBE TOP SCH (10:04)
[2018-03-12] MEDS: PANTOPRAZOLE 40 MG TABLET PO SCH (10:04)
[2018-03-12] MEDS: DICLOFENAC 1% GEL 100 GM TUBE TOP SCH ×4 (10:04→20:27)
[2018-03-12] MEDS: DESITIN 4OZ/NYSTATIN 15 GRAM MIXTURE PASTE TOP SCH ×3 (10:04→20:27)
[2018-03-12] MEDS: INSULIN GLARGINE 100 UNIT/ML SUBCUT SCH ×2 (10:12→20:26)
[2018-03-12] MEDS: ACETAMINOPHEN 325 MG TABLET PO PRN (20:26)
[2018-03-12] MEDS: SIMVASTATIN 20 MG TABLET PO SCH (20:27)
[2018-03-13] MEDS: SODIUM CHLORIDE 0.9% 250 ML IV SCH ×2 (02:04→15:33)
[2018-03-13] MEDS: tiZANidine 4 MG TABLET PO SCH ×3 (03:01→13:59)
[2018-03-13 05:49] LABS: Basophils % 0.3 % (0.0-0.8); Eosinophils # 0.8 10*3/uL (0.0-0.87); Eosinophils % 11.5 % (0.00-10.9); Hematocrit 28.6 VOL% (35.7-47.0); Hemoglobin 8.7 GM/DL (12.0-16.0); Immature Granulocytes % 1.9 %; Immature Granulocytes Absolute 0.13 #; Lymphocytes # 1.2 10*3/uL (1.4-4.0); Lymphocytes % 18.3 % (21.3-54.2); Mean Corpuscular HGB Conc 30.4 GM/DL (32-36); Mean Corpuscular Hemoglobin 29 PG (27-34); Mean Corpuscular Volume 96.6 FL (87-102); Mean Platelet Volume 10.2 FL (9.6-12.0); Monocytes # 0.6 10*3/uL (0.11-0.8); Monocytes % 9.2 % (1.7-12.7); Neutrophils % 58.8 % (38.7-73.9); Platelet Count 199 T/CUMM (130-400); Red Blood Count 2.96 MC/CUMM (3.8-5.5); Red Cell Distribution Width 16.4 % (9.3-17.3); White Blood Count 6.8 T/CUMM (4-12)
[2018-03-13 06:04] LABS: Calcium 9.1 MG/DL (8.5-10.1); Potassium 4.1 MMOL/L (3.5-5.1)
[2018-03-13 06:29] LABS: Anisocytosis 1+; Band Neutrophils 2 % (0-10); Eosinophils 12 % (0-10); Lymphocytes 25 % (20-55); Macrocytosis 1+; Platelet Estimate Normal; Polychromasia Slight; Segmented Neutrophils 57 % (50-85); Total Cells Counted 100
[2018-03-13] MEDS: SEVELAMER CARBONATE 800 MG TABLET PO SCH ×3 (08:28→16:30)
[2018-03-13] MEDS: GABAPENTIN 100 MG CAPSULE PO SCH (08:28)
[2018-03-13] MEDS: DOCUSATE SODIUM 100 MG CAPSULE PO SCH (08:29)
[2018-03-13] MEDS: EZETIMIBE 10 MG TABLET PO SCH (08:29)
[2018-03-13] MEDS: metOLazone 2.5 MG TABLET PO SCH (08:30)
[2018-03-13] MEDS: ASPIRIN EC 81 MG TABLET PO SCH (08:30)
[2018-03-13] MEDS: PANTOPRAZOLE 40 MG TABLET PO SCH (08:30)
[2018-03-13] MEDS: LEVOFLOXACIN 250 MG TABLET PO SCH (08:30)
[2018-03-13] MEDS: FOLIC ACID 1 MG TABLET PO SCH (08:30)
[2018-03-13] MEDS: INSULIN GLARGINE 100 UNIT/ML SUBCUT SCH (08:32)
[2018-03-13] MEDS: MOMETASONE 0.1% CREAM 15 GM TUBE TOP SCH (08:34)
[2018-03-13] MEDS: SKIN HEALING OINT (AQUAPHOR) 50 GM TUBE TOP PRN (08:34)
[2018-03-13] MEDS: DICLOFENAC 1% GEL 100 GM TUBE TOP SCH ×3 (08:34→16:33)
[2018-03-13] MEDS: DESITIN 4OZ/NYSTATIN 15 GRAM MIXTURE PASTE TOP SCH ×2 (08:35)
[2018-03-13 16:48] VITALS: BP 137/71
== END 2018-03-13 17:05 | DRG 853 ==
LOC: EDBD → EDUNIT# → N.ED 23:12 → N.EDINP 03-06 02:20 → N.TELES 03-06 02:44 → N.TELEN 03-06 02:44
PROVIDERS: ADMIT Family Medicine; ATTEND Family Medicine
PROC: VAVDCFI (2018-03-11 11:22)

== ENCOUNTER 2019-06-27 06:40 | Observation (INO) ==
[2019-06-27] MEDS ORDERED: ASPIRIN 325 MG TABLET PO STA (06:59)
[2019-06-27] MEDS ORDERED: ENOXAPARIN 100 MG/ML SYRINGE SUBCUT STA (06:59)
[2019-06-27] MEDS ORDERED: NITROGLYCERIN 2% OINT 1 INCH/GM PACK TOP STA (06:59)
[2019-06-27 07:19] LABS: Basophils % 0.2 % (0.0-0.8); Eosinophils # 0.4 10*3/uL (0.0-0.87); Eosinophils % 3.3 % (0.00-10.9); Hematocrit 24.3 VOL% (35.7-47.0); Hemoglobin 7.6 GM/DL (12.0-16.0); Immature Granulocytes % 0.5 %; Immature Granulocytes Absolute 0.05 #; Lymphocytes # 1.1 10*3/uL (1.4-4.0); Lymphocytes % 9.8 % (21.3-54.2); Mean Corpuscular HGB Conc 31.3 GM/DL (32-36); Mean Corpuscular Volume 97.2 FL (87-102); Mean Platelet Volume 10.7 FL (9.6-12.0); Monocytes % 5.5 % (1.7-12.7); Neutrophils % 80.7 % (38.7-73.9); Platelet Count 289 T/CUMM (130-400); Red Cell Distribution Width 15.8 % (9.3-17.3); White Blood Count 10.8 T/CUMM (4-12)
[2019-06-27] MEDS ORDERED: FUROSEMIDE 40 MG/4 ML VIAL IV STA (07:20)
[2019-06-27] MEDS ORDERED: ENOXAPARIN 120 MG/0.8 ML SYRINGE SUBCUT ONE (07:22)
[2019-06-27 07:28] LABS: Alanine Aminotransferase 22 U/L (13-56); Albumin 2.7 G/DL (3.4-5.0); Alkaline Phosphatase 131 U/L (45-117); Aspartate Amino Transferase 13 U/L (0-37); Bilirubin,Total < 0.39 MG/DL (0.2-1.0); Blood Urea Nitrogen 68 MG/DL (7-18); Calcium 9.3 MG/DL (8.5-10.1); Estimated Glom Filtration Rate 6 ML/MIN; Glucose 193 MG/DL (74-106); Osmolality,Calculated 294.1 MOS/KG (273-304); Total Protein 8.2 G/DL (6.4-8.3)
[2019-06-27 07:53] LABS: PT Patient Result 10.4 SECS (9.6-12.2); Partial Thromboplastin Time 28.5 SECS (20.8-36.0)
[2019-06-27 08:23] LABS: Barbiturates Screen,Urine Negative (Negative); Benzodiazepines Screen,Urine Negative (Negative); Cannabinoid Screen,Urine Negative (Negative); Opiate Screen,Urine Negative (Negative); Phencyclidine Screen,Urine Negative (Negative)
[2019-06-27 08:29] LABS: Amorphous Crystals,Urine Occasional /HPF (Few); Apearance,Urine Slightly Hazy (Clear); Bilirubin,Urine Negative (Negative); Blood, Urine Negative (Negative); Glucose,Urine (UA) 150 mg/dL (Negative); Ketones,Urine Negative (Negative); Nitrite,Urine Negative (Negative); Protein,Urine 100 MG/DL; RBC,Urine 13 /HPF (0-4); Renal Epithelial Cells,Urine Occasional /HPF (<1); Squamous Epithelial Cell,Urine Occasional /HPF (0-10); Urine Color Yellow (Yellow); Urine Urobilinogen < 2.0 EU/DL (0.2-1.0); WBC,Urine 103 /HPF (0-6)
[2019-06-27] MEDS ORDERED: ONDANSETRON 4 MG/2 ML VIAL IV PRN (09:14)
[2019-06-27] MEDS: DOCUSATE SODIUM 100 MG CAPSULE PO SCH ×2 (11:14→21:05)
[2019-06-27] MEDS: PANTOPRAZOLE 40 MG TABLET PO SCH (11:15)
[2019-06-27] MEDS ORDERED: NITROGLYCERIN SL 0.4 MG TABLET SL PRN (15:53)
[2019-06-27] MEDS ORDERED: hydrOXYzine HCL 25 MG TABLET PO PRN (17:42)
[2019-06-27] MEDS ORDERED: LIDOCAINE/PRILOCAINE CREAM 5 GM TUBE TOP SCH (18:00)
[2019-06-27] MEDS: ENOXAPARIN 30 MG/0.3 ML SYRINGE SUBCUT SCH (18:28)
[2019-06-27] MEDS ORDERED: AMINO ACIDS PROTEIN HYDROLYS PO SCH (21:00)
[2019-06-27] MEDS: INSULIN GLARGINE 100 UNIT/ML SUBCUT SCH (21:04)
[2019-06-27] MEDS: INSULIN LISPRO 100 UNIT/ML SUBCUT SCH (21:05)
[2019-06-27] MEDS: ACETAMINOPHEN 325 MG TABLET PO PRN (21:59)
[2019-06-28 05:27] LABS: Basophils % 0.6 % (0.0-0.8); Eosinophils # 0.3 10*3/uL (0.0-0.87); Eosinophils % 4.2 % (0.00-10.9); Hematocrit 23.5 VOL% (35.7-47.0); Hemoglobin 7.3 GM/DL (12.0-16.0); Immature Granulocytes % 0.4 %; Immature Granulocytes Absolute 0.03 #; Lymphocytes # 1.3 10*3/uL (1.4-4.0); Lymphocytes % 18.1 % (21.3-54.2); Mean Corpuscular HGB Conc 31.1 GM/DL (32-36); Mean Corpuscular Volume 97.9 FL (87-102); Mean Platelet Volume 10.6 FL (9.6-12.0); Monocytes % 7.8 % (1.7-12.7); Neutrophils % 68.9 % (38.7-73.9); Platelet Count 311 T/CUMM (130-400); Red Cell Distribution Width 15.8 % (9.3-17.3); White Blood Count 6.9 T/CUMM (4-12)
[2019-06-28 06:05] LABS: Albumin 2.6 G/DL (3.4-5.0); Bilirubin,Total 0.8 MG/DL (0.2-1.0); Calcium 9.3 MG/DL (8.5-10.1); Osmolality,Calculated 288.3 MOS/KG (273-304)
[2019-06-28 06:08] LABS: Risk Ratio 3.74; VLDL CHOLESTEROL 31.8 MG/DL
[2019-06-28] MEDS ORDERED: SODIUM CHLORIDE 0.9% 1,000 ML IV PRN ×2 (07:18→07:41)
[2019-06-28] MEDS ORDERED: MULTIVITAMIN (CENTRUM) TABLET PO SCH (08:00)
[2019-06-28] MEDS: INSULIN LISPRO 100 UNIT/ML SUBCUT SCH ×4 (08:36→21:39)
[2019-06-28] MEDS: BISOPROLOL 5 MG TABLET PO SCH (10:05)
[2019-06-28] MEDS: MULTIVITAMIN (CENTRUM) TABLET PO SCH (10:05)
[2019-06-28] MEDS: ASCORBIC ACID 500 MG TABLET PO SCH (10:06)
[2019-06-28] MEDS: metOLazone 2.5 MG TABLET PO SCH (10:06)
[2019-06-28] MEDS: PANTOPRAZOLE 40 MG TABLET PO SCH (10:06)
[2019-06-28] MEDS: ASPIRIN EC 81 MG TABLET PO SCH (10:06)
[2019-06-28] MEDS: DOCUSATE SODIUM 100 MG CAPSULE PO SCH ×2 (10:06→21:38)
[2019-06-28] MEDS: GABAPENTIN 100 MG CAPSULE PO SCH (10:06)
[2019-06-28] MEDS: LISINOPRIL 10 MG TABLET PO SCH (10:07)
[2019-06-28] MEDS: FOLIC ACID 1 MG TABLET PO SCH (10:07)
[2019-06-28] MEDS: SEVELAMER CARBONATE 800 MG TABLET PO SCH ×3 (10:07→16:51)
[2019-06-28] MEDS: INSULIN GLARGINE 100 UNIT/ML SUBCUT SCH ×2 (10:07→21:38)
[2019-06-28] MEDS: EZETIMIBE 10 MG TABLET PO SCH (10:07)
[2019-06-28] MEDS ORDERED: FUROSEMIDE 20 MG/2 ML VIAL IV PRN (11:16)
[2019-06-28] MEDS: ACETAMINOPHEN 325 MG TABLET PO PRN (12:51)
[2019-06-28] MEDS ORDERED: LIDOCAINE/PRILOCAINE CREAM 5 GM TUBE TOP SCH (13:30)
[2019-06-28] MEDS: ENOXAPARIN 30 MG/0.3 ML SYRINGE SUBCUT SCH (17:32)
[2019-06-28] MEDS: ATORVASTATIN 40 MG TABLET PO SCH (21:38)
[2019-06-29] MEDS: ACETAMINOPHEN 325 MG TABLET PO PRN ×2 (04:56→21:40)
[2019-06-29 05:55] LABS: Basophils % 0.4 % (0.0-0.8); Eosinophils # 0.2 10*3/uL (0.0-0.87); Eosinophils % 3.1 % (0.00-10.9); Hematocrit 29.9 VOL% (35.7-47.0); Immature Granulocytes % 0.6 %; Immature Granulocytes Absolute 0.05 #; Lymphocytes # 1.3 10*3/uL (1.4-4.0); Lymphocytes % 16.1 % (21.3-54.2); Mean Corpuscular HGB Conc 31.8 GM/DL (32-36); Mean Corpuscular Volume 94.6 FL (87-102); Mean Platelet Volume 10.4 FL (9.6-12.0); Monocytes % 7.5 % (1.7-12.7); Neutrophils % 72.3 % (38.7-73.9); Platelet Count 297 T/CUMM (130-400); Red Cell Distribution Width 17.2 % (9.3-17.3); White Blood Count 7.8 T/CUMM (4-12)
[2019-06-29 05:58] LABS: Hemoglobin 9.5 GM/DL (12.0-16.0); Red Blood Count 3.16 MC/CUMM (3.8-5.5)
[2019-06-29 08:53] LABS: Albumin 2.6 G/DL (3.4-5.0); Bilirubin,Total 0.4 MG/DL (0.2-1.0); Calcium 9.2 MG/DL (8.5-10.1); Osmolality,Calculated 281.1 MOS/KG (273-304); Total Protein 7.5 G/DL (6.4-8.3)
[2019-06-29] MEDS: INSULIN LISPRO 100 UNIT/ML SUBCUT SCH ×4 (09:02→21:41)
[2019-06-29] MEDS: LISINOPRIL 10 MG TABLET PO SCH (09:05)
[2019-06-29] MEDS: metOLazone 2.5 MG TABLET PO SCH (09:05)
[2019-06-29] MEDS: SEVELAMER CARBONATE 800 MG TABLET PO SCH ×3 (09:05→18:02)
[2019-06-29] MEDS: DOCUSATE SODIUM 100 MG CAPSULE PO SCH ×2 (09:06→22:32)
[2019-06-29] MEDS: FOLIC ACID 1 MG TABLET PO SCH (09:06)
[2019-06-29] MEDS: GABAPENTIN 100 MG CAPSULE PO SCH (09:06)
[2019-06-29] MEDS: MULTIVITAMIN (CENTRUM) TABLET PO SCH (09:06)
[2019-06-29] MEDS: EZETIMIBE 10 MG TABLET PO SCH (09:06)
[2019-06-29] MEDS: ASPIRIN EC 81 MG TABLET PO SCH (09:06)
[2019-06-29] MEDS: ASCORBIC ACID 500 MG TABLET PO SCH (09:06)
[2019-06-29] MEDS: PANTOPRAZOLE 40 MG TABLET PO SCH (09:06)
[2019-06-29] MEDS: INSULIN GLARGINE 100 UNIT/ML SUBCUT SCH ×2 (09:07→21:41)
[2019-06-29] MEDS: BISOPROLOL 5 MG TABLET PO SCH (09:09)
[2019-06-29] MEDS: ATORVASTATIN 40 MG TABLET PO SCH (21:40)
[2019-06-29] MEDS: ENOXAPARIN 30 MG/0.3 ML SYRINGE SUBCUT SCH (21:43)
[2019-06-30] MEDS: SEVELAMER CARBONATE 800 MG TABLET PO SCH ×2 (08:40→14:21)
[2019-06-30] MEDS: metOLazone 2.5 MG TABLET PO SCH (08:40)
[2019-06-30] MEDS: INSULIN LISPRO 100 UNIT/ML SUBCUT SCH ×2 (08:40→12:12)
[2019-06-30] MEDS: ASPIRIN EC 81 MG TABLET PO SCH (08:40)
[2019-06-30] MEDS: INSULIN GLARGINE 100 UNIT/ML SUBCUT SCH (08:40)
[2019-06-30] MEDS: MULTIVITAMIN (CENTRUM) TABLET PO SCH (08:40)
[2019-06-30] MEDS: GABAPENTIN 100 MG CAPSULE PO SCH (08:41)
[2019-06-30] MEDS: LISINOPRIL 10 MG TABLET PO SCH (08:41)
[2019-06-30] MEDS: DOCUSATE SODIUM 100 MG CAPSULE PO SCH (08:41)
[2019-06-30] MEDS: PANTOPRAZOLE 40 MG TABLET PO SCH (08:41)
[2019-06-30] MEDS: EZETIMIBE 10 MG TABLET PO SCH (08:41)
[2019-06-30] MEDS: ASCORBIC ACID 500 MG TABLET PO SCH (08:41)
[2019-06-30] MEDS: FOLIC ACID 1 MG TABLET PO SCH (08:41)
[2019-06-30] MEDS: BISOPROLOL 5 MG TABLET PO SCH (08:44)
[2019-06-30 11:28] VITALS: BP 113/83
== END 2019-06-30 15:15 ==
LOC: EDBD → EDUNIT# → N.ED 06:40 → N.EDINP 06:40 → N.2W 09:45 → N.2E 06-28 13:34
PROVIDERS: ADMIT Family Medicine; ATTEND Family Medicine

== ENCOUNTER 2020-05-20 04:05 | Inpatient (IN) ==
[2020-05-20 05:04] LABS: Basophils % 0.4 % (0.0-0.8); Eosinophils # 0.1 10*3/uL (0.0-0.87); Eosinophils % 0.8 % (0.00-10.9); Hematocrit 32.5 VOL% (35.7-47.0); Hemoglobin 10.3 GM/DL (12.0-16.0); Immature Granulocytes % 0.5 %; Immature Granulocytes Absolute 0.04 #; Lymphocytes # 0.9 10*3/uL (1.4-4.0); Mean Corpuscular HGB Conc 31.7 GM/DL (32-36); Mean Corpuscular Volume 97.6 FL (87-102); Mean Platelet Volume 11.1 FL (9.6-12.0); Monocytes % 6.4 % (1.7-12.7); Neutrophils % 80.9 % (38.7-73.9); Platelet Count 208 T/CUMM (130-400); Red Blood Count 3.33 MC/CUMM (3.8-5.5); Red Cell Distribution Width 18.4 % (9.3-17.3); White Blood Count 8.3 T/CUMM (4-12)
[2020-05-20 05:43] LABS: Albumin 3.1 G/DL (3.4-5.0); Bilirubin,Total 1.3 MG/DL (0.2-1.0); Calcium 9.8 MG/DL (8.5-10.1); Osmolality,Calculated 279.4 MOS/KG (273-304); Total Protein 8.7 G/DL (6.4-8.3)
[2020-05-20] MEDS ORDERED: hydrALAZINE 20 MG/1 ML VIAL IV STA (05:45)
[2020-05-20] MEDS ORDERED: INSULIN REGULAR 100 UNIT/ML IV STA (05:57)
[2020-05-20] MEDS ORDERED: DEXTROSE 50% 25 GM/50 ML VIAL IV STA (05:57)
[2020-05-20] MEDS ORDERED: DEXTROSE 50% 25 GM/50 ML SYRINGE IV ONE (06:05)
[2020-05-20] MEDS ORDERED: ACETAMINOPHEN 325 MG TABLET PO PRN (07:08)
[2020-05-20] MEDS ORDERED: ONDANSETRON 4 MG/2 ML VIAL IV PRN (07:08)
[2020-05-20] MEDS ORDERED: MORPHINE 4 MG/1 ML VIAL IV PRN (07:08)
[2020-05-20] MEDS ORDERED: SODIUM POLYSTYRENE SULFATE 15 GM/60 ML BOTTLE PO SCH (08:33)
[2020-05-20] MEDS ORDERED: SODIUM POLYSTYRENE SULFATE 15 GM/60 ML BOTTLE PO ONE (09:30)
[2020-05-20] MEDS ORDERED: hydrOXYzine HCL 25 MG TABLET PO PRN (09:48)
[2020-05-20] MEDS ORDERED: tiZANidine 4 MG TABLET PO PRN (09:48)
[2020-05-20] MEDS ORDERED: NITROGLYCERIN 0.3 MG SL PRN (09:48)
[2020-05-20] MEDS ORDERED: IBUPROFEN 200 MG TABLET PO PRN (09:48)
[2020-05-20] MEDS ORDERED: ALBUTEROL/IPRATROPIUM 3 ML NEB RESP TX PRN (10:07)
[2020-05-20] MEDS: ENOXAPARIN 30 MG/0.3 ML SYRINGE SUBCUT SCH (10:33)
[2020-05-20] MEDS: DOCUSATE SODIUM 100 MG CAPSULE PO SCH ×2 (10:33→21:56)
[2020-05-20] MEDS ORDERED: DEXTROSE 50% 25 GM/50 ML VIAL IV PRN (10:41)
[2020-05-20] MEDS ORDERED: GLUCAGON 1 MG VIAL IM PRN (10:41)
[2020-05-20] MEDS: SEVELAMER CARBONATE 800 MG TABLET PO SCH ×2 (12:08→17:02)
[2020-05-20] MEDS: ALBUTEROL 2.5 MG/3 ML NEB RESP TX SCH ×2 (13:40→19:07)
[2020-05-20] MEDS ORDERED: BENZOCAINE/MENTHOL LOZENGE 18/BOX PO PRN (20:31)
[2020-05-20] MEDS: PANTOPRAZOLE 40 MG TABLET PO SCH (21:56)
[2020-05-20] MEDS: INSULIN GLARGINE 100 UNIT/ML SUBCUT SCH (21:56)
[2020-05-21] MEDS: ALBUTEROL 2.5 MG/3 ML NEB RESP TX SCH ×4 (01:17→19:44)
[2020-05-21 09:25] LABS: Calcium 9.7 MG/DL (8.5-10.1); Osmolality,Calculated 286.8 MOS/KG (273-304)
[2020-05-21] MEDS: SEVELAMER CARBONATE 800 MG TABLET PO SCH ×3 (10:43→17:15)
[2020-05-21] MEDS: ENOXAPARIN 30 MG/0.3 ML SYRINGE SUBCUT SCH (13:20)
[2020-05-21] MEDS: MULTIVITAMIN (CENTRUM) TABLET PO SCH (13:21)
[2020-05-21] MEDS: BISOPROLOL 5 MG TABLET PO SCH (13:21)
[2020-05-21] MEDS: EZETIMIBE 10 MG TABLET PO SCH (13:22)
[2020-05-21] MEDS: ASPIRIN EC 81 MG TABLET PO SCH (13:22)
[2020-05-21] MEDS: ASCORBIC ACID 500 MG TABLET PO SCH (13:22)
[2020-05-21] MEDS: metOLazone 2.5 MG TABLET PO SCH (13:23)
[2020-05-21] MEDS: GABAPENTIN 100 MG CAPSULE PO SCH (13:23)
[2020-05-21] MEDS: lisinopriL 10 MG TABLET PO SCH (13:23)
[2020-05-21] MEDS: FOLIC ACID 1 MG TABLET PO SCH (13:23)
[2020-05-21] MEDS: INSULIN GLARGINE 100 UNIT/ML SUBCUT SCH ×2 (13:24→21:27)
[2020-05-21] MEDS: DOCUSATE SODIUM 100 MG CAPSULE PO SCH ×2 (13:24→21:29)
[2020-05-21] MEDS: LIDOCAINE/PRILOCAINE CREAM 5 GM TUBE TOP SCH (13:25)
[2020-05-21] MEDS: PANTOPRAZOLE 40 MG TABLET PO SCH (21:29)
[2020-05-22] MEDS: ALBUTEROL 2.5 MG/3 ML NEB RESP TX SCH ×4 (03:19→19:29)
[2020-05-22 05:32] LABS: Basophils % 0.5 % (0.0-0.8); Eosinophils # 0.1 10*3/uL (0.0-0.87); Eosinophils % 1.7 % (0.00-10.9); Hematocrit 28.6 VOL% (35.7-47.0); Hemoglobin 8.9 GM/DL (12.0-16.0); Immature Granulocytes % 0.5 %; Immature Granulocytes Absolute 0.03 #; Lymphocytes # 1.3 10*3/uL (1.4-4.0); Lymphocytes % 19.7 % (21.3-54.2); Mean Corpuscular HGB Conc 31.1 GM/DL (32-36); Mean Corpuscular Volume 99.3 FL (87-102); Mean Platelet Volume 10.5 FL (9.6-12.0); Monocytes % 9.4 % (1.7-12.7); Neutrophils % 68.2 % (38.7-73.9); Platelet Count 159 T/CUMM (130-400); Red Blood Count 2.88 MC/CUMM (3.8-5.5); Red Cell Distribution Width 18.1 % (9.3-17.3); White Blood Count 6.4 T/CUMM (4-12)
[2020-05-22 08:33] LABS: Albumin 2.9 G/DL (3.4-5.0); Bilirubin,Total 0.5 MG/DL (0.2-1.0); Calcium 9.7 MG/DL (8.5-10.1); Osmolality,Calculated 279.1 MOS/KG (273-304)
[2020-05-22] MEDS: BISOPROLOL 5 MG TABLET PO SCH (08:43)
[2020-05-22] MEDS: MULTIVITAMIN (CENTRUM) TABLET PO SCH (08:43)
[2020-05-22] MEDS: ASPIRIN EC 81 MG TABLET PO SCH (08:43)
[2020-05-22] MEDS: SEVELAMER CARBONATE 800 MG TABLET PO SCH ×3 (08:44→16:04)
[2020-05-22] MEDS: EZETIMIBE 10 MG TABLET PO SCH (08:44)
[2020-05-22] MEDS: FOLIC ACID 1 MG TABLET PO SCH (08:45)
[2020-05-22] MEDS: GABAPENTIN 100 MG CAPSULE PO SCH (08:45)
[2020-05-22] MEDS: lisinopriL 10 MG TABLET PO SCH (08:46)
[2020-05-22] MEDS: ASCORBIC ACID 500 MG TABLET PO SCH (08:46)
[2020-05-22] MEDS: metOLazone 2.5 MG TABLET PO SCH (08:47)
[2020-05-22] MEDS: ENOXAPARIN 30 MG/0.3 ML SYRINGE SUBCUT SCH (08:48)
[2020-05-22] MEDS: INSULIN GLARGINE 100 UNIT/ML SUBCUT SCH ×2 (09:34→21:46)
[2020-05-22] MEDS: DOCUSATE SODIUM 100 MG CAPSULE PO SCH ×2 (10:06→21:47)
[2020-05-22] MEDS: PANTOPRAZOLE 40 MG TABLET PO SCH (21:47)
[2020-05-23] MEDS: ALBUTEROL 2.5 MG/3 ML NEB RESP TX SCH ×3 (02:06→13:36)
[2020-05-23 06:38] LABS: Basophils % 0.5 % (0.0-0.8); Eosinophils # 0.3 10*3/uL (0.0-0.87); Eosinophils % 5.2 % (0.00-10.9); Hematocrit 27.6 VOL% (35.7-47.0); Hemoglobin 8.6 GM/DL (12.0-16.0); Immature Granulocytes % 0.5 %; Immature Granulocytes Absolute 0.03 #; Lymphocytes # 1.2 10*3/uL (1.4-4.0); Lymphocytes % 20.8 % (21.3-54.2); Mean Corpuscular HGB Conc 31.2 GM/DL (32-36); Mean Corpuscular Volume 98.6 FL (87-102); Mean Platelet Volume 10.4 FL (9.6-12.0); Platelet Count 157 T/CUMM (130-400); Red Cell Distribution Width 17.7 % (9.3-17.3); White Blood Count 5.9 T/CUMM (4-12)
[2020-05-23 06:58] LABS: Albumin 2.7 G/DL (3.4-5.0); Bilirubin,Total 0.4 MG/DL (0.2-1.0); Calcium 9.5 MG/DL (8.5-10.1); Total Protein 7.6 G/DL (6.4-8.3)
[2020-05-23] MEDS: LIDOCAINE/PRILOCAINE CREAM 5 GM TUBE TOP SCH (08:20)
[2020-05-23] MEDS: FOLIC ACID 1 MG TABLET PO SCH (08:42)
[2020-05-23] MEDS: ASCORBIC ACID 500 MG TABLET PO SCH (08:42)
[2020-05-23] MEDS: GABAPENTIN 100 MG CAPSULE PO SCH (08:42)
[2020-05-23] MEDS: ASPIRIN EC 81 MG TABLET PO SCH (08:42)
[2020-05-23] MEDS: BISOPROLOL 5 MG TABLET PO SCH (08:42)
[2020-05-23] MEDS: EZETIMIBE 10 MG TABLET PO SCH (08:42)
[2020-05-23] MEDS: MULTIVITAMIN (CENTRUM) TABLET PO SCH (08:43)
[2020-05-23] MEDS: ENOXAPARIN 30 MG/0.3 ML SYRINGE SUBCUT SCH (08:43)
[2020-05-23] MEDS: DOCUSATE SODIUM 100 MG CAPSULE PO SCH (08:43)
[2020-05-23] MEDS: metOLazone 2.5 MG TABLET PO SCH (08:43)
[2020-05-23] MEDS: lisinopriL 10 MG TABLET PO SCH (08:43)
[2020-05-23] MEDS: INSULIN GLARGINE 100 UNIT/ML SUBCUT SCH (08:49)
[2020-05-23] MEDS: SEVELAMER CARBONATE 800 MG TABLET PO SCH ×2 (08:54→12:08)
[2020-05-23 16:23] VITALS: BP 142/73
== END 2020-05-23 17:00 | disposition home or self-care (01) | DRG 640 ==
LOC: N.ED 04:05 → N.EDINP 07:08 → N.TELEN 08:33
PROVIDERS: ADMIT Family Medicine; ATTEND Family Medicine

== ENCOUNTER 2020-07-07 04:24 | Observation (INO) ==
[2020-07-07 05:20] LABS: Basophils % 0.5 % (0.0-0.8); Eosinophils # 0.1 10*3/uL (0.0-0.87); Eosinophils % 1.7 % (0.00-10.9); Hematocrit 32.2 VOL% (35.7-47.0); Hemoglobin 9.9 GM/DL (12.0-16.0); Immature Granulocytes % 0.5 %; Immature Granulocytes Absolute 0.04 #; Lymphocytes # 0.9 10*3/uL (1.4-4.0); Lymphocytes % 11.4 % (21.3-54.2); Mean Corpuscular HGB Conc 30.7 GM/DL (32-36); Mean Corpuscular Volume 92.3 FL (87-102); Mean Platelet Volume 11.1 FL (9.6-12.0); Monocytes % 7.3 % (1.7-12.7); Neutrophils % 78.6 % (38.7-73.9); Platelet Count 175 T/CUMM (130-400); Red Blood Count 3.49 MC/CUMM (3.8-5.5); Red Cell Distribution Width 17.4 % (9.3-17.3); White Blood Count 8.1 T/CUMM (4-12)
[2020-07-07 05:22] LABS: ABG Base Excess 2.8 MMOL/L (-2.5-2.5); ABG HCO3 26.9 MMOL/L (20-26); ABG Oxygen Saturation 96.1 % (95-100); ABG PCO2 47.6 MM HG (35-48); ABG PH 7.385 (7.35-7.45); ABG PO2 91.7 MM HG (80-95)
[2020-07-07 05:46] LABS: PT Patient Result 10.4 SECS (9.8-11.9)
[2020-07-07 05:48] LABS: Alanine Aminotransferase 19 U/L (13-56); Alkaline Phosphatase 131 U/L (45-117); Aspartate Amino Transferase 16 U/L (0-37); Bilirubin,Total < 0.39 MG/DL (0.2-1.0); Blood Urea Nitrogen 73 MG/DL (7-18); Calcium 10.1 MG/DL (8.5-10.1); Estimated Glom Filtration Rate 6 ML/MIN; Ferritin 1039.3 ng/ml (8-252); Glucose 186 MG/DL (74-106); Osmolality,Calculated 296.1 MOS/KG (273-304); Total Protein 8.1 G/DL (6.4-8.3)
[2020-07-07] MEDS ORDERED: ONDANSETRON 4 MG/2 ML VIAL IV PRN (05:58)
[2020-07-07] MEDS ORDERED: ACETAMINOPHEN 325 MG TABLET PO PRN (05:58)
[2020-07-07] MEDS ORDERED: PANTOPRAZOLE 40 MG VIAL IV SCH (09:00)
[2020-07-07] MEDS ORDERED: ONDANSETRON 4 MG TABLET PO PRN (10:56)
[2020-07-07] MEDS ORDERED: NITROGLYCERIN SL 0.4 MG TABLET SL PRN (10:56)
[2020-07-07] MEDS ORDERED: hydrOXYzine HCL 25 MG TABLET PO PRN (10:56)
[2020-07-07] MEDS ORDERED: ACETAMINOPHEN 500 MG TABLET PO PRN (10:56)
[2020-07-07] MEDS ORDERED: hydrALAZINE 20 MG/1 ML VIAL IV PRN (10:58)
[2020-07-07] MEDS ORDERED: GLUCAGON 1 MG VIAL IM PRN (11:00)
[2020-07-07] MEDS ORDERED: DEXTROSE 50% 25 GM/50 ML VIAL IV PRN (11:00)
[2020-07-07] MEDS: INSULIN LISPRO 100 UNIT/ML SUBCUT SCH ×3 (11:47→20:52)
[2020-07-07] MEDS: SEVELAMER CARBONATE 800 MG TABLET PO SCH ×2 (11:48→16:43)
[2020-07-07] MEDS: LEVOFLOXACIN INJ 250 MG in PREMIX 1 EACH IV SCH (12:23)
[2020-07-07] MEDS: DESITIN 4OZ/NYSTATIN 15 GRAM MIXTURE PASTE TOP SCH (20:53)
[2020-07-07] MEDS: PANTOPRAZOLE 40 MG TABLET PO SCH (20:54)
[2020-07-08 06:12] LABS: Basophils % 0.6 % (0.0-0.8); Eosinophils # 0.2 10*3/uL (0.0-0.87); Eosinophils % 4.4 % (0.00-10.9); Hematocrit 31.8 VOL% (35.7-47.0); Hemoglobin 9.8 GM/DL (12.0-16.0); Immature Granulocytes % 0.4 %; Immature Granulocytes Absolute 0.02 #; Lymphocytes # 1.3 10*3/uL (1.4-4.0); Lymphocytes % 25.1 % (21.3-54.2); Mean Corpuscular HGB Conc 30.8 GM/DL (32-36); Mean Corpuscular Volume 92.2 FL (87-102); Mean Platelet Volume 11.3 FL (9.6-12.0); Monocytes % 9.6 % (1.7-12.7); Neutrophils % 59.9 % (38.7-73.9); Platelet Count 145 T/CUMM (130-400); Red Blood Count 3.45 MC/CUMM (3.8-5.5); Red Cell Distribution Width 17.5 % (9.3-17.3)
[2020-07-08 06:41] LABS: Albumin 2.9 G/DL (3.4-5.0); Bilirubin,Total 0.7 MG/DL (0.2-1.0); Calcium 9.3 MG/DL (8.5-10.1); Osmolality,Calculated 286.8 MOS/KG (273-304); Total Protein 7.5 G/DL (6.4-8.3)
[2020-07-08] MEDS: FOLIC ACID 1 MG TABLET PO SCH (08:38)
[2020-07-08] MEDS: ASPIRIN EC 81 MG TABLET PO SCH (08:38)
[2020-07-08] MEDS: EZETIMIBE 10 MG TABLET PO SCH (08:38)
[2020-07-08] MEDS: GABAPENTIN 100 MG CAPSULE PO SCH (08:38)
[2020-07-08] MEDS: lisinopriL 10 MG TABLET PO SCH (08:39)
[2020-07-08] MEDS: DESITIN 4OZ/NYSTATIN 15 GRAM MIXTURE PASTE TOP SCH ×2 (08:39→20:37)
[2020-07-08] MEDS: MULTIVITAMIN (CENTRUM) TABLET PO SCH (08:39)
[2020-07-08] MEDS: metOLazone 2.5 MG TABLET PO SCH (08:39)
[2020-07-08] MEDS: SEVELAMER CARBONATE 800 MG TABLET PO SCH ×3 (08:39→17:15)
[2020-07-08] MEDS: ASCORBIC ACID 500 MG TABLET PO SCH (08:39)
[2020-07-08] MEDS: BISOPROLOL 5 MG TABLET PO SCH (08:39)
[2020-07-08] MEDS: INSULIN LISPRO 100 UNIT/ML SUBCUT SCH ×4 (09:18→20:36)
[2020-07-08] MEDS: PANTOPRAZOLE 40 MG TABLET PO SCH (20:36)
[2020-07-09] MEDS: ASCORBIC ACID 500 MG TABLET PO SCH (10:24)
[2020-07-09] MEDS: ASPIRIN EC 81 MG TABLET PO SCH (10:24)
[2020-07-09] MEDS: INSULIN LISPRO 100 UNIT/ML SUBCUT SCH ×4 (10:24→20:57)
[2020-07-09] MEDS: MULTIVITAMIN (CENTRUM) TABLET PO SCH (10:25)
[2020-07-09] MEDS: lisinopriL 10 MG TABLET PO SCH (10:25)
[2020-07-09] MEDS: BISOPROLOL 5 MG TABLET PO SCH (10:25)
[2020-07-09] MEDS: metOLazone 2.5 MG TABLET PO SCH (10:25)
[2020-07-09] MEDS: GABAPENTIN 100 MG CAPSULE PO SCH (10:26)
[2020-07-09] MEDS: SEVELAMER CARBONATE 800 MG TABLET PO SCH ×3 (10:26→17:47)
[2020-07-09] MEDS: EZETIMIBE 10 MG TABLET PO SCH (10:26)
[2020-07-09] MEDS: DESITIN 4OZ/NYSTATIN 15 GRAM MIXTURE PASTE TOP SCH ×2 (10:27→20:59)
[2020-07-09] MEDS: FOLIC ACID 1 MG TABLET PO SCH (10:27)
[2020-07-09] MEDS ORDERED: LIDOCAINE/PRILOCAINE CREAM 5 GM TUBE TOP SCH (10:56)
[2020-07-09] MEDS: LEVOFLOXACIN INJ 250 MG in PREMIX 1 EACH IV SCH (12:26)
[2020-07-09] MEDS: PANTOPRAZOLE 40 MG TABLET PO SCH (20:57)
[2020-07-10 07:40] LABS: Basophils % 0.5 % (0.0-0.8); Eosinophils # 0.3 10*3/uL (0.0-0.87); Eosinophils % 4.8 % (0.00-10.9); Hematocrit 30.1 VOL% (35.7-47.0); Hemoglobin 9.3 GM/DL (12.0-16.0); Immature Granulocytes % 0.5 %; Immature Granulocytes Absolute 0.03 #; Lymphocytes # 1.3 10*3/uL (1.4-4.0); Lymphocytes % 22.9 % (21.3-54.2); Mean Corpuscular HGB Conc 30.9 GM/DL (32-36); Mean Corpuscular Volume 90.9 FL (87-102); Mean Platelet Volume 10.9 FL (9.6-12.0); Monocytes % 10.1 % (1.7-12.7); Neutrophils % 61.2 % (38.7-73.9); Platelet Count 167 T/CUMM (130-400); Red Blood Count 3.31 MC/CUMM (3.8-5.5); Red Cell Distribution Width 17.2 % (9.3-17.3); White Blood Count 5.5 T/CUMM (4-12)
[2020-07-10 08:10] LABS: Albumin 2.8 G/DL (3.4-5.0); Bilirubin,Total 0.4 MG/DL (0.2-1.0); Calcium 9.5 MG/DL (8.5-10.1); Osmolality,Calculated 284.8 MOS/KG (273-304); Thyroid Stimulating Hormone 2.61 uIU/ml (0.358-3.74); Total Protein 8.1 G/DL (6.4-8.3)
[2020-07-10] MEDS: metOLazone 2.5 MG TABLET PO SCH (08:45)
[2020-07-10] MEDS: lisinopriL 10 MG TABLET PO SCH (08:45)
[2020-07-10] MEDS: INSULIN LISPRO 100 UNIT/ML SUBCUT SCH ×2 (08:45→13:43)
[2020-07-10] MEDS: ASPIRIN EC 81 MG TABLET PO SCH (08:45)
[2020-07-10] MEDS: SEVELAMER CARBONATE 800 MG TABLET PO SCH ×2 (08:46→11:27)
[2020-07-10] MEDS: FOLIC ACID 1 MG TABLET PO SCH (08:46)
[2020-07-10] MEDS: GABAPENTIN 100 MG CAPSULE PO SCH (08:46)
[2020-07-10] MEDS: BISOPROLOL 5 MG TABLET PO SCH (08:46)
[2020-07-10] MEDS: EZETIMIBE 10 MG TABLET PO SCH (08:46)
[2020-07-10] MEDS: MULTIVITAMIN (CENTRUM) TABLET PO SCH (08:46)
[2020-07-10] MEDS: ASCORBIC ACID 500 MG TABLET PO SCH (08:46)
[2020-07-10] MEDS: DESITIN 4OZ/NYSTATIN 15 GRAM MIXTURE PASTE TOP SCH (11:27)
[2020-07-10 12:11] VITALS: BP 120/58
== END 2020-07-10 15:49 ==
LOC: EDBD → EDUNIT# → N.ED 04:24 → N.EDINP 04:24 → N.TELEN 08:30
PROVIDERS: ADMIT Family Medicine; ATTEND Family Medicine

== ENCOUNTER 2020-09-16 10:46 | Inpatient (IN) ==
[2020-09-16] MEDS ORDERED: propofoL 200 MG/20 ML VIAL IV ONE (11:09)
[2020-09-16] MEDS ORDERED: ROCURONIUM 50 MG/5 ML VIAL IV ONE (11:09)
[2020-09-16] MEDS ORDERED: LIDOCAINE 2% 5 ML VIAL ONE (11:09)
[2020-09-16] MEDS ORDERED: fentaNYL 100 MCG/2 ML VIAL ONE (11:09)
[2020-09-16] MEDS ORDERED: ONDANSETRON 4 MG/2 ML VIAL ONE (11:09)
[2020-09-16] MEDS ORDERED: BUPIVACAINE MPF 0.25% 30 ML VIAL ONE (11:12)
[2020-09-16] MEDS ORDERED: HEPARIN 5,000 UNIT/1 ML VIAL ONE (11:12)
[2020-09-16] MEDS ORDERED: LIDOCAINE 1%/EPI INJ 20 ML VIAL ONE (11:12)
[2020-09-16 11:14] LABS: Basophils # 0.1 10*3/uL (0.0-0.2); Basophils % 0.7 % (0.0-0.8); Eosinophils # 0.3 10*3/uL (0.0-0.87); Eosinophils % 3.8 % (0.00-10.9); Hemoglobin 9.2 GM/DL (12.0-16.0); Immature Granulocytes % 0.7 %; Immature Granulocytes Absolute 0.06 #; Lymphocytes # 1.9 10*3/uL (1.4-4.0); Lymphocytes % 23.3 % (21.3-54.2); Mean Corpuscular HGB Conc 29.7 GM/DL (32-36); Mean Corpuscular Volume 96.3 FL (87-102); Mean Platelet Volume 11.2 FL (9.6-12.0); Monocytes % 8.9 % (1.7-12.7); Neutrophils % 62.6 % (38.7-73.9); Platelet Count 180 T/CUMM (130-400); Red Blood Count 3.22 MC/CUMM (3.8-5.5); Red Cell Distribution Width 19.8 % (9.3-17.3); White Blood Count 8.2 T/CUMM (4-12)
[2020-09-16] MEDS ORDERED: ACETAMINOPHEN 325 MG TABLET PO PRN (11:17)
[2020-09-16] MEDS ORDERED: METOCLOPRAMIDE 10 MG/2 ML VIAL ONE (11:27)
[2020-09-16] MEDS ORDERED: SUGAMMADEX 200 MG/2 ML VIAL IV ONE (11:29)
[2020-09-16 11:43] LABS: Alanine Aminotransferase 14 U/L (13-56); Albumin 2.9 G/DL (3.4-5.0); Alkaline Phosphatase 87 U/L (45-117); Aspartate Amino Transferase 12 U/L (0-37); Bilirubin,Total < 0.39 MG/DL (0.2-1.0); Blood Urea Nitrogen 74 MG/DL (7-18); Calcium 9.1 MG/DL (8.5-10.1); Carbon Dioxide 26 MMOL/L (21-32); Estimated Glom Filtration Rate 5 ML/MIN; Glucose 151 MG/DL (74-106); Osmolality,Calculated 297.8 MOS/KG (273-304); Potassium 5.3 MMOL/L (3.5-5.1); Sodium 137 MMOL/L (136-145); Total Protein 7.5 G/DL (5.0-7.5)
[2020-09-16] MEDS ORDERED: CLINDAMYCIN INJ 50 ML IV ONE (11:49)
[2020-09-16] MEDS ORDERED: SEVOFLURANE 1 UNIT/15 MINUTE INH ONE (12:08)
[2020-09-16] MEDS ORDERED: PHENYLEPHRINE 1 MG/10 ML SYRINGE IV ONE (12:08)
[2020-09-16] MEDS ORDERED: CALCIUM CHLORIDE 1,000 MG/10 ML VIAL IV ONE (12:08)
[2020-09-16] MEDS ORDERED: LABETALOL 20 MG/4 ML SYRINGE IV ONE (12:31)
[2020-09-16] MEDS ORDERED: NITROGLYCERIN SL 0.4 MG TABLET SL PRN (12:53)
[2020-09-16] MEDS: SEVELAMER CARBONATE 800 MG TABLET PO SCH ×2 (15:48→18:39)
[2020-09-16] MEDS: DOCUSATE SODIUM 100 MG CAPSULE PO SCH (20:41)
[2020-09-16] MEDS: DESITIN 4OZ/NYSTATIN 15 GRAM MIXTURE PASTE TOP SCH (20:42)
[2020-09-16] MEDS: INSULIN GLARGINE 100 UNIT/ML SUBCUT SCH (20:42)
[2020-09-17] MEDS: SODIUM CHLORIDE 0.45% 1,000 ML IV SCH ×2 (07:29→12:30)
[2020-09-17] MEDS: INSULIN GLARGINE 100 UNIT/ML SUBCUT SCH ×2 (08:02→20:25)
[2020-09-17] MEDS ORDERED: ZINC OXIDE 16% PASTE 57 GM TUBE TOP PRN (08:02)
[2020-09-17] MEDS ORDERED: hydrOXYzine HCL 25 MG TABLET PO PRN (08:02)
[2020-09-17] MEDS ORDERED: POLYVINYL ALCOHOL 1.4% OPH SOLN 15 ML BOTTLE BOTH EYES PRN (08:02)
[2020-09-17] MEDS: HYDROmorphone 2 MG/1 ML VIAL IV PRN ×2 (08:03→21:24)
[2020-09-17] MEDS: FOLIC ACID 1 MG TABLET PO SCH (08:04)
[2020-09-17 08:05] LABS: Basophils # 0.1 10*3/uL (0.0-0.2); Basophils % 0.7 % (0.0-0.8); Eosinophils # 0.2 10*3/uL (0.0-0.87); Eosinophils % 1.9 % (0.00-10.9); Hemoglobin 7.4 GM/DL (12.0-16.0); Immature Granulocytes % 0.4 %; Immature Granulocytes Absolute 0.03 #; Lymphocytes # 1.9 10*3/uL (1.4-4.0); Lymphocytes % 22.4 % (21.3-54.2); Mean Corpuscular HGB Conc 29.6 GM/DL (32-36); Mean Corpuscular Volume 96.2 FL (87-102); Mean Platelet Volume 11.7 FL (9.6-12.0); Monocytes % 11.8 % (1.7-12.7); Neutrophils % 62.8 % (38.7-73.9); Platelet Count 185 T/CUMM (130-400); Red Cell Distribution Width 20.4 % (9.3-17.3); White Blood Count 8.4 T/CUMM (4-12)
[2020-09-17] MEDS: GABAPENTIN 100 MG CAPSULE PO SCH (08:05)
[2020-09-17] MEDS: SEVELAMER CARBONATE 800 MG TABLET PO SCH ×3 (08:05→17:37)
[2020-09-17] MEDS: PANTOPRAZOLE 40 MG TABLET PO SCH (08:05)
[2020-09-17] MEDS: DOCUSATE SODIUM 100 MG CAPSULE PO SCH ×2 (08:05→20:25)
[2020-09-17] MEDS: ASCORBIC ACID 500 MG TABLET PO SCH (08:05)
[2020-09-17] MEDS: BISOPROLOL 5 MG TABLET PO SCH (08:06)
[2020-09-17] MEDS: EZETIMIBE 10 MG TABLET PO SCH (08:06)
[2020-09-17] MEDS: MULTIVITAMIN (CENTRUM) TABLET PO SCH (08:06)
[2020-09-17] MEDS ORDERED: GLUCAGON 1 MG VIAL IM PRN (08:09)
[2020-09-17] MEDS ORDERED: DEXTROSE 50% 25 GM/50 ML VIAL IV PRN (08:09)
[2020-09-17] MEDS: lisinopriL 10 MG TABLET PO SCH (09:00)
[2020-09-17] MEDS: CHOLECALCIFEROL 1,000 UNIT TABLET PO SCH (09:00)
[2020-09-17] MEDS: ASPIRIN EC 81 MG TABLET PO SCH (09:01)
[2020-09-17] MEDS: metOLazone 2.5 MG TABLET PO SCH (09:01)
[2020-09-17] MEDS: DESITIN 4OZ/NYSTATIN 15 GRAM MIXTURE PASTE TOP SCH ×2 (09:01→20:25)
[2020-09-17] MEDS: ONDANSETRON 4 MG/2 ML VIAL IV PRN (09:04)
[2020-09-17] MEDS: INSULIN LISPRO 100 UNIT/ML SUBCUT SCH ×3 (11:18→20:25)
[2020-09-17] MEDS ORDERED: HEPARIN 10,000 UNIT/10 ML VIAL IV SCH (12:00)
[2020-09-17] MEDS ORDERED: ALTEPLASE 2 MG VIAL IV ONE ×2 (13:00)
[2020-09-18] MEDS: INSULIN LISPRO 100 UNIT/ML SUBCUT SCH ×2 (07:39→11:05)
[2020-09-18] MEDS: HYDROmorphone 2 MG/1 ML VIAL IV PRN (07:40)
[2020-09-18] MEDS: INSULIN GLARGINE 100 UNIT/ML SUBCUT SCH (07:40)
[2020-09-18] MEDS: lisinopriL 10 MG TABLET PO SCH (08:05)
[2020-09-18] MEDS: ONDANSETRON 4 MG/2 ML VIAL IV PRN (08:13)
[2020-09-18] MEDS: MULTIVITAMIN (CENTRUM) TABLET PO SCH (09:12)
[2020-09-18] MEDS: SEVELAMER CARBONATE 800 MG TABLET PO SCH ×2 (09:12→12:10)
[2020-09-18] MEDS: BISOPROLOL 5 MG TABLET PO SCH (09:12)
[2020-09-18] MEDS: metOLazone 2.5 MG TABLET PO SCH (09:12)
[2020-09-18] MEDS: ASPIRIN EC 81 MG TABLET PO SCH (09:12)
[2020-09-18] MEDS: GABAPENTIN 100 MG CAPSULE PO SCH (09:12)
[2020-09-18] MEDS: CHOLECALCIFEROL 1,000 UNIT TABLET PO SCH (09:12)
[2020-09-18] MEDS: EZETIMIBE 10 MG TABLET PO SCH (09:12)
[2020-09-18] MEDS: ASCORBIC ACID 500 MG TABLET PO SCH (09:12)
[2020-09-18] MEDS: FOLIC ACID 1 MG TABLET PO SCH (09:12)
[2020-09-18] MEDS: DESITIN 4OZ/NYSTATIN 15 GRAM MIXTURE PASTE TOP SCH (09:12)
[2020-09-18] MEDS: PANTOPRAZOLE 40 MG TABLET PO SCH (09:12)
[2020-09-18] MEDS: DOCUSATE SODIUM 100 MG CAPSULE PO SCH (09:33)
[2020-09-18] MEDS: SODIUM CHLORIDE 0.45% 1,000 ML IV SCH (11:05)
[2020-09-18 11:46] VITALS: BP 165/73
== END 2020-09-18 14:40 | DRG 252 ==
LOC: EDUNIT# → EDBD → N.ED 10:46 → N.EDINP 11:17 → N.3E 11:24
PROVIDERS: ADMIT Family Medicine; ATTEND Family Medicine
PROC: VAVDCFI (2020-09-16 11:26)

== ENCOUNTER 2021-03-25 10:59 | Inpatient (IN) ==
[2021-03-25 11:56] LABS: Basophils % 0.3 % (0.0-0.8); Eosinophils % 0.2 % (0.00-10.9); Hematocrit 37.9 VOL% (35.7-47.0); Hemoglobin 11.9 GM/DL (12.0-16.0); Immature Granulocytes % 2.8 %; Immature Granulocytes Absolute 0.27 #; Lymphocytes # 0.5 10*3/uL (1.4-4.0); Lymphocytes % 5.4 % (21.3-54.2); Mean Corpuscular HGB Conc 31.4 GM/DL (32-36); Mean Corpuscular Volume 102.4 FL (87-102); Mean Platelet Volume 12.9 FL (9.6-12.0); Monocytes % 6.1 % (1.7-12.7); Neutrophils % 85.2 % (38.7-73.9); Platelet Count 116 T/CUMM (130-400); Red Cell Distribution Width 18.8 % (9.3-17.3); White Blood Count 9.8 T/CUMM (4-12)
[2021-03-25 12:45] LABS: Band Neutrophils 3 % (0-10); Lymphocytes 4 % (20-55); Segmented Neutrophils 82 % (50-85); Total Cells Counted 100
[2021-03-25 12:46] LABS: Hypochromasia Slight; Microcytosis Slight; Platelet Estimate Decreased
[2021-03-25 14:34] LABS: Albumin 2.5 G/DL (3.4-5.0); Bilirubin,Total 0.8 MG/DL (0.20-1.00); Calcium 9.3 MG/DL (8.5-10.1); Osmolality,Calculated 288.7 MOS/KG (273-304); Total Protein 7.2 G/DL (6.4-8.2)
[2021-03-25 14:37] LABS: Potassium 6.4 MMOL/L (3.5-5.1)
[2021-03-25] MEDS ORDERED: INSULIN REGULAR 100 UNIT/ML IV STA (14:48)
[2021-03-25] MEDS ORDERED: DEXTROSE 50% 25 GM/50 ML VIAL IV STA (14:48)
[2021-03-25] MEDS ORDERED: CALCIUM CHLORIDE 1,000 MG/10 ML SYRINGE IV STA (14:48)
[2021-03-25] MEDS ORDERED: SODIUM BICARBONATE 50 MEQ/50 ML VIAL IV STA (14:49)
[2021-03-25] MEDS ORDERED: HEPARIN 10,000 UNIT/10 ML VIAL IV ONE ×2 (16:00→17:00)
[2021-03-25] MEDS ORDERED: SODIUM CHLORIDE 0.9% 500 ML IV STA (18:44)
[2021-03-25] MEDS ORDERED: ONDANSETRON 4 MG/2 ML VIAL IV PRN (23:34)
[2021-03-25] MEDS ORDERED: ACETAMINOPHEN 325 MG TABLET PO PRN (23:34)
[2021-03-25] MEDS ORDERED: VANCOMYCIN INJ 1,000 MG in SODIUM CHLORIDE 0.9% 250 ML IV ONE (23:34)
[2021-03-26] MEDS ORDERED: GENTAMICIN INJ 120 MG/100 ML PREMIX IV ONE (01:00)
[2021-03-26] MEDS: DOCUSATE SODIUM 100 MG CAPSULE PO SCH ×2 (05:44→09:06)
[2021-03-26] MEDS ORDERED: NOREPINEPHRINE 4 MG/4 ML VIAL IV ONE (05:49)
[2021-03-26 06:21] LABS: ABG Base Excess -0.3 MMOL/L (-2.5-2.5); ABG HCO3 24.1 MMOL/L (20-26); ABG Oxygen Saturation 96.7 % (95-100); ABG PCO2 32.5 MM HG (35-48); ABG PH 7.455 (7.35-7.45); ABG PO2 88.6 MM HG (80-95); ABG TCO2 20.4 MMOL/L (23-27); Allen Test Positive
[2021-03-26] MEDS: NOREPINEPHRINE 8 MG in SODIUM CHLORIDE 0.9% 242 ML IV PRN (06:45)
[2021-03-26] MEDS ORDERED: SODIUM CHLORIDE 0.9% 1,000 ML IV ONE (07:40)
[2021-03-26] MEDS ORDERED: PANTOPRAZOLE 40 MG TABLET PO SCH (09:00)
[2021-03-26] MEDS: HYDROCORTISONE 100 MG VIAL IV SCH ×2 (09:01→16:40)
[2021-03-26] MEDS: PANTOPRAZOLE 40 MG VIAL IV SCH (09:37)
[2021-03-26 10:16] LABS: Basophils % 0.3 % (0.0-0.8); Eosinophils % 0.1 % (0.00-10.9); Hematocrit 35.2 VOL% (35.7-47.0); Hemoglobin 10.9 GM/DL (12.0-16.0); Immature Granulocytes % 2.1 %; Immature Granulocytes Absolute 0.22 #; Lymphocytes # 0.5 10*3/uL (1.4-4.0); Lymphocytes % 5.2 % (21.3-54.2); Mean Corpuscular Volume 101.7 FL (87-102); Mean Platelet Volume 12.3 FL (9.6-12.0); Monocytes % 6.4 % (1.7-12.7); Neutrophils % 85.9 % (38.7-73.9); Platelet Count 107 T/CUMM (130-400); Red Blood Count 3.46 MC/CUMM (3.8-5.5); White Blood Count 10.5 T/CUMM (4-12)
[2021-03-26 10:47] LABS: Calcium 9.3 MG/DL (8.5-10.1); Osmolality,Calculated 286.4 MOS/KG (273-304); Potassium 5.8 MMOL/L (3.5-5.1)
[2021-03-26 11:09] LABS: Band Neutrophils 3 % (0-10); Lymphocytes 4 % (20-55); Platelet Estimate Decreased; Segmented Neutrophils 87 % (50-85); Total Cells Counted 100
[2021-03-26 11:10] LABS: Hypochromasia Slight; Microcytosis Slight
[2021-03-26] MEDS ORDERED: HEPARIN 5,000 UNIT/1 ML VIAL IV ONE (13:00)
[2021-03-26] MEDS ORDERED: HEPARIN 10,000 UNIT/10 ML VIAL IV ONE (15:00)
[2021-03-26] MEDS: DESITIN 4OZ/NYSTATIN 15 GRAM MIXTURE PASTE TOP SCH ×2 (15:23→21:46)
[2021-03-26] MEDS ORDERED: DEXTROSE 50% 25 GM/50 ML VIAL IV ONE (17:20)
[2021-03-26] MEDS ORDERED: INSULIN REGULAR 100 UNIT/ML IV ONE (17:20)
[2021-03-26] MEDS ORDERED: CALCIUM GLUCONATE 1,000 MG in SODIUM CHLORIDE 0.9% 100 ML IV ONE (17:20)
[2021-03-26] MEDS: ACYCLOVIR INJ 500 MG in SODIUM CHLORIDE 0.9% 100 ML IV SCH (18:24)
[2021-03-26] MEDS ORDERED: VANCOMYCIN INJ 2,250 MG in SODIUM CHLORIDE 0.9% 500 ML IV ONE (20:00)
[2021-03-27] MEDS: HYDROCORTISONE 100 MG VIAL IV SCH ×4 (00:36→23:50)
[2021-03-27 05:53] LABS: Basophils % 0.3 % (0.0-0.8); Eosinophils # 0.5 10*3/uL (0.0-0.87); Eosinophils % 5.1 % (0.00-10.9); Hematocrit 33.7 VOL% (35.7-47.0); Hemoglobin 10.5 GM/DL (12.0-16.0); Immature Granulocytes % 7.4 %; Immature Granulocytes Absolute 0.72 #; Lymphocytes # 0.7 10*3/uL (1.4-4.0); Mean Corpuscular HGB Conc 31.2 GM/DL (32-36); Mean Corpuscular Volume 101.5 FL (87-102); Mean Platelet Volume 12.3 FL (9.6-12.0); Monocytes % 5.8 % (1.7-12.7); Neutrophils % 74.4 % (38.7-73.9); Platelet Count 100 T/CUMM (130-400); Red Blood Count 3.32 MC/CUMM (3.8-5.5); Red Cell Distribution Width 19.2 % (9.3-17.3); White Blood Count 9.8 T/CUMM (4-12)
[2021-03-27 06:07] LABS: Calcium 9.9 MG/DL (8.5-10.1); Osmolality,Calculated 299.1 MOS/KG (273-304)
[2021-03-27 06:09] LABS: Potassium 6.1 MMOL/L (3.5-5.1)
[2021-03-27 06:34] LABS: Band Neutrophils 2 % (0-10); Lymphocytes 3 % (20-55); Platelet Estimate Decreased; Segmented Neutrophils 88 % (50-85); Total Cells Counted 100
[2021-03-27] MEDS: DESITIN 4OZ/NYSTATIN 15 GRAM MIXTURE PASTE TOP SCH ×2 (08:18→21:40)
[2021-03-27] MEDS: PANTOPRAZOLE 40 MG VIAL IV SCH (08:21)
[2021-03-27] MEDS: NOREPINEPHRINE 8 MG in SODIUM CHLORIDE 0.9% 242 ML IV PRN (08:22)
[2021-03-27 08:44] LABS: INR 1.1; PT Patient Result 12.5 SECS (10.5-12.0)
[2021-03-27] MEDS ORDERED: GENTAMICIN INJ 80 MG/50 ML PREMIX IV SCH (12:30)
[2021-03-27 14:40] LABS: Appearance,CSF Clear; Red Blood Cell,CSF 297 C/CUMM; White Blood Cell,CSF 2 C/CUMM
[2021-03-27 14:43] LABS: Glucose,CSF 156 MG/DL (40-70)
[2021-03-27 15:15] LABS: Lymphocytes,CSF 6 %; Monocytes,CSF 3 %; Neutrophils,CSF 91 %
[2021-03-27] MEDS ORDERED: ALTEPLASE 2 MG VIAL IV ONE (15:39)
[2021-03-27] MEDS ORDERED: VANCOMYCIN INJ 750 MG in SODIUM CHLORIDE 0.9% 250 ML IV PRN (17:00)
[2021-03-27] MEDS ORDERED: VANCOMYCIN INJ 750 MG in SODIUM CHLORIDE 0.9% 250 ML IV ONE (17:00)
[2021-03-27] MEDS ORDERED: SODIUM POLYSTYRENE SULFATE 15 GM/60 ML BOTTLE PO ONE (17:17)
[2021-03-27] MEDS: ACYCLOVIR INJ 500 MG in SODIUM CHLORIDE 0.9% 100 ML IV SCH (17:34)
[2021-03-27] MEDS ORDERED: INSULIN REGULAR 100 UNIT/ML IV ONE (17:48)
[2021-03-27] MEDS ORDERED: CALCIUM GLUCONATE 1,000 MG in SODIUM CHLORIDE 0.9% 100 ML IV ONE (17:49)
[2021-03-27] MEDS ORDERED: DEXTROSE 50% 25 GM/50 ML VIAL IV ONE (17:50)
[2021-03-27] MEDS ORDERED: INSULIN GLARGINE 100 UNIT/ML SUBCUT SCH (21:00)
[2021-03-28 07:09] LABS: Basophils % 0.2 % (0.0-0.8); Hematocrit 32.3 VOL% (35.7-47.0); Hemoglobin 9.9 GM/DL (12.0-16.0); Immature Granulocytes % 2.6 %; Immature Granulocytes Absolute 0.39 #; Lymphocytes # 0.7 10*3/uL (1.4-4.0); Lymphocytes % 4.8 % (21.3-54.2); Mean Corpuscular HGB Conc 30.7 GM/DL (32-36); Mean Corpuscular Volume 100.9 FL (87-102); Mean Platelet Volume 13.9 FL (9.6-12.0); Monocytes % 4.8 % (1.7-12.7); NRBC # 0.02 10*3/uL; Neutrophils % 87.6 % (38.7-73.9); Platelet Count 62 T/CUMM (130-400); Red Cell Distribution Width 19.4 % (9.3-17.3); White Blood Count 15.1 T/CUMM (4-12)
[2021-03-28 07:25] LABS: Calcium 10.2 MG/DL (8.5-10.1); Osmolality,Calculated 321.7 MOS/KG (273-304); Potassium 5.6 MMOL/L (3.5-5.1)
[2021-03-28 07:29] LABS: Band Neutrophils 1 % (0-10); Hypochromasia 1+; Lymphocytes 3 % (20-55); Microcytosis 1+; Platelet Estimate Decreased; Segmented Neutrophils 92 % (50-85); Total Cells Counted 100
[2021-03-28] MEDS: PANTOPRAZOLE 40 MG VIAL IV SCH (08:16)
[2021-03-28] MEDS: HYDROCORTISONE 100 MG VIAL IV SCH ×2 (08:16→16:45)
[2021-03-28] MEDS: DESITIN 4OZ/NYSTATIN 15 GRAM MIXTURE PASTE TOP SCH ×2 (08:16→21:55)
[2021-03-28] MEDS ORDERED: CLINDAMYCIN INJ 900 MG/50 ML PREMIX IV ONE (08:21)
[2021-03-28] MEDS: NOREPINEPHRINE 8 MG in SODIUM CHLORIDE 0.9% 242 ML IV PRN ×2 (08:46→19:15)
[2021-03-28] MEDS ORDERED: BUPIVACAINE MPF 0.25% 30 ML VIAL ONE (08:49)
[2021-03-28] MEDS ORDERED: HEPARIN 5,000 UNIT/1 ML VIAL ONE (08:50)
[2021-03-28] MEDS ORDERED: LIDOCAINE 1%/EPI INJ 20 ML VIAL ONE (08:50)
[2021-03-28] MEDS ORDERED: TISSUE ADHESIVE 1 EACH APPLICATOR TOP ONE (08:50)
[2021-03-28] MEDS ORDERED: INSULIN GLARGINE 100 UNIT/ML SUBCUT SCH ×2 (09:00→21:00)
[2021-03-28] MEDS ORDERED: propofoL 200 MG/20 ML VIAL IV ONE (09:00)
[2021-03-28] MEDS ORDERED: KETAMINE 500 MG/10 ML VIAL ONE (09:00)
[2021-03-28] MEDS ORDERED: DEXTROSE 50% 25 GM/50 ML VIAL IV PRN (09:05)
[2021-03-28] MEDS ORDERED: GLUCAGON 1 MG VIAL IM PRN (09:05)
[2021-03-28] MEDS ORDERED: VALPROIC ACID INJ 1,000 MG in SODIUM CHLORIDE 0.9% 100 ML IV ONE (10:00)
[2021-03-28] MEDS ORDERED: GLYCOPYRROLATE 0.4 MG/2 ML VIAL ONE (10:14)
[2021-03-28 11:05] VITALS: BP 115/34
[2021-03-28] MEDS: INSULIN LISPRO 100 UNIT/ML SUBCUT SCH ×3 (11:26→22:01)
[2021-03-28] MEDS: FAMOTIDINE 20 MG/2 ML VIAL IV SCH (11:27)
[2021-03-28] MEDS ORDERED: HEPARIN 10,000 UNIT/10 ML VIAL IV SCH (15:00)
[2021-03-28] MEDS: METOPROLOL TARTRATE 5 MG/5 ML VIAL IV SCH ×3 (16:35→17:01)
[2021-03-28] MEDS ORDERED: VANCOMYCIN INJ 750 MG in SODIUM CHLORIDE 0.9% 250 ML IV ONE (17:00)
[2021-03-28] MEDS: ACYCLOVIR INJ 500 MG in SODIUM CHLORIDE 0.9% 100 ML IV SCH (17:03)
[2021-03-28] MEDS: VALPROIC ACID INJ 500 MG in SODIUM CHLORIDE 0.9% 100 ML IV SCH (17:04)
[2021-03-28] MEDS ORDERED: DIGOXIN 0.5 MG/2 ML AMP IV STA (17:18)
[2021-03-28] MEDS ORDERED: AMIODARONE 150 MG/3 ML VIAL ONE (17:28)
[2021-03-28] MEDS ORDERED: AMIODARONE 450 MG/9 ML VIAL IV ONE (17:28)
[2021-03-28] MEDS ORDERED: AMIODARONE INJ 150 MG in DEXTROSE 5% 100 ML IV ONE (17:29)
[2021-03-28] MEDS ORDERED: AMIODARONE INJ 450 MG in DEXTROSE 5% 241 ML IV SCH (17:30)
[2021-03-28] MEDS ORDERED: DIGOXIN 0.5 MG/2 ML AMP IV ONE (18:15)
[2021-03-29] MEDS: HYDROCORTISONE 100 MG VIAL IV SCH ×4 (00:30→20:38)
[2021-03-29] MEDS: AMIODARONE INJ 450 MG in DEXTROSE 5% 241 ML IV SCH ×4 (02:10→22:58)
[2021-03-29] MEDS: VALPROIC ACID INJ 500 MG in SODIUM CHLORIDE 0.9% 100 ML IV SCH ×3 (02:12→17:18)
[2021-03-29 06:00] LABS: Basophils % 0.2 % (0.0-0.8); Hemoglobin 10.2 GM/DL (12.0-16.0); Immature Granulocytes % 6.3 %; Immature Granulocytes Absolute 1.15 #; Lymphocytes # 2.1 10*3/uL (1.4-4.0); Lymphocytes % 11.5 % (21.3-54.2); Mean Corpuscular HGB Conc 31.9 GM/DL (32-36); Mean Corpuscular Volume 97.3 FL (87-102); Monocytes % 6.7 % (1.7-12.7); NRBC # 0.06 10*3/uL; Neutrophils % 75.3 % (38.7-73.9); Platelet Count 55 T/CUMM (130-400); Red Blood Count 3.29 MC/CUMM (3.8-5.5); Red Cell Distribution Width 19.5 % (9.3-17.3); White Blood Count 18.2 T/CUMM (4-12)
[2021-03-29 06:21] LABS: Potassium 4.8 MMOL/L (3.5-5.1)
[2021-03-29 06:23] LABS: Band Neutrophils 2 % (0-10); Lymphocytes 8 % (20-55); Nucleated Red Blood Cells 1 (0-5); Platelet Estimate Decreased; Segmented Neutrophils 84 % (50-85); Total Cells Counted 100
[2021-03-29] MEDS ORDERED: INSULIN GLARGINE 100 UNIT/ML SUBCUT SCH ×2 (09:00→21:00)
[2021-03-29] MEDS: INSULIN GLARGINE 100 UNIT/ML SUBCUT SCH (09:26)
[2021-03-29] MEDS: INSULIN LISPRO 100 UNIT/ML SUBCUT SCH ×4 (09:27→20:36)
[2021-03-29] MEDS: FAMOTIDINE 20 MG/2 ML VIAL IV SCH (09:27)
[2021-03-29] MEDS: DESITIN 4OZ/NYSTATIN 15 GRAM MIXTURE PASTE TOP SCH ×2 (09:28→20:38)
[2021-03-29 10:28] LABS: ABG Base Excess -4.3 MMOL/L (-2.5-2.5); ABG HCO3 20.8 MMOL/L (20-26); ABG Oxygen Saturation 96.1 % (95-100); ABG PCO2 24.8 MM HG (35-48); ABG PH 7.472 (7.35-7.45); ABG PO2 80.9 MM HG (80-95); ABG TCO2 16.5 MMOL/L (23-27)
[2021-03-29] MEDS ORDERED: VANCOMYCIN INJ 500 MG in SODIUM CHLORIDE 0.9% 100 ML IV PRN (12:30)
[2021-03-29 12:36] LABS: VDRL Spinal Fluid Negative (Negative)
[2021-03-29 16:14] LABS: ABG Base Excess -3.3 MMOL/L (-2.5-2.5); ABG HCO3 21.7 MMOL/L (20-26); ABG Oxygen Saturation 96.7 % (95-100); ABG PCO2 22.6 MM HG (35-48); ABG PH 7.514 (7.35-7.45); ABG PO2 83.9 MM HG (80-95); ABG TCO2 16.2 MMOL/L (23-27)
[2021-03-29] MEDS: ACYCLOVIR INJ 500 MG in SODIUM CHLORIDE 0.9% 100 ML IV SCH (17:18)
[2021-03-30] MEDS: VALPROIC ACID INJ 500 MG in SODIUM CHLORIDE 0.9% 100 ML IV SCH ×3 (02:23→17:50)
[2021-03-30 05:13] LABS: Basophils % 0.2 % (0.0-0.8); Hematocrit 32.1 VOL% (35.7-47.0); Hemoglobin 10.2 GM/DL (12.0-16.0); Immature Granulocytes % 9.3 %; Immature Granulocytes Absolute 1.83 #; Lymphocytes # 1.9 10*3/uL (1.4-4.0); Lymphocytes % 9.7 % (21.3-54.2); Mean Corpuscular HGB Conc 31.8 GM/DL (32-36); Mean Corpuscular Volume 97.9 FL (87-102); Monocytes % 5.5 % (1.7-12.7); NRBC # 0.11 10*3/uL; Neutrophils % 75.3 % (38.7-73.9); Red Blood Count 3.28 MC/CUMM (3.8-5.5); Red Cell Distribution Width 19.7 % (9.3-17.3); White Blood Count 19.6 T/CUMM (4-12)
[2021-03-30 05:16] LABS: Platelet Count 66 T/CUMM (130-400)
[2021-03-30 05:23] LABS: Calcium 10.1 MG/DL (8.5-10.1); Osmolality,Calculated 300.8 MOS/KG (273-304); Potassium 4.3 MMOL/L (3.5-5.1)
[2021-03-30 05:45] LABS: Hypochromasia 1+; Lymphocytes 10 % (20-55); Microcytosis 1+; Nucleated Red Blood Cells 1 (0-5); Platelet Estimate Decreased; Segmented Neutrophils 82 % (50-85); Total Cells Counted 100
[2021-03-30] MEDS: AMIODARONE INJ 450 MG in DEXTROSE 5% 241 ML IV SCH ×2 (06:51→16:17)
[2021-03-30] MEDS: INSULIN LISPRO 100 UNIT/ML SUBCUT SCH ×3 (08:11→17:51)
[2021-03-30] MEDS ORDERED: METOPROLOL TARTRATE 5 MG/5 ML VIAL IV ONE (08:56)
[2021-03-30] MEDS ORDERED: DIGOXIN 0.5 MG/2 ML AMP IV ONE ×2 (08:59→10:00)
[2021-03-30] MEDS: HYDROCORTISONE 100 MG VIAL IV SCH (09:03)
[2021-03-30] MEDS: INSULIN GLARGINE 100 UNIT/ML SUBCUT SCH (09:03)
[2021-03-30] MEDS: FAMOTIDINE 20 MG/2 ML VIAL IV SCH (09:03)
[2021-03-30] MEDS: DESITIN 4OZ/NYSTATIN 15 GRAM MIXTURE PASTE TOP SCH (09:04)
[2021-03-30] MEDS: MORPHINE 2 MG/1 ML SYRINGE IV PRN ×2 (09:16→16:14)
[2021-03-30 09:54] LABS: ABG Base Excess -5.1 MMOL/L (-2.5-2.5); ABG HCO3 20.1 MMOL/L (20-26); ABG Oxygen Saturation 90.7 % (95-100); ABG PCO2 23.5 MM HG (35-48); ABG PH 7.472 (7.35-7.45); ABG TCO2 15.6 MMOL/L (23-27)
[2021-03-30] MEDS ORDERED: INSULIN GLARGINE 100 UNIT/ML SUBCUT SCH (21:00)
[2021-03-31] MEDS ORDERED: INSULIN GLARGINE 100 UNIT/ML SUBCUT SCH (09:00)
[2021-04-01 12:06] LABS: West Nile Virus Ab, IgG, CSF Negative (Negative); West Nile Virus Ab, IgM, CSF Negative (Negative)
== END 2021-03-30 18:40 | disposition expired | DRG 314 ==
LOC: EDUNIT# → EDBD → N.EDINP 10:59 → N.ED 10:59 → SUATTDRO 14:31 → N.TELES 15:20 → N.CC 03-26 05:37
PROVIDERS: ADMIT Family Medicine; ATTEND Internal Medicine